=== PATIENT | female | born 1980 | race Caucasian/White ===

== ENCOUNTER 2018-09-29 16:37 | Emergency (ER) | payer OTHER, MEDICAID, SELFPAY ==
[2018-09-29 16:40] VITALS: BP 149/94; PULSE 100; RESP 24; TEMP 36.3; O2SAT 97; BMI 20.5
--- NOTE | 2018-09-29 17:41 | ED.EXTPRO ---
HPI - Extremity Problem <RICH Dunn-BC - Last Filed: 09/29/18 19:35> General Chief complaint: Extremity Problem,Nontraumatic Stated complaint: severe leg pain Time Seen by Provider: 09/29/18 17:16 Source: patient Mode of arrival: ambulatory Limitations: no limitations History of Present Illness HPI Narrative: Patient is a 38-year-old female smoker with history of anxiety disorder presents with chief complaint of left with left pain x2 weeks. She has not seen anybody for it. She has not taken anything for it, other than ibuprofen a few days ago. She states that it got worse last night. States that this terrible and she cannot move her leg. She denies any fever nausea vomiting or diarrhea. She adamantly denies any falls, fractures, bone abnormalities. She denies any fevers nausea vomiting or diarrhea. She denies any laceration, abrasion or problems. Related Data Home Medications Medication Instructions Recorded Confirmed [SONG/MAG/ZINC] 1 tab PO TID #0 03/04/17 buprenorphine-naloxone [Suboxone] 16 mg OR #0 06/15/17 Previous Rx's Medication Instructions Recorded ondansetron [Zofran ODT] 4 mg SUBLINGUAL Q6HP PRN #20 odt 03/04/17 pramipexole 0.125 mg PO TID #90 tab 03/22/17 chlordiazepoxide HCl 5 mg PO BID #60 cap 04/01/17 ibuprofen 800 mg PO TIDP PRN #90 tab 04/01/17 clonidine HCl 0.1 mg PO TID #90 tab 04/22/17 orphenadrine citrate 100 mg PO BIDP PRN #60 tab 06/09/17 prednisone 50 mg PO AMCC #5 tab 06/15/17 norethindrone-e.estradiol-iron 1 tab PO QDAY #1 pac 05/25/18 [Blisovi 24 Fe] Allergies Allergy/AdvReac Type Severity Reaction Status Date / Time No Known Allergies Allergy Uncoded 10/07/17 12:33 Review of Systems <LUCA Dunn - Last Filed: 09/29/18 19:35> Constitutional Denies chills, Denies fever(s), Denies frequent falls, Denies headache(s), Denies lethargy and Denies weakness ENT Ears, Nose, Mouth, and Throat: Denies headache(s) Cardiovascular Denies dyspnea and Denies dyspnea on exertion Respiratory Denies chest congestion, Denies pain on inspiration, Denies pain with cough, Denies dyspnea and Denies dyspnea on exertion Gastrointestinal Gastrointestinal: Denies abdominal pain, Denies diarrhea, Denies nausea and Denies vomiting Genitourinary Denies dysuria Musculoskeletal Reports as per HPI and Denies numbness Integumentary/Breasts Reports as per HPI Neurologic Denies frequent falls, Denies headache(s), Denies lack of coordination, Denies numbness and Denies weakness PFSH <XIN Dunn - Last Filed: 09/29/18 19:35> Family History (Updated 04/06/17 @ 00:00 by Conversion Provider) Father Age: 62 Diabetes mellitus Hypertension High cholesterol Grandfather Heart disease Social History Smoking Status: Current every day smoker Family History (Updated 04/06/17 @ 00:00 by Conversion Provider) Father Age: 62 Diabetes mellitus Hypertension High cholesterol Grandfather Heart disease Social History Smoking Status: Current every day smoker Exam <XIN Dunn - Last Filed: 09/29/18 19:35> Narrative Exam Narrative: GENERAL: This is a well-nourished, well-developed patient, sitting in wheelchair HEAD: Atraumatic. Normocephalic. No temporal or scalp tenderness. EYES: Pupils equal round and reactive. Extraocular motions intact. No scleral icterus. No injection or drainage. NECK: Trachea midline. No JVD or lymphadenopathy. Supple, nontender, no meningeal signs. CARDIOVASCULAR: Regular rate and rhythm RESPIRATORY: Clear to auscultation. Breath sounds equal bilaterally. No wheezes, rales, or rhonchi. GASTROINTESTINAL: Abdomen soft, non-tender, nondistended. No hepato-splenomegaly, or palpable masses. No guarding. EXTREMITIES: No clubbing, cyanosis, or edema. No joint tenderness, effusion, or edema noted. palpable pedal pulses bilaterally. diffuse tenderness to palpation of left thigh. Patient is able to hold left leg off of stretcher as well as bend left knee to 90?. BACK: Nontender without deformity or crepitance. No flank tenderness. NEURO: AOx3. Wearing sunglasses in the exam room. SKIN: Birthmark noted over left knee. Patient states is normal for her. No abrasion laceration ecchymosis noted left leg. Initial Vital Signs Initial Vital Signs: Vital Signs Temperature 97.3 F L 09/29/18 16:40 Pulse Rate 100 H 09/29/18 16:40 Respiratory Rate 24 09/29/18 16:40 Blood Pressure 149/94 H 09/29/18 16:40 Pulse Oximetry 97 09/29/18 16:40 <Akhil Christiansen DO - Last Filed: 09/30/18 03:23> Initial Vital Signs Initial Vital Signs: Vital Signs Temperature 97.3 F L 09/29/18 16:40 Pulse Rate 100 H 09/29/18 16:40 Respiratory Rate 24 09/29/18 16:40 Blood Pressure 149/94 H 09/29/18 16:40 Pulse Oximetry 97 09/29/18 16:40 Course <IXN Dunn - Last Filed: 09/29/18 19:35> Orders Ordered: Discontinued Medications Acetaminophen (Tylenol) 975 mg PO NOW ONE Stop: 09/29/18 19:08 Last Admin: 09/29/18 19:13 Dose: 975 mg Cyclobenzaprine HCl (Flexeril) 10 mg PO NOW ONE Stop: 09/29/18 19:08 Last Admin: 09/29/18 19:13 Dose: 10 mg Ketorolac Tromethamine (Toradol) 60 mg IM NOW ONE Stop: 09/29/18 17:54 Last Admin: 09/29/18 18:18 Dose: 60 mg Vital Signs - 8 hr 09/29/18 16:40 09/29/18 19:23 Temperature 97.3 F L Pulse Rate 100 H 80 Respiratory Rate 24 18 Blood Pressure 149/94 H Blood Pressure [Left Arm] 128/76 Pulse Oximetry 97 100 <Akhil Christiansen DO - Last Filed: 09/30/18 03:23> Orders Ordered: Discontinued Medications Acetaminophen (Tylenol) 975 mg PO NOW ONE Stop: 09/29/18 19:08 Last Admin: 09/29/18 19:13 Dose: 975 mg Cyclobenzaprine HCl (Flexeril) 10 mg PO NOW ONE Stop: 09/29/18 19:08 Last Admin: 09/29/18 19:13 Dose: 10 mg Ketorolac Tromethamine (Toradol) 60 mg IM NOW ONE Stop: 09/29/18 17:54 Last Admin: 09/29/18 18:18 Dose: 60 mg Vital Signs - 8 hr 09/29/18 16:40 09/29/18 19:23 Temperature 97.3 F L Pulse Rate 100 H 80 Respiratory Rate 24 18 Blood Pressure 149/94 H Blood Pressure [Left Arm] 128/76 Pulse Oximetry 97 100 MDM - Extremity (Nontraumatic) <XIN Dunn - Last Filed: 09/29/18 19:35> Imaging Data Venous US: Radiologist's impression: [address] [address] Ultrasound Report Signed Patient: Urmila Wiley [facility]#: [id number] : 1980Acct:[id number] Age/Sex: 38 / FDate of Service: 09/29/18 Loc: ED Accession Number: [id number] Procedure: US periph venous low extrem lt Ordering Provider: Steff Norman PROCEDURE: US PERIPH VENOUS LOW EXTREM LT INDICATIONS: PAIN TECHNIQUE: Real-time imaging, as well as color and pulse Doppler interrogation, were performed of the lower extremity deep veins from the inguinal ligament to the popliteal fossa. COMPARISON: None. FINDINGS: The common femoral, femoral and popliteal veins are normally compressible, and free of intraluminal thrombus. Color and pulse Doppler demonstrate normal phasic intraluminal flow. There is normal augmentation response to distal compression maneuver. IMPRESSION: 1. No evidence of deep venous thrombosis in the left lower extremity. Dictated by: Lucas Ospina M.D. on 09/29/2018 at 19:01 Approved by: Lucas Ospina M.D. on 09/29/2018 at 19:01 [facility] Narrative Medical decision making narrative: The patient is a 38-year-old female presents with a chief complaint of left leg pain. She had a negative ultrasound for DVT, which I obtained due to her risk factors of smoking with control. She was given Toradol in the emergency department for pain. Upon re-evaluation, she was lying on her stretcher very relaxed, appeared to be sleeping respirations even. I discussed an x-ray with her, but the patient did not see the reason as there was no trauma or bone injury. she was given Tylenol as well as Flexeril the emergency department. She declined to give a urinalysis during her stay in the emergency department. She was discharged with no issues. I encouraged her to follow up with primary care provider, and discussed coming back to the emergency department for any acute concerns Discharge Plan Departure Patient Disposition: Home Clinical Impression: Acute leg pain Qualifiers: Laterality: left Qualified Code(s): M79.605 - Pain in left leg Discharge Date/Time: 09/29/18 19:54 Interventions: ED Discharge Assessment Last Done: 09/29/18 19:53 Instructions: How To Perform RICE (Rest, Ice, Compress, Elevate), DI for Leg Pain Activity Restrictions/Additional Instructions: Your ultrasound shows no blood clot. Please use rest ice compression elevation. Please take fapb-ann-glnuwge pain medications as needed and able. I would take ibuprofen 6 hours after the Toradol injection. Please follow up with primary care provider if necessary. Radha Capellan is listed as your PCP. You can find a primary care provider by contacting [facility] at [phone]. Prescriptions: No Action [SONG/MAG/ZINC] 1 tab PO TID Qty: 0 RF: 0 ondansetron [Zofran ODT] 4 MG tablet,disintegrating 4 mg Sublingual Q6HP PRNQty: 20 RF: 0 pramipexole 0.125 MG tablet 0.125 mg PO TID Qty: 90 RF: 1 ibuprofen 800 MG tablet 800 mg PO TIDP PRNQty: 90 RF: 3 chlordiazepoxide HCl 5 MG capsule 5 mg PO BID Qty: 60 RF: 0 clonidine HCl 0.1 MG tablet 0.1 mg PO TID Qty: 90 RF: 0 orphenadrine citrate 100 MG tablet extended release 100 mg PO BIDP PRNQty: 60 RF: 0 buprenorphine-naloxone [Suboxone] 8 MG/2 MG film 16 mg OR Qty: 0 RF: 0 prednisone 50 MG tablet 50 mg PO AMCC Qty: 5 RF: 0 norethindrone-e.estradiol-iron [Blisovi 24 Fe] 1 mg-20 mcg (24)/75 mg (4) tablet 1 tab PO QDAY Qty: 1 RF: 6 Referrals: Kyung Capellan PA-C [Primary Care Provider] - <Akhil Christiansen DO - Last Filed: 09/30/18 03:23> Cosign ED Attending Shelby Attestation: I was immediately available in the department for consultation. Documentation has been reviewed. I agree with assessment and plan.
--- NOTE | 2018-09-29 18:12 | DI.US.S_ITS ---
PROCEDURE: US PERIPH VENOUS LOW EXTREM LT INDICATIONS: PAIN TECHNIQUE: Real-time imaging, as well as color and pulse Doppler interrogation, were performed of the lower extremity deep veins from the inguinal ligament to the popliteal fossa. COMPARISON: None. FINDINGS: The common femoral, femoral and popliteal veins are normally compressible, and free of intraluminal thrombus. Color and pulse Doppler demonstrate normal phasic intraluminal flow. There is normal augmentation response to distal compression maneuver. IMPRESSION: 1. No evidence of deep venous thrombosis in the left lower extremity. Dictated by: Lucas Ospina M.D. on 09/29/2018 at 19:01 Approved by: Lucas Ospina M.D. on 09/29/2018 at 19:01
[2018-09-29] MEDS: KETOROLAC 60 MG/2 ML VIAL IM (18:18)
[2018-09-29] MEDS: CYCLOBENZAPRINE 10 MG TABLET PO (19:13)
[2018-09-29] MEDS: ACETAMINOPHEN 325 MG TABLET 975 MG PO (19:13)
--- NOTE | 2018-09-29 19:22 | ED_ITS ---
HPI - Extremity Problem <RICH Dunn-BC - Last Filed: 09/29/18 19:35> General Chief complaint: Extremity Problem,Nontraumatic Stated complaint: severe leg pain Time Seen by Provider: 09/29/18 17:16 Source: patient Mode of arrival: ambulatory Limitations: no limitations History of Present Illness HPI Narrative: Patient is a 38-year-old female smoker with history of anxiety disorder presents with chief complaint of left with left pain x2 weeks. She has not seen anybody for it. She has not taken anything for it, other than ibuprofen a few days ago. She states that it got worse last night. States that this terrible and she cannot move her leg. She denies any fever nausea vomiting or diarrhea. She adamantly denies any falls, fractures, bone abnormalities. She denies any fevers nausea vomiting or diarrhea. She denies any laceration, abrasion or problems. Related Data Home Medications Medication Instructions Recorded Confirmed [SONG/MAG/ZINC] 1 tab PO TID #0 03/04/17 buprenorphine-naloxone [Suboxone] 16 mg OR #0 06/15/17 Previous Rx's Medication Instructions Recorded ondansetron [Zofran ODT] 4 mg SUBLINGUAL Q6HP PRN #20 odt 03/04/17 pramipexole 0.125 mg PO TID #90 tab 03/22/17 chlordiazepoxide HCl 5 mg PO BID #60 cap 04/01/17 ibuprofen 800 mg PO TIDP PRN #90 tab 04/01/17 clonidine HCl 0.1 mg PO TID #90 tab 04/22/17 orphenadrine citrate 100 mg PO BIDP PRN #60 tab 06/09/17 prednisone 50 mg PO AMCC #5 tab 06/15/17 norethindrone-e.estradiol-iron 1 tab PO QDAY #1 pac 05/25/18 [Blisovi 24 Fe] Allergies Allergy/AdvReac Type Severity Reaction Status Date / Time No Known Allergies Allergy Uncoded 10/07/17 12:33 Review of Systems <LUCA Dunn - Last Filed: 09/29/18 19:35> Constitutional Denies chills, Denies fever(s), Denies frequent falls, Denies headache(s), Denies lethargy and Denies weakness ENT Ears, Nose, Mouth, and Throat: Denies headache(s) Cardiovascular Denies dyspnea and Denies dyspnea on exertion Respiratory Denies chest congestion, Denies pain on inspiration, Denies pain with cough, Denies dyspnea and Denies dyspnea on exertion Gastrointestinal Gastrointestinal: Denies abdominal pain, Denies diarrhea, Denies nausea and Den ies vomiting Genitourinary Denies dysuria Musculoskeletal Reports as per HPI and Denies numbness Integumentary/Breasts Reports as per HPI Neurologic Denies frequent falls, Denies headache(s), Denies lack of coordination, Denies numbness and Denies weakness PFSH <XIN Dunn - Last Filed: 09/29/18 19:35> Family History (Updated 04/06/17 @ 00:00 by Conversion Provider) Father Age: 62 Diabetes mellitus Hypertension High cholesterol Grandfather Heart disease Social History Smoking Status: Current every day smoker Family History (Updated 04/06/17 @ 00:00 by Conversion Provider) Father Age: 62 Diabetes mellitus Hypertension High cholesterol Grandfather Heart disease Social History Smoking Status: Current every day smoker Exam <XIN Dunn - Last Filed: 09/29/18 19:35> Narrative Exam Narrative: GENERAL: This is a well-nourished, well-developed patient, sitting in wheelchair HEAD: Atraumatic. Normocephalic. No temporal or scalp tenderness. EYES: Pupils equal round and reactive. Extraocular motions intact. No scleral icterus. No injection or drainage. NECK: Trachea midline. No JVD or lymphadenopathy. Supple, nontender, no meningeal signs. CARDIOVASCULAR: Regular rate and rhythm RESPIRATORY: Clear to auscultation. Breath sounds equal bilaterally. No wheezes, rales, or rhonchi. GASTROINTESTINAL: Abdomen soft, non-tender, nondistended. No hepato- splenomegaly, or palpable masses. No guarding. EXTREMITIES: No clubbing, cyanosis, or edema. No joint tenderness, effusion, or edema noted. palpable pedal pulses bilaterally. diffuse tenderness to palpation of left thigh. Patient is able to hold left leg off of stretcher as well as bend left knee to 90?. BACK: Nontender without deformity or crepitance. No flank tenderness. NEURO: AOx3. Wearing sunglasses in the exam room. SKIN: Birthmark noted over left knee. Patient states is normal for her. No abrasion laceration ecchymosis noted left leg. Initial Vital Signs Initial Vital Signs: Vital Signs Temperature 97.3 F L 09/29/18 16:40 Pulse Rate 100 H 09/29/18 16:40 Respiratory Rate 24 09/29/18 16:40 Blood Pressure 149/94 H 09/29/18 16:40 Pulse Oximetry 97 09/29/18 16:40 <Akhil Christiansen DO - Last Filed: 09/30/18 03:23> Initial Vital Signs Initial Vital Signs: Vital Signs Temperature 97.3 F L 09/29/18 16:40 Pulse Rate 100 H 09/29/18 16:40 Respiratory Rate 24 09/29/18 16:40 Blood Pressure 149/94 H 09/29/18 16:40 Pulse Oximetry 97 09/29/18 16:40 Course <XIN Dunn - Last Filed: 09/29/18 19:35> Orders Ordered: Discontinued Medications Acetaminophen (Tylenol) 975 mg PO NOW ONE Stop: 09/29/18 19:08 Last Admin: 09/29/18 19:13 Dose: 975 mg Cyclobenzaprine HCl (Flexeril) 10 mg PO NOW ONE Stop: 09/29/18 19:08 Last Admin: 09/29/18 19:13 Dose: 10 mg Ketorolac Tromethamine (Toradol) 60 mg IM NOW ONE Stop: 09/29/18 17:54 Last Admin: 09/29/18 18:18 Dose: 60 mg Vital Signs - 8 hr 09/29/18 16:40 09/29/18 19:23 Temperature 97.3 F L Pulse Rate 100 H 80 Respiratory Rate 24 18 Blood Pressure 149/94 H Blood Pressure [Left Arm] 128/76 Pulse Oximetry 97 100 <Akhil Christiansen DO - Last Filed: 09/30/18 03:23> Orders Ordered: Discontinued Medications Acetaminophen (Tylenol) 975 mg PO NOW ONE Stop: 09/29/18 19:08 Last Admin: 09/29/18 19:13 Dose: 975 mg Cyclobenzaprine HCl (Flexeril) 10 mg PO NOW ONE Stop: 09/29/18 19:08 Last Admin: 09/29/18 19:13 Dose: 10 mg Ketorolac Tromethamine (Toradol) 60 mg IM NOW ONE Stop: 09/29/18 17:54 Last Admin: 09/29/18 18:18 Dose: 60 mg Vital Signs - 8 hr 09/29/18 16:40 09/29/18 19:23 Temperature 97.3 F L Pulse Rate 100 H 80 Respiratory Rate 24 18 Blood Pressure 149/94 H Blood Pressure [Left Arm] 128/76 Pulse Oximetry 97 100 MDM - Extremity (Nontraumatic) <XIN Dunn - Last Filed: 09/29/18 19:35> Imaging Data Venous US: Radiologist's impression: [address] [address] Ultrasound Report Signed Patient: Urmila Wiley [facility]#: [id number] : 1980Acct:[id number] Age/Sex: 38 / FDate of Service: 09/29/18 Loc: ED Accession Number: [id number] Procedure: US periph venous low extrem lt Ordering Provider: Steff Norman PROCEDURE: US PERIPH VENOUS LOW EXTREM LT INDICATIONS: PAIN TECHNIQUE: Real-time imaging, as well as color and pulse Doppler interrogation, were performed of the lower extremity deep veins from the inguinal ligament to the popliteal fossa. COMPARISON: None. FINDINGS: The common femoral, femoral and popliteal veins are normally compressible, and free of intraluminal thrombus. Color and pulse Doppler demonstrate normal phasic intraluminal flow. There is normal augmentation response to distal compression maneuver. IMPRESSION: 1. No evidence of deep venous thrombosis in the left lower extremity. Dictated by: Lucas Ospina M.D. on 09/29/2018 at 19:01 Approved by: Lucas Ospina M.D. on 09/29/2018 at 19:01 [facility] Narrative Medical decision making narrative: The patient is a 38-year-old female presents with a chief complaint of left leg pain. She had a negative ultrasound for DVT, which I obtained due to her risk factors of smoking with control. She was given Toradol in the emergency department for pain. Upon re-evaluation, she was lying on her stretcher very relaxed, appeared to be sleeping respirations even. I discussed an x-ray with her, but the patient did not see the reason as there was no trauma or bone injury. she was given Tylenol as well as Flexeril the emergency department. She declined to give a urinalysis during her stay in the emergency department. She was discharged with no issues. I encouraged her to follow up with primary care provider, and discussed coming back to the emergency department for any acute concerns Discharge Plan Departure Patient Disposition: Home Clinical Impression: Acute leg pain Qualifiers: Laterality: left Qualified Code(s): M79.605 - Pain in left leg Discharge Date/Time: 09/29/18 19:54 Interventions: ED Discharge Assessment Last Done: 09/29/18 19:53 Instructions: How To Perform RICE (Rest, Ice, Compress, Elevate), DI for Leg Pain Activity Restrictions/Additional Instructions: Your ultrasound shows no blood clot. Please use rest ice compression elevation. Please take ofrb-hny-ivhkdoz pain medications as needed and able. I would take ibuprofen 6 hours after the Toradol injection. Please follow up with primary care provider if necessary. Radha Capellan is listed as your PCP. You can find a primary care provider by contacting [facility] at [phone]. Prescriptions: No Action [SONG/MAG/ZINC] 1 tab PO TID Qty: 0 RF: 0 ondansetron [Zofran ODT] 4 MG tablet,disintegrating 4 mg Sublingual Q6HP PRNQty: 20 RF: 0 pramipexole 0.125 MG tablet 0.125 mg PO TID Qty: 90 RF: 1 ibuprofen 800 MG tablet 800 mg PO TIDP PRNQty: 90 RF: 3 chlordiazepoxide HCl 5 MG capsule 5 mg PO BID Qty: 60 RF: 0 clonidine HCl 0.1 MG tablet 0.1 mg PO TID Qty: 90 RF: 0 orphenadrine citrate 100 MG tablet extended release 100 mg PO BIDP PRNQty: 60 RF: 0 buprenorphine-naloxone [Suboxone] 8 MG/2 MG film 16 mg OR Qty: 0 RF: 0 prednisone 50 MG tablet 50 mg PO AMCC Qty: 5 RF: 0 norethindrone-e.estradiol-iron [Blisovi 24 Fe] 1 mg-20 mcg (24)/75 mg (4) tablet 1 tab PO QDAY Qty: 1 RF: 6 Referrals: Kyung Capellan PA-C [Primary Care Provider] - <Akhil Christiansen DO - Last Filed: 09/30/18 03:23> Cosign ED Attending [place] Attestation: I was immediately available in the department for consultation. Documentation has been reviewed. I agree with assessment and plan.
[2018-09-29 19:23] VITALS: BP 128/76; PULSE 80; RESP 18; O2SAT 100
== END 2018-09-29 19:54 | disposition home or self-care (01) ==
PROVIDERS: Emergency Provider Nurse Practitioner Family; Family Provider Physician Assistant; PCP Physician Assistant
DX: M79.605 Pain in left leg (principal)
CPT/HCPCS: 93971; 96372; 99283; J1885

== ENCOUNTER 2018-10-08 10:18 | Inpatient (IN) | payer OTHER, MEDICAID, SELFPAY ==
[2018-10-08] VITALS (13 sets, daily range): BP systolic 120–178; BP diastolic 73–102; PULSE 81–130; RESP 14–22; TEMP 36.2–37.4; O2SAT 98–100; BMI 19.3
--- NOTE | 2018-10-08 | DI.RAD.S_ITS ---
PROCEDURE: XR PELVIS 1-2V INDICATIONS: LEFT HIP FRACTURE TECHNIQUE: 2 view(s) of the pelvis acquired. COMPARISON: [facility], CT, CT ANGIO ABDOMEN/FEMORAL, 10/08/2018, 11:40. FINDINGS: Bones: No dislocations. No suspicious bony lesions. There is a diagonal fracture that appears acute or subacute at the femoral neck on the left, low femoral neck positioning. Soft tissues: Visualized bowel gas pattern is normal. No suspicious soft tissue calcifications. IMPRESSION: Acute or subacute left femoral neck fracture, low femoral neck positioning. Dictated by: Eliazar Crouch M.D. on 10/08/2018 at 17:51 Approved by: Eliazar Crouch M.D. on 10/08/2018 at 17:53
--- NOTE | 2018-10-08 | DI.RAD.S_ITS ---
PROCEDURE: XR HIP W PEL IF DONE RT 2V INDICATIONS: LEFT HIP REPAIR TECHNIQUE: 2 view(s) of the hip acquired. COMPARISON: None. FINDINGS: Bones: Patient is status post a left dynamic hip screw placement, with hardware components in expected positions. The hip joint appears congruent. The visualized bony structures appear intact. Soft tissues: Overlying postoperative changes are noted. No suspicious soft tissue densities. IMPRESSION: Expected postoperative change after low femoral neck fracture by placement of a lateral fixation plate and dynamic hip screw. Alignment is anatomic. Dictated by: Eliazar Crouch M.D. on 10/08/2018 at 21:14 Approved by: Eliazar Crouch M.D. on 10/08/2018 at 21:15
--- NOTE | 2018-10-08 10:22 | DI.US.S_ITS ---
PROCEDURE: US [facility] VENOUS LOW EXTREM LT INDICATIONS: pain, swelling, DVT? TECHNIQUE: Real-time imaging, as well as color and pulse Doppler interrogation, were performed of the lower extremity deep veins from the inguinal ligament to the popliteal fossa. COMPARISON: [facility], [facility] VENOUS LOW EXTREM LT, 09/29/2018, 18:27. FINDINGS: The common femoral, femoral and popliteal veins are normally compressible, and free of intraluminal thrombus. Color and pulse Doppler demonstrate normal phasic intraluminal flow. There is normal augmentation response to distal compression maneuver. IMPRESSION: No DVT as cause of anterior thigh pain left lower extremity. Dictated by: Eliazar Crouch M.D. on 10/08/2018 at 11:32 Approved by: Eliazar Crouch M.D. on 10/08/2018 at 11:33
--- NOTE | 2018-10-08 10:30 | ED_ITS ---
HPI - Extremity Injury (Lower) General Chief Complaint: Extremity Problem,Nontraumatic Stated Complaint: Leg Pain Time Seen by Provider: 10/08/18 10:22 Source: patient and EMS Mode of arrival: EMS Limitations: no limitations History of Present Illness HPI Narrative: 38-year-old female former smoker with opioid history returns for re-evaluation of severe pain in her left lower extremity. She denies any injury but states that there is some swelling and redness. she missed her Suboxone appointment today. She denies fever or chills. She denies nausea, vomiting. she denies any street drugs. She denies any use of opioids since 2017. She has severe pain in her leg with motion, improved with rest. She did fall over on her leg earlier today and that seemed to set her pain off. She was evaluated 1 week ago for pain in her leg x2 weeks. At that visit she had normal US, but not other significant findings. Injury: Left: thigh Place: home Severity: moderate Relieving factors: rest Exacerbating factors: weight bearing and movement Other symptoms: none Related Data Home Medications Medication Instructions Recorded Confirmed buprenorphine-naloxone [Suboxone] 16 mg SUBLINGUAL DAILY #0 06/15/17 10/08/18 clonidine HCl 0.1 mg PO BID 10/08/18 10/08/18 hydroxyzine HCl 25 mg PO TID 10/08/18 10/08/18 norethindrone-e.estradiol-iron 1 tab PO DAILY 10/08/18 10/08/18 [Keisha 24 Fe] Previous Rx's Medication Instructions Recorded doxycycline hyclate 100 mg PO BID #20 tab 10/08/18 Allergies Allergy/AdvReac Type Severity Reaction Status Date / Time No Known Drug Allergies Allergy Verified 10/08/18 10:40 Review of Systems Constitutional Denies chills, Denies fever(s), Denies lethargy and Denies weakness Eyes Denies change in vision, Denies eye discharge, Denies irritation and Denies loss of vision ENT Ears, Nose, Mouth, and Throat: Denies change in voice, Denies neck pain and Denies sore throat Cardiovascular Denies chest pain, Denies irregular heart rhythm, Denies lightheadedness, Denies palpitations, Denies dyspnea, Denies dyspnea on exertion and Denies orthopnea Respiratory Denies cough, Denies dyspnea, Denies dyspnea on exertion and Denies wheezing Gastrointestinal Gastrointestinal: Denies abdominal pain, Denies change in bowel habits, Denies diarrhea, Denies nausea and Denies vomiting Genitourinary Denies hematuria, Denies flank pain, Denies urinary incontinence and Denies urinary urgency Musculoskeletal Reports limited range of motion and Denies neck pain Integumentary/Breasts Denies pruritus, Reports erythema, Denies rash, Reports skin pain, Reports skin swelling and Denies wounds Neurologic Denies confusion, Denies loss of vision and Denies weakness Psychiatric Denies anxiety, Denies confusion, Denies depression, Denies homicidal ideation and Denies suicidal ideation Endocrine Denies palpitations Hematologic/Lymphatic Denies easy bruising Allergic/Immunologic Denies wheezing PFSH Family History (Updated 04/06/17 @ 00:00 by Conversion Provider) Father Age: 62 Diabetes mellitus Hypertension High cholesterol Grandfather Heart disease Social History Smoking Status: Current every day smoker Family History Father Age: 62 Diabetes mellitus Hypertension High cholesterol Grandfather Heart disease Social History Smoking Status: Current every day smoker Exam Narrative Exam Narrative: GENERAL: 38F appears disheveled, tearful, rubbing her left leg. Thin, unkempt HEAD: Atraumatic. Normocephalic. No temporal or scalp tenderness. EYES: Pupils equal round and reactive. Extraocular motions intact. No scleral icterus. No injection or drainage. ENT: Nose without bleeding, purulent drainage or septal hematoma. Throat without erythema, tonsillar hypertrophy or exudate. Uvula midline. Airway patent. NECK: Trachea midline. No JVD or lymphadenopathy. Supple, nontender, no meningeal signs. CARDIOVASCULAR: Regular rate and rhythm without murmurs, gallops, or rubs. RESPIRATORY: Clear to auscultation. Breath sounds equal bilaterally. No wheezes, rales, or rhonchi. GASTROINTESTINAL: Abdomen soft, non-tender, nondistended. No hepato- splenomegaly, or palpable masses. No guarding. EXTREMITIES: Mild edema, erythema on dorsum of foot and anterior hutchinson. Patient tender in medial thigh. No erythema, warmth, induration or fluctuance here. BACK: Nontender without deformity or crepitance. No flank tenderness. NEURO: AOx3. Initial Vital Signs Initial Vital Signs: Vital Signs Temperature 97.5 F L 10/08/18 10:30 Pulse Rate 101 H 10/08/18 10:30 Respiratory Rate 20 10/08/18 10:30 Blood Pressure 139/79 10/08/18 10:30 Pulse Oximetry 100 10/08/18 10:30 Course Orders Ordered: ED Orders 10/08/18 10:15 Basic Metabolic Panel Stat C-Reactive Protein Quant Stat C-Reactive Protein Quant Stat Complete Blood Count AUTO DIFF Stat Creatine Kinase Stat Erythrocyte Sedimentation Rate Stat Procalcitonin Stat 10/08/18 10:22 US periph venous low extrem lt Stat 10/08/18 11:24 CT angio abdomen/femoral Stat 10/08/18 13:34 Urine Drug Screen, Rapid Stat 10/08/18 14:12 Consult to Physical Therapy Evaluate & Treat 10/08/18 15:41 Lactate (Lactic Acid) Stat Discontinued Medications Hydromorphone HCl (Dilaudid) 1 mg IV NOW ONE Stop: 10/08/18 15:11 Vancomycin HCl 1,250 mg/ (Sodium Chloride) 250 mls @ 250 mls/hr IV NOW ONE Stop: 10/08/18 15:11 Last Admin: 10/08/18 15:20 Dose: 250 mls/hr Ketorolac Tromethamine (Toradol) 15 mg IV NOW ONE Stop: 10/08/18 11:14 Last Admin: 10/08/18 11:22 Dose: 15 mg Lorazepam (Ativan) 1 mg IV NOW ONE Stop: 10/08/18 11:49 Last Admin: 10/08/18 12:04 Dose: 1 mg Reevaluation(s) Reevaluation #1: Patient having significant difficulties with ambulation despite extensive helped by myself and nursing staff. She lives at home with very little support. Though imaging, exam and labs would not suggest any significant underlying etiology she is unable to ambulate safely and, therefore, physical therapy was asked to evaluate the patient. Please see their note for the details but they state the patient cannot safely ambulate and is a significant fall risk Consultations Consultation #1: Dr. Doe happy to accept on her service Vital Signs - 8 hr 10/08/18 10:30 10/08/18 11:24 10/08/18 14:17 Temperature 97.5 F L Pulse Rate 101 H 85 98 H Respiratory Rate 20 18 20 Blood Pressure 139/79 Blood Pressure [Right Arm] 148/85 H 130/96 H Pulse Oximetry 100 100 100 10/08/18 15:50 Temperature Pulse Rate 84 Respiratory Rate 18 Blood Pressure Blood Pressure [Right Arm] 120/73 Pulse Oximetry 99 MDM - Extremity Injury (Lower) Lab Data Result diagrams: 10/08/18 10:15 10/08/18 10:15 Lab Results 10/08/18 10/08/18 10/08/18 Range/Units 10:15 10:15 10:15 WBC (4.5-11.0) X10^3/uL RBC (4.0-5.2) X10^6/uL Hgb (12.0-16.0) g/dL Hct (36-46) % MCV (80-100) fL MCH (26-34) PG MCHC (30-36) % RDW (11.6-14.8) % Plt Count (150-400) X10^3/uL Neut % (Auto) (50-75) % Lymph % (Auto) (25-40) % [place] % (Auto) (3-14) % Eos % (Auto) (2-4) % Baso % (Auto) (0-2) % Neut # (Auto) (8663-4843) /uL Lymph # (Auto) (6563-5916) /uL [place] # (Auto) (0-900) /uL Eos # (Auto) (0-450) /uL Baso # (Auto) (0-100) /uL ESR 52 H (0-20) MM/HR Sodium (137-145) mmol/L Potassium (3.4-5.1) mmol/L Chloride (98-107) mmol/L Carbon Dioxide (22-32) mmol/L BUN (7-17) mg/dL Creatinine (0.52-1.04) mg/dL Estimated GFR (>60) mL/min BUN/Creatinine Ratio (6-22) Glucose (70-100) mg/dL Lactate (0.7-2.1) mmol/L Calcium (8.4-10.2) mg/dL Total Creatine Kinase (30-135) U/L C-Reactive Protein 3.2 H (<1.0) mg/dL Procalcitonin < 0.05 (<0.5) ng/mL Urine Opiates Screen (Negative) Ur Oxycodone Screen (Negative) Urine Methadone Screen (Negative) Ur Barbiturates Screen (Negative) U Tricyclic Antidepress (Negative) Ur Phencyclidine Scrn (Negative) Ur Amphetamines Screen (Negative) U Methamphetamines Scrn (Negative) Ur MDMA Scrn (Ecstasy) (Negative) U Benzodiazepines Scrn (Negative) Urine Cocaine Screen (Negative) U Marijuana (THC) Screen (Negative) 10/08/18 10/08/18 10/08/18 Range/Units 10:15 10:15 10:15 WBC 7.6 (4.5-11.0) X10^3/uL RBC 4.62 (4.0-5.2) X10^6/uL Hgb 13.1 (12.0-16.0) g/dL Hct 39.2 (36-46) % MCV 84.9 (80-100) fL MCH 28.3 (26-34) PG MCHC 33.4 (30-36) % RDW 13.1 (11.6-14.8) % Plt Count 430 H (150-400) X10^3/uL Neut % (Auto) 57.7 (50-75) % Lymph % (Auto) 29.6 (25-40) % [place] % (Auto) 8.8 (3-14) % Eos % (Auto) 3.1 (2-4) % Baso % (Auto) 0.8 (0-2) % Neut # (Auto) 4400 (3040-4262) /uL Lymph # (Auto) 2200 (0298-1264) /uL [place] # (Auto) 700 (0-900) /uL Eos # (Auto) 200 (0-450) /uL Baso # (Auto) 100 (0-100) /uL ESR (0-20) MM/HR Sodium 141 (137-145) mmol/L Potassium 3.3 L (3.4-5.1) mmol/L Chloride 100 (98-107) mmol/L Carbon Dioxide 29 (22-32) mmol/L BUN 16 (7-17) mg/dL Creatinine 0.60 (0.52-1.04) mg/dL Estimated GFR > 60.0 (>60) mL/min BUN/Creatinine Ratio 26.7 H (6-22) Glucose 115 H (70-100) mg/dL Lactate (0.7-2.1) mmol/L Calcium 9.5 (8.4-10.2) mg/dL Total Creatine Kinase 129 (30-135) U/L C-Reactive Protein 3.2 H (<1.0) mg/dL Procalcitonin (<0.5) ng/mL Urine Opiates Screen (Negative) Ur Oxycodone Screen (Negative) Urine Methadone Screen (Negative) Ur Barbiturates Screen (Negative) U Tricyclic Antidepress (Negative) Ur Phencyclidine Scrn (Negative) Ur Amphetamines Screen (Negative) U Methamphetamines Scrn (Negative) Ur MDMA Scrn (Ecstasy) (Negative) U Benzodiazepines Scrn (Negative) Urine Cocaine Screen (Negative) U Marijuana (THC) Screen (Negative) 10/08/18 10/08/18 Range/Units 13:34 15:41 WBC (4.5-11.0) X10^3/uL RBC (4.0-5.2) X10^6/uL Hgb (12.0-16.0) g/dL Hct (36-46) % MCV (80-100) fL MCH (26-34) PG MCHC (30-36) % RDW (11.6-14.8) % Plt Count (150-400) X10^3/uL Neut % (Auto) (50-75) % Lymph % (Auto) (25-40) % [place] % (Auto) (3-14) % Eos % (Auto) (2-4) % Baso % (Auto) (0-2) % Neut # (Auto) (9201-0763) /uL Lymph # (Auto) (3223-8113) /uL [place] # (Auto) (0-900) /uL Eos # (Auto) (0-450) /uL Baso # (Auto) (0-100) /uL ESR (0-20) MM/HR Sodium (137-145) mmol/L Potassium (3.4-5.1) mmol/L Chloride (98-107) mmol/L Carbon Dioxide (22-32) mmol/L BUN (7-17) mg/dL Creatinine (0.52-1.04) mg/dL Estimated GFR (>60) mL/min BUN/Creatinine Ratio (6-22) Glucose (70-100) mg/dL Lactate 0.8 (0.7-2.1) mmol/L Calcium (8.4-10.2) mg/dL Total Creatine Kinase (30-135) U/L C-Reactive Protein (<1.0) mg/dL Procalcitonin (<0.5) ng/mL Urine Opiates Screen Negative (Negative) Ur Oxycodone Screen Negative (Negative) Urine Methadone Screen Negative (Negative) Ur Barbiturates Screen Negative (Negative) U Tricyclic Antidepress Negative (Negative) Ur Phencyclidine Scrn Negative (Negative) Ur Amphetamines Screen Positive H (Negative) U Methamphetamines Scrn Positive H (Negative) Ur MDMA Scrn (Ecstasy) Negative (Negative) U Benzodiazepines Scrn Negative (Negative) Urine Cocaine Screen Negative (Negative) U Marijuana (THC) Screen Negative (Negative) Imaging Data Venous US: Radiologist's impression: [address] [address] Ultrasound Report Signed Patient: Urmila Wiley MMR#: [id number] : 1980Acct:[id number] Age/Sex: 38 / FDate of Service: 10/08/18 Loc: ED Accession Number: [id number] Procedure: [facility] venous low extrem lt Ordering Provider: Akhil Christiansen D.O. [facility]ED[facility] V[facility] LOW EXTREM LT INDICATIONS: pain, swelling, DVT? TECHNIQUE: Real-time imaging, as well as color and pulse Doppler interrogation, were performed of the lower extremity deep veins from the inguinal ligament to the popliteal fossa. COMPARISON: [facility], PERIP VENOUS LOW EXTREM LT, 09/29/2018, 18:27. FINDINGS: The common femoral, femoral and popliteal veins are normally compressible, and free of intraluminal thrombus. Color and pulse Doppler demonstrate normal phasic intraluminal flow. There is normal augmentation response to distal compression maneuver. IMPRESSION: No DVT as cause of anterior thigh pain left lower extremity. Dictated by: Eliazar Crouch M.D. on 10/08/2018 at 11:32 Approved by: Eliazar Crouch M.D. on 10/08/2018 at 11:33 LE CTA: Radiologist's impression: [address] [address] [address] Scan Report Signed Patient: Urmila Wiley [facility]#: [id number] : 1980Acct:[id number] Age/Sex: 38 / FDate of Service: 10/08/18 Loc: ED Accession Number: [id number] Procedure: CT angio abdomen/femoral Ordering Provider: Akhil Christiansen D.O. PROCEDURE: CT ANGIO ABDOMEN WITH BILATERAL RUNOFF INDICATIONS: severe pain, swelling, redness, multiple neg DVT studies TECHNIQUE: After the administration of intravenous contrast, 2.0 mm thick sections acquired from the diaphragm to the feet. 10 mm maximum-intensity projection (MIP) reformats were then acquired. For radiation dose reduction, the following was used: automated exposure control. COMPARISON: None. FINDINGS: Image quality: Mildly limited by patient motion. Aorta: Normal contrast opacification of the aorta. Aorta demonstrates normal caliber without aneurysmal dilatation. No atherosclerotic stenosis. No aortic dissection. Mesenteric arteries: Celiac trunk, superior and inferior mesenteric arteries appear patent. Right lower extremity: Normal contrast opacification of the right common iliac artery, external iliac artery, internal iliac artery, common femoral artery, superficial femoral artery, deep femoral artery, popliteal artery and trifurcation vessels with 2 vessel runoff to the right ankle and foot. Left lower extremity: Normal contrast opacification of the left common iliac artery, external iliac artery, internal iliac artery, common femoral artery, superficial femoral artery, deep femoral artery, popliteal artery and trifurcation vessels with 2 vessel runoff to the left ankle and foot. Extravascular soft tissues: Lung bases are clear. Heart size is normal. Liver is normal in size and enhancement. Gallbladder is within normal limits. Biliary system is non dilated. Pancreas enhances normally. Spleen is normal in size and enhancement. No adrenal nodules. Kidneys are normal in size and enhancement, without hydronephrosis. Non opacified bowel loops are normal in wall thickness and caliber. No free fluid or air. No retroperitoneal or mesenteric adenopathy. No ventral hernias. No suspicious bony lesions. No vertebral body compression fractures. 1.6 cm cyst noted in the popliteal fossa. Extensive mild soft tissue edema noted in the left calf and left ankle. IMPRESSION: 1. No evidence of vessel occlusion, hemodynamically significant stenosis or dissection. 2. Extensive soft tissue edema involving the left calf and left ankle. Finding is nonspecific but could be related to infectious cellulitis. 3. Study does not exclude lower extremity deep vein thrombosis or thrombophlebitis. Dictated by: Olamide Ramirez MD, PhD on 10/08/2018 at 12:20 Approved by: Olamide Ramirez MD, PhD on 10/08/2018 at 12:35 [facility] Narrative Medical decision making narrative: Multiple etiologies for patient's symptoms considered including: [Of DVT, cellulitis, abscess, necrotizing fasciitis, fracture, arterial thrombus versus others] Findings and discharge diagnosis discussed with patient/family followed by verbalization of understanding Discharge Plan Departure Patient Disposition: Admitted as Observation Clinical Impression: Acute leg pain Qualifiers: Laterality: left Qualified Code(s): M79.605 - Pain in left leg Cellulitis Qualifiers: Site of cellulitis: extremity Site of cellulitis of extremity: lower extremity Laterality: left Qualified Code(s): L03.116 - Cellulitis of left lower limb Admit Date/Time: 10/08/18 16:14 Admit Provider: Oly Doe
[2018-10-08 10:31] LABS: Add Manual Diff / Slide Review NO; Basophils Absolute Auto 100 /uL (0-100); Basophils Percent Auto 0.8 % (0-2); Eosinophils Absolute Auto 200 /uL (0-450); Eosinophils Percent Auto 3.1 % (2-4); Hematocrit 39.2 % (36-46); Hemoglobin 13.1 g/dL (12.0-16.0); Lymphocytes Absolute Auto 2200 /uL (1100-4500); Lymphocytes Percent Auto 29.6 % (25-40); Mean Corpuscular HGB Conc 33.4 % (30-36); Mean Corpuscular Hemoglobin 28.3 PG (26-34); Mean Corpuscular Volume 84.9 fL (80-100); Monocytes Absolute Auto 700 /uL (0-900); Monocytes Percent Auto 8.8 % (3-14); Neutrophils Absolute Auto 4400 /uL (1500-7000); Neutrophils Percent Auto 57.7 % (50-75); Platelet Count 430 X10^3/uL (150-400); Red Blood Cell Count 4.62 X10^6/uL (4.0-5.2); Red Cell Distribution Width 13.1 % (11.6-14.8); White Blood Cell Count 7.6 X10^3/uL (4.5-11.0)
[2018-10-08 10:43] LABS: BUN Creatinine Ratio 26.7 (6-22); Blood Urea Nitrogen 16 mg/dL (7-17); Calcium 9.5 mg/dL (8.4-10.2); Carbon Dioxide 29 mmol/L (22-32); Chloride 100 mmol/L (98-107); Estimated Glomerular Filt Rate > 60.0 mL/min (>60); Glucose 115 mg/dL (70-100); HEMOLYSIS < 15 (0-50); Potassium 3.3 mmol/L (3.4-5.1); Sodium 141 mmol/L (137-145)
[2018-10-08 10:45] LABS: C-Reactive Protein Quant 3.2 mg/dL (<1.0)
[2018-10-08 10:55] LABS: Erythrocyte Sedimentation Rate 52 MM/HR (0-20)
[2018-10-08 11:00] LABS: Procalcitonin < 0.05 ng/mL (<0.5)
--- NOTE | 2018-10-08 11:09 | PC.NURSE ---
upon pt receiving from EMS, pt screaming due to pain in L upper leg, thigh to groin. pt reports she had fell on the hard floor this am. She was here seen in ER about 1 wk ago for L leg pain and had an work up done on to r/o DVT. L knee has discoloration but pt denies it's from the injury and as her coby. L thigh/later hip area mildly warm to touch. L lower extremity with scattered redness and edematous (non-pitting). +2 pedal pulse, able to move L toes.
[2018-10-08] MEDS: KETOROLAC 60 MG/2 ML VIAL 15 MG IV (11:22)
--- NOTE | 2018-10-08 11:24 | DI.CT.S_ITS ---
PROCEDURE: CT ANGIO ABDOMEN WITH BILATERAL RUNOFF INDICATIONS: severe pain, swelling, redness, multiple neg DVT studies TECHNIQUE: After the administration of intravenous contrast, 2.0 mm thick sections acquired from the diaphragm to the feet. 10 mm maximum-intensity projection (MIP) reformats were then acquired. For radiation dose reduction, the following was used: automated exposure control. COMPARISON: None. FINDINGS: Image quality: Mildly limited by patient motion. Aorta: Normal contrast opacification of the aorta. Aorta demonstrates normal caliber without aneurysmal dilatation. No atherosclerotic stenosis. No aortic dissection. Mesenteric arteries: Celiac trunk, superior and inferior mesenteric arteries appear patent. Right lower extremity: Normal contrast opacification of the right common iliac artery, external iliac artery, internal iliac artery, common femoral artery, superficial femoral artery, deep femoral artery, popliteal artery and trifurcation vessels with 2 vessel runoff to the right ankle and foot. Left lower extremity: Normal contrast opacification of the left common iliac artery, external iliac artery, internal iliac artery, common femoral artery, superficial femoral artery, deep femoral artery, popliteal artery and trifurcation vessels with 2 vessel runoff to the left ankle and foot. Extravascular soft tissues: Lung bases are clear. Heart size is normal. Liver is normal in size and enhancement. Gallbladder is within normal limits. Biliary system is non dilated. Pancreas enhances normally. Spleen is normal in size and enhancement. No adrenal nodules. Kidneys are normal in size and enhancement, without hydronephrosis. Non opacified bowel loops are normal in wall thickness and caliber. No free fluid or air. No retroperitoneal or mesenteric adenopathy. No ventral hernias. No suspicious bony lesions. No vertebral body compression fractures. 1.6 cm cyst noted in the popliteal fossa. Extensive mild soft tissue edema noted in the left calf and left ankle. IMPRESSION: 1. No evidence of vessel occlusion, hemodynamically significant stenosis or dissection. 2. Extensive soft tissue edema involving the left calf and left ankle. Finding is nonspecific but could be related to infectious cellulitis. 3. Study does not exclude lower extremity deep vein thrombosis or thrombophlebitis. Dictated by: Olamide Ramirez MD, PhD on 10/08/2018 at 12:20 Approved by: Olamide Ramirez MD, PhD on 10/08/2018 at 12:35
--- NOTE | 2018-10-08 11:55 | PC.NURSE ---
Medicated pt at RAD prep for CT test due to pt unable to position her leg for imaging test due to pain
[2018-10-08] MEDS: LORazepam 2 MG/ML SYRINGE 1 MG IV (12:04)
--- NOTE | 2018-10-08 13:13 | PC.NURSE ---
Pt requested for urine sample. Pt intermittenly screaming from pain and does not want this RN to assist to commode or bedpan or touch the affected leg.
[2018-10-08 13:57] LABS: Urine Amphetamines Positive (Negative); Urine Barbiturates Negative (Negative); Urine Benzodiazepines Negative (Negative); Urine Cocaine Negative (Negative); Urine MDMA Negative (Negative); Urine Methadone Negative (Negative); Urine Methamphetamines Positive (Negative); Urine Morphine/Opi cutoff 2000 Negative (Negative); Urine Oxycodone Negative (Negative); Urine Phencyclidine Negative (Negative); Urine Tetrahydrocannabinol Negative (Negative); Urine Tricyclic Antidepressant Negative (Negative)
--- NOTE | 2018-10-08 14:45 | PT.IIE ---
Physical Therapy Inpatient Evaluation/Re-Eval M1 PT/OT-IP Prior Functional Status Start: 10/08/18 15:51 Freq: Status: Active Protocol: Document 10/08/18 14:45 AB (Rec: 10/08/18 16:22 AB [id number]) Medical Review Prior Functional Status Medical History Reviewed Yes Communication pt drowsy but able to make needs known Mobility and Gait pt stated that she is independent with all mobilities and ambulation without AD; LLE pain started ~ 1 week ago and stated that she has been using crutches to assist her with mobility Social History Household Members significant other Number of Floors (Floors) One Floor Number of Stairs To Enter/Railing? no steps to enter Home Equipment Crutches Additional Social History Comment unable to obtain other PLOF/ home set up as pt is drowsy and when more alert c/o increase pain on LLE. stated that she lives with her fiance but he will not be available 24/7 M2 PT-IP Current Condition Start: 10/08/18 15:51 Freq: Status: Active Protocol: Document 10/08/18 14:45 AB (Rec: 10/08/18 16:22 AB [id number]) Physical Therapy Current Condition Current Condition Evaluation Date 10/08/18 Treatment Diagnosis L leg pain; difficulty in walking Onset Date 10/08/18 Precautions Other Precautions per nurse: possible LLE cellulitis M3 PT-IP Subjective Start: 10/08/18 15:51 Freq: Status: Active Protocol: Document 10/08/18 14:45 AB (Rec: 10/08/18 16:22 AB [id number]) Subjective Physical Therapy Visit Type Type Initial Evaluation Visit Start Time 14:45 Visit Stop Time 15:20 Total Visit Minutes 35 Number of [employer] Visits 0 Physical Therapy Visit Comments Patient Comments pt c/o increase L anterior thigh pain Therapy Pain Assessment Pain When Pain Assessed At Rest Pain Present Pain Present Pain Reported Location Left Upper Leg Intensity 8 Scale Used increases with mobility Description Spasm Pain Management Techniques Re-positioning M4 PT-IP Mobility and Gait Start: 10/08/18 15:51 Freq: Status: Active Protocol: Document 10/08/18 14:45 AB (Rec: 10/08/18 16:22 AB [id number]) PT-Transfer Assessment Sit to and From Stand Sit to and from Stand Contact Guard Assistance 1 Person Assistance Use of Upper Extremities Equipment Transfer Assistive Device Front Wheeled Walker Orthotic/Prosthetic Devices or Brace: No Transfers Transfer Destination Bedside Commode Transfer Technique Stand Pivot Transfer Ability Level of Assist Minimal Assistance Comments Mobility Comments checked on pt and pt sitting on EOB. pt stated that she has alot of L anterior leg pain. pt agreed to move with PT. pt completed sit to stand CGA but c/o increase pain during mobility and unable to ambulate. pt screaming and crying due to pain with increarse forward trunk flexion and instructed to use FWW for support. positioned bedside commode next to pt and pt was able to complete stand pivot transfer. pt does not want to go back to bed and want to stay seated. unable to ambulate at this time with pain limiting mobility. Gait Assessment Comments Gait Comments unable at this time PT-Balance Assessment Sitting Balance and Reactions Static Sitting Balance Ability Good Dynamic Sitting Balance Ability Good Standing Balance and Reactions Static Standing Balance Ability Poor Dynamic Standing Balance Ability Poor Device Used FWW M5 PT-IP Objective Assessments Start: 10/08/18 15:51 Freq: Status: Active Protocol: Document 10/08/18 14:45 AB (Rec: 10/08/18 16:22 AB [id number]) Orientation Orientation/Cognition Level of Alertness Lethargic Orientation Name Language Function Ability Garbled Speech Safety Awareness Decreased Safety Awareness Comments pt required cues to stay awake Gross Range of Motion Lower Extremity ROM Assessment Left Impaired Impairments unable to fully check due to c /o pain with movement Strength Comments Strength Comments pain limiting LLE movement Muscle Tone Muscle Tone WNL Yes M6 PT-IP Treatment Start: 10/08/18 15:51 Freq: Status: Active Protocol: Document 10/08/18 14:45 AB (Rec: 10/08/18 16:22 AB [id number]) Physical Therapy Treatment Education Education Provided Safety M7 PT-IP Assessment and Plan Start: 10/08/18 15:51 Freq: Status: Active Protocol: Document 10/08/18 14:45 AB (Rec: 10/08/18 16:22 AB [id number]) PT Summary Assessment and Plan Potential Rehabilitation Potential Fair Status of Condition at Evaluation Evolving Summary Impairments Pain ROM Strength Balance Coordination Sensation Tone Cognition Bed Mobility Transfers Gait Activity Tolerance Assessment Summary PT eval received from ER doctor to assess safety with ambulation and possible d/c home. pt stated that she lives with her fiance but he will not be able to consistenly assist her. pt has increase pain on L anterior thigh affecting mobility. At this time, pt did not demonstrate ability to ambulate even with use of AD and will need a lot of assistance if pt's goes home. d/c home is not recommended at this time. will continue to assess safe d/c plan depending on pt's progress. Goals Bed Mobility Goal Independent Transfer Goal Independent Crutches Front Wheeled Walker Gait Goal Independent Crutches Front Wheel Walker Gait Distance 150 Days to Meet Goals 5 Frequency of Treatment Frequency Of Treatment Once a Day Treatment Plan Physical Therapy Treatment Plan Bed Mobility Training Transfer Training Gait Training Therapeutic Exercise Balance Retraining Discharge Planning Neuromuscular Re-ed Coordination Retraining Manual Therapy Other Recommendations and Next Treatment transfers, ambulation Focus Recommendations To Nursing Amount of Assist Needed 2 Person Assist Discharge Recommendations PT Discharge Recommendations Home with 24/7 Assist Home Health SNF Rehab Other Discharge Recommendations depending on progress: SNF vs home with 24/7/homehealth services Equipment Needed for Home Before FWW if not safe with crutches Discharge
--- NOTE | 2018-10-08 14:48 | PC.NURSE ---
Pt had difficulty transferring herself from bedside chair/commode to bed due to pain even RN's assist. Waiting for PT evaluation for ambulation for safety
--- NOTE | 2018-10-08 15:19 | PC.NURSE ---
Pt unable to take steps due to pain per PT evaluation. Pt assisted back to bed, pt screaming due to pain in L leg but settled down quickly after w/o movement.
[2018-10-08] MEDS: VANCOMYCIN 1,250 MG in SODIUM CHLORIDE 0.9% 250 ML IV (15:20)
[2018-10-08 15:55] LABS: C-Reactive Protein Quant 3.2 mg/dL (<1.0); Creatine Kinase 129 U/L (30-135)
[2018-10-08 15:56] LABS: Lactate (Lactic Acid) 0.8 mmol/L (0.7-2.1)
--- NOTE | 2018-10-08 16:28 | PC.NURSE ---
Hydromorphone held at this time as patient is sleeping and slightly somulant. Receiving nurse \ provider aware.
[2018-10-08] MEDS: HYDROMORPHONE 1 MG INJ 0.5 MG IV (17:04)
[2018-10-08] MEDS: HYDROMORPHONE 0.5 MG INJ IV (17:25)
--- NOTE | 2018-10-08 17:39 | P.HP_ITS ---
History of Present Illness Date Patient Seen: 10/08/18 Chief complaint: Leg Pain Narrative: The patient is a 38-year-old female with a history of polysubstance abuse currently on Suboxone for opiate withdrawal. She reports she was in her usual state of health until about 10 days ago. She was seen in the emergency department at that time and diagnosed with cellulitis. The patient states she got up to smoke a cigarette today and fell on her hip. She states her significant other would not bring her to the hospital and she called EMS to transport her to the hospital. In the emergency room the patient was screaming, writhing in pain. a CT angio of the abdomen and pelvis was obtained which was unremarkable. Patient also had ultrasound of the left lower extremity which was negative her white count was normal. The patient arrived to the floor X screaming in pain. attempted to examine her and she had significant swelling on the left hip. Review of the CT angio scalp films demonstrated a left femoral neck fracture. Patient History Medical History Opiate addiction (Acute) Family History Father Age: 62 Diabetes mellitus Hypertension High cholesterol Grandfather Heart disease Social History household members: significant other Smoking Status: Current every day smoker Family & Social History Family History Father Age: 62 Diabetes mellitus Hypertension High cholesterol Grandfather Heart disease Social History: household members significant other Safety & Behavioral: Feels Safe in Current Yes Environment Been Physically Hurt or No Threatened By a Person Tobacco & Substance use: Smoking Status Current every day smoker Substance Use Type does not use Meds Home Medications Medication Instructions Recorded Confirmed Type buprenorphine-naloxone [Suboxone] 16 mg SUBLINGUAL DAILY #0 06/15/17 10/08/18 History clonidine HCl 0.1 mg PO BID 10/08/18 10/08/18 History doxycycline hyclate 100 mg PO BID #20 tab 10/08/18 Rx hydroxyzine HCl 25 mg PO TID 10/08/18 10/08/18 History norethindrone-e.estradiol-iron 1 tab PO DAILY 10/08/18 10/08/18 History [Keisha 24 Fe] Allergies Allergy/AdvReac Type Severity Reaction Status Date / Time No Known Drug Allergies Allergy Verified 10/08/18 10:40 Review of Systems Review of Systems The patient denies any headache blurred vision or double vision. She denies any sore throat or cough. She has no nausea vomiting or diarrhea. She complains of left hip and left leg pain. she has lower extremity edema. she denies any shortness of breath. Further review of systems is difficult to obtain as the patient is writhing in pain. Exam Vital Signs (past 8 hours): - 10/08/18 10:30 10/08/18 11:24 10/08/18 14:17 Temperature 97.5 F L Pulse Rate 101 H 85 98 H Respiratory Rate 20 18 20 Blood Pressure 139/79 Blood Pressure [Right Arm] 148/85 H 130/96 H Pulse Oximetry 100 100 100 10/08/18 15:50 Temperature Pulse Rate 84 Respiratory Rate 18 Blood Pressure Blood Pressure [Right Arm] 120/73 Pulse Oximetry 99 Oxygen Delivery Method Room Air Narrative Exam Narrative: Discharge old ill-appearing female screaming in pain HEENT: Normocephalic atraumatic, oropharynx is clear neck is supple Lungs: Coarse breath sounds bilateral Cardiac exam: Tachycardic normal S1-S2 Abdomen: Soft and nontender, no hepatosplenomegaly Extremities: Bilateral pedal edema, left hip with tenderness over the hip joint and swelling. patient will not allow internal external rotation of the hip. She screams when any movement of the left leg is done Neuro exam: On obtain Objective Labs Result Diagrams: 10/08/18 10:15 10/08/18 10:15 Labs: Laboratory Results - last 24 hr X-ray of the hip and pelvis reveals a displaced left femoral neck fracture 10/08/18 10/08/18 10/08/18 10:15 10:15 10:15 WBC RBC Hgb Hct MCV MCH MCHC RDW Plt Count Neut % (Auto) Lymph % (Auto) [place] % (Auto) Eos % (Auto) Baso % (Auto) Neut # (Auto) Lymph # (Auto) [place] # (Auto) Eos # (Auto) Baso # (Auto) ESR 52 H Sodium Potassium Chloride Carbon Dioxide BUN Creatinine Estimated GFR BUN/Creatinine Ratio Glucose Lactate Calcium Total Creatine Kinase C-Reactive Protein 3.2 H Procalcitonin < 0.05 Urine Opiates Screen Ur Oxycodone Screen Urine Methadone Screen Ur Barbiturates Screen U Tricyclic Antidepress Ur Phencyclidine Scrn Ur Amphetamines Screen U Methamphetamines Scrn Ur MDMA Scrn (Ecstasy) U Benzodiazepines Scrn Urine Cocaine Screen U Marijuana (THC) Screen 10/08/18 10/08/18 10/08/18 10:15 10:15 10:15 WBC 7.6 RBC 4.62 Hgb 13.1 Hct 39.2 MCV 84.9 MCH 28.3 MCHC 33.4 RDW 13.1 Plt Count 430 H Neut % (Auto) 57.7 Lymph % (Auto) 29.6 [place] % (Auto) 8.8 Eos % (Auto) 3.1 Baso % (Auto) 0.8 Neut # (Auto) 4400 Lymph # (Auto) 2200 [place] # (Auto) 700 Eos # (Auto) 200 Baso # (Auto) 100 ESR Sodium 141 Potassium 3.3 L Chloride 100 Carbon Dioxide 29 BUN 16 Creatinine 0.60 Estimated GFR > 60.0 BUN/Creatinine Ratio 26.7 H Glucose 115 H Lactate Calcium 9.5 Total Creatine Kinase 129 C-Reactive Protein 3.2 H Procalcitonin Urine Opiates Screen Ur Oxycodone Screen Urine Methadone Screen Ur Barbiturates Screen U Tricyclic Antidepress Ur Phencyclidine Scrn Ur Amphetamines Screen U Methamphetamines Scrn Ur MDMA Scrn (Ecstasy) U Benzodiazepines Scrn Urine Cocaine Screen U Marijuana (THC) Screen 10/08/18 10/08/18 13:34 15:41 WBC RBC Hgb Hct MCV MCH MCHC RDW Plt Count Neut % (Auto) Lymph % (Auto) [place] % (Auto) Eos % (Auto) Baso % (Auto) Neut # (Auto) Lymph # (Auto) [place] # (Auto) Eos # (Auto) Baso # (Auto) ESR Sodium Potassium Chloride Carbon Dioxide BUN Creatinine Estimated GFR BUN/Creatinine Ratio Glucose Lactate 0.8 Calcium Total Creatine Kinase C-Reactive Protein Procalcitonin Urine Opiates Screen Negative Ur Oxycodone Screen Negative Urine Methadone Screen Negative Ur Barbiturates Screen Negative U Tricyclic Antidepress Negative Ur Phencyclidine Scrn Negative Ur Amphetamines Screen Positive H U Methamphetamines Scrn Positive H Ur MDMA Scrn (Ecstasy) Negative U Benzodiazepines Scrn Negative Urine Cocaine Screen Negative U Marijuana (THC) Screen Negative Assessment & Plan (1) Displaced fracture of left femoral neck: Problem details: Patient presents with a left femoral neck fracture. This is acute and present on admission. Orthopedic surgery consult pending. Anticipate patient will be taken to the OR for definitive treatment. She is NPO currently. Current visit: Yes Status: Acute (2) History of heroin abuse: Problem details: Patient is currently maintained on Suboxone and has not received her dose today. Current visit: No Status: None (3) Anxiety disorder: Problem details: Anxiety disorder, present on admission Current visit: No Status: None (4) Opioid withdrawal: Problem details: Opiate withdrawal, likely related to not receiving her Suboxone Current visit: No Status: Acute (5) Osteoporosis: Problem details: Hip fracture, secondary to osteoporosis secondary to fall. Would recommend vitamin-D and consideration of a bisphosphonate once she recovers from her surgery. Current visit: Yes Status: Acute
[2018-10-08] MEDS: KETOROLAC 30 MG/ML VIAL IV (18:10)
[2018-10-08] MEDS: LACTATED RINGERS 1,000 ML 42 ML IV ×2 (19:15→20:36)
--- NOTE | 2018-10-08 19:25 | PM.PREOP ---
Pre-operative Note Interval Note History & Physical reviewed/Exam performed by Physician: Yes Changes to H&P: No
[2018-10-08] MEDS: CEFAZOLIN VIAL 3 GM in SODIUM CHLORIDE 0.9% 100 ML 200 ML IV (19:43)
--- NOTE | 2018-10-08 19:57 | SUR.OPER ---
Head on pillow. Supine on fracture table with operative leg secured in traction. Other leg secured in padded boot with no traction in place. Right arm on padded arm board, Left Arm across chest, secured with tape over blanket.
[2018-10-08] MEDS: MIDAZOLAM 2 MG/2 ML VIAL IV (21:00)
--- NOTE | 2018-10-08 21:06 | PM.OP.1 ---
Operative Date/Time/Diagnoses Date of procedure: 10/08/18 Time of procedure: 21:07 Pre-op diagnosis: Displaced left femoral neck fracture Post-op diagnosis: same Procedure & Clinicians Procedure: Hold open reduction internal fixation with dynamic hip screw left basilar neck fracture (CPT code 82409) Same procedure as scheduled: Yes Indications: 38-year-old female with multiple medical problems primarily concerned with the substance abuse. Had been evaluated in the emergency room several days ago with history of probable cellulitis patient brought to the emergency room again this morning due to a fall and had marked increase left leg and hip pain. displaced femoral neck fracture ventrally noted. consultation was requested. We discussed the nature of condition, differential diagnosis, prognosis, and options. we discussed the fact that with the femoral neck fracture there is a fairly high chance this may proceed onto the need for hip replacement, particularly given the significant amount of displacement of the fracture, however given her young age refill it is best to fix the fracture at this point and informed consent is obtained. Click Yes if Unassisted: Yes Anesthesia Type: General Operative Notes Closure Type: primary Specimen(s): none sent Estimated Blood Loss (mL): 100 Blood products transfused: none Procedure in detail: Patient brought to the operating room and after administration of IV antibiotics and satisfactory and adduction of general anesthetic patient supine on the fracture table with both legs well padded in boots. The right leg was dropped in an extended position slightly externally rotated. The left hip and lower extremity were prepped and draped in usual sterile fashion. longitudinal incision created just distal to the greater trochanter and carried sharply through the skin and subcutaneous tissues down to the fascia court. Fascia court then incised longitudinally, and the vastus lateralis fascia was incised longitudinally with the muscle belly retracted anteriorly and the lateral cortex of the femur approached. Nearly anatomical reduction was achieved prior to prepping and draping and so the 135 degree guide was placed over the lateral cortex of the femur and a guide pin placed in the desired location with excellent position obtained this was then measured for depth and drilled with a triple Reamer. The hip screw was then inserted and despite use of the rotation pins superiorly there was fairly significant rotation of the femoral neck and head fragment. The hip screw was very well fixed in the femoral head, and using a combination of traction, compression, rotation, and replacement of the derotation pins, the reduction was improved significantly but not entirely anatomical. Because the hip screws very well fixed in the femoral head, and as well as excellent alignment in the lateral view I decided to accept the reduction and place the side plate which was fixed to the diaphysis of the femur with 4 bicortical screws. The compression screw was then inserted into the hip lag screw and tightened which provided further compression of the fracture. intraoperative films were satisfactory with maintenance of the final reduction and good placement of the hardware. The wound was copiously irrigated in the vastus lateralis fascia was closed with running 2 0 Vicryl, the fascia court was closed with running 0 Vicryl, the subcutaneous tissues were closed in 2 layers of 0 Vicryl and 2 0 Vicryl, and the skin was closed with naeem. Sterile dressings were applied anesthetic was terminated and patient was taken to postanesthetic recovery in satisfactory condition. Complications: none Condition: stable Disposition: PACU Plan for aftercare: Patient will be toe-touch weight-bearing for the initial 6 weeks postoperative and will be seen in clinic for wound check and staple removal with repeat x-rays in 2 weeks
--- NOTE | 2018-10-08 21:18 | P.CONS_ITS ---
History of Present Illness Date Patient Seen: 10/08/18 Time Patient Seen: 21:15 Chief complaint: Leg Pain Reason for consult: Left hip fracture Requesting provider: Akhil Christiansen Narrative: Patient is a 38-year-old female with severe substance abuse issues and unclear history but it sounds as if she had a fall the morning of admission with marked increased left leg pain. Questionable prior history of cellulitis 7-10 days recently. The patient has very severe pain and during the course of workup was noted to have a displaced femoral neck fracture in consultation was requested. [facility] Medical History Opiate addiction (Acute) Family History Father Age: 62 Diabetes mellitus Hypertension High cholesterol Grandfather Heart disease Social History household members: significant other Smoking Status: Current every day smoker alcohol intake: never Family History Father Age: 62 Diabetes mellitus Hypertension High cholesterol Grandfather Heart disease Social History household members: significant other Smoking Status: Current every day smoker alcohol intake: never Meds Home Medications Medication Instructions Recorded Confirmed Type buprenorphine-naloxone [Suboxone] 16 mg SUBLINGUAL DAILY #0 06/15/17 10/08/18 History clonidine HCl 0.1 mg PO BID 10/08/18 10/08/18 History doxycycline hyclate 100 mg PO BID #20 tab 10/08/18 Rx hydroxyzine HCl 25 mg PO TID 10/08/18 10/08/18 History norethindrone-e.estradiol-iron 1 tab PO DAILY 10/08/18 10/08/18 History [Keisha 24 Fe] Allergies Allergy/AdvReac Type Severity Reaction Status Date / Time No Known Drug Allergies Allergy Verified 10/08/18 10:40 Review of Systems Review of Systems All systems reviewed & are unremarkable except as noted in HPI and below Exam Vital Signs (past 8 hours): - 10/08/18 14:17 10/08/18 15:50 10/08/18 16:30 Temperature 98.2 F Pulse Rate 98 H 84 130 H Respiratory Rate 20 18 22 Blood Pressure 163/102 H Blood Pressure [Right Arm] 130/96 H 120/73 Pulse Oximetry 100 99 98 10/08/18 19:15 Temperature 99.4 F Pulse Rate 86 Respiratory Rate 18 Blood Pressure 146/89 H Blood Pressure [Right Arm] Pulse Oximetry 100 Oxygen Delivery Method Room Air Narrative Exam Narrative: The patient is somewhat somnolent apparently due to an administration of pain medication. She is arousable and awakened. Vital signs are stable the patient is afebrile. HEENT normocephalic atraumatic. Lungs clear auscultation, heart regular rate rhythm. Abdomen benign. Lower extremities mild diffuse edema but no significant erythema. There is pain with any movement at all of the left leg and moderate tenderness over the left hip. neurovascular examination is grossly intact Objective Labs Result Diagrams: 10/08/18 10:15 10/08/18 10:15 Labs: Laboratory Results - last 24 hr 10/08/18 10/08/18 10/08/18 10:15 10:15 10:15 WBC RBC Hgb Hct MCV MCH MCHC RDW Plt Count Neut % (Auto) Lymph % (Auto) [place] % (Auto) Eos % (Auto) Baso % (Auto) Neut # (Auto) Lymph # (Auto) [place] # (Auto) Eos # (Auto) Baso # (Auto) ESR 52 H Sodium Potassium Chloride Carbon Dioxide BUN Creatinine Estimated GFR BUN/Creatinine Ratio Glucose Lactate Calcium Total Creatine Kinase C-Reactive Protein 3.2 H Procalcitonin < 0.05 Urine Opiates Screen Ur Oxycodone Screen Urine Methadone Screen Ur Barbiturates Screen U Tricyclic Antidepress Ur Phencyclidine Scrn Ur Amphetamines Screen U Methamphetamines Scrn Ur MDMA Scrn (Ecstasy) U Benzodiazepines Scrn Urine Cocaine Screen U Marijuana (THC) Screen 10/08/18 10/08/18 10/08/18 10:15 10:15 10:15 WBC 7.6 RBC 4.62 Hgb 13.1 Hct 39.2 MCV 84.9 MCH 28.3 MCHC 33.4 RDW 13.1 Plt Count 430 H Neut % (Auto) 57.7 Lymph % (Auto) 29.6 [place] % (Auto) 8.8 Eos % (Auto) 3.1 Baso % (Auto) 0.8 Neut # (Auto) 4400 Lymph # (Auto) 2200 [place] # (Auto) 700 Eos # (Auto) 200 Baso # (Auto) 100 ESR Sodium 141 Potassium 3.3 L Chloride 100 Carbon Dioxide 29 BUN 16 Creatinine 0.60 Estimated GFR > 60.0 BUN/Creatinine Ratio 26.7 H Glucose 115 H Lactate Calcium 9.5 Total Creatine Kinase 129 C-Reactive Protein 3.2 H Procalcitonin Urine Opiates Screen Ur Oxycodone Screen Urine Methadone Screen Ur Barbiturates Screen U Tricyclic Antidepress Ur Phencyclidine Scrn Ur Amphetamines Screen U Methamphetamines Scrn Ur MDMA Scrn (Ecstasy) U Benzodiazepines Scrn Urine Cocaine Screen U Marijuana (THC) Screen 10/08/18 10/08/18 13:34 15:41 WBC RBC Hgb Hct MCV MCH MCHC RDW Plt Count Neut % (Auto) Lymph % (Auto) [place] % (Auto) Eos % (Auto) Baso % (Auto) Neut # (Auto) Lymph # (Auto) [place] # (Auto) Eos # (Auto) Baso # (Auto) ESR Sodium Potassium Chloride Carbon Dioxide BUN Creatinine Estimated GFR BUN/Creatinine Ratio Glucose Lactate 0.8 Calcium Total Creatine Kinase C-Reactive Protein Procalcitonin Urine Opiates Screen Negative Ur Oxycodone Screen Negative Urine Methadone Screen Negative Ur Barbiturates Screen Negative U Tricyclic Antidepress Negative Ur Phencyclidine Scrn Negative Ur Amphetamines Screen Positive H U Methamphetamines Scrn Positive H Ur MDMA Scrn (Ecstasy) Negative U Benzodiazepines Scrn Negative Urine Cocaine Screen Negative U Marijuana (THC) Screen Negative Assessment & Plan Assessment & Plan narrative: The patient has a displaced femoral neck fracture at the base of the femoral neck. we discussed the nature of condition, differential diagnosis, prognosis, and options. Patient may well need a total hip or unipolar arthroplasty, but given her young age reasonable to attempt fixation of this fracture despite the severe displacement. The patient was also accompanied by her mother understands and agrees and gives informed consent to proceed with surgical fixation.
[2018-10-08] MEDS: LACTATED RINGERS 1,000 ML 125 ML IV (22:07)
[2018-10-09] VITALS (7 sets, daily range): BP systolic 117–173; BP diastolic 70–97; PULSE 88–99; RESP 18–21; TEMP 36.6–37.1; O2SAT 94–100
--- NOTE | 2018-10-09 00:10 | PC.NURSE ---
2300- Pt admit for hip pain; L hip fracture noted on xray. Pt had plate placed in surgery; POD #0 as she returned to the floor around 2150. Edema noted on L foot; non-pitting at this time. L leg CMS intact, pulses palpable. Surgical site covered w/ gauze & tegaderm; shadow drainage noted. Cont SpO2 in place; O2 sats stable. LR running as ordered into peripheral IV; pt drowsy however arouses to voice. Keeping a close eye on urine output as pt had to be cathed (in-n-out) down in PACU. 0250- PO oxycodone given for pt screaming out in pain. Sleepy from surgical meds however slightly HTNsive & tachy. O2 sats stable. PO pain medication swallowed w/o difficulty. Pt A+Ox3. Pt used bedpan w/ 500cc urine out. 0600- Pt remains comfortable in bed; IV fluids running. Used bedpan w/ another 600 cc urine out.
[2018-10-09] MEDS: hydrOXYzine pamoate 25 MG CAPSULE PO ×3 (00:31→19:22)
[2018-10-09] MEDS: OXYCODONE IR 5 MG TABLET PO ×5 (02:49→22:00)
[2018-10-09] MEDS: CEFAZOLIN 2 GM/100 ML FROZ.PIGGY IV ×2 (04:31→11:47)
[2018-10-09 05:43] LABS: Hematocrit 33.4 % (36-46); Hemoglobin 11.3 g/dL (12.0-16.0)
[2018-10-09] MEDS: LACTATED RINGERS 1,000 ML 125 ML IV (06:39)
[2018-10-09] MEDS: ACETAMINOPHEN 325 MG TABLET 975 MG PO ×3 (08:24→22:01)
[2018-10-09] MEDS: ASPIRIN EC 81 MG TABLET PO ×2 (08:50→22:01)
[2018-10-09] MEDS: cloNIDine 0.1 MG TABLET PO ×2 (08:50→22:02)
--- NOTE | 2018-10-09 09:30 | PT.IPTN ---
Current Diagnoses Opioid dependence with withdrawal (10/08/18) Anxiety disorder, unspecified (10/08/18) Age-related osteoporosis without current pathological fracture (10/08/18) Fracture of unspecified part of neck of left femur, initial encounter for closed fracture (10/08/18) Personal history of other specified conditions (10/08/18) Surgery Performed Operation Date: 10/08/18 19:10 Actual Procedures p ORIF Hip DHS - Momo Ayala MD Physical Therapy Treatment Note M2 PT-IP Current Condition Start: 10/08/18 15:51 Freq: Status: Active Protocol: Document 10/08/18 14:45 AB (Rec: 10/08/18 16:22 AB [id number]) Physical Therapy Current Condition Current Condition Evaluation Date 10/08/18 Treatment Diagnosis L leg pain; difficulty in walking Onset Date 10/08/18 Precautions Other Precautions per nurse: possible LLE cellulitis M3 PT-IP Subjective Start: 10/08/18 15:51 Freq: Status: Active Protocol: Document 10/09/18 14:00 AB (Rec: 10/09/18 15:20 AB [id number]) Subjective Physical Therapy Visit Type Type Administrative Note Notes Pt was evaluated in the ER but pt found not safe to go home. Pt ended up staying in the hospital and found to have L femoral fx. cancelled initial PT and ordered new PT eval s/p hip surgery. Will d/ c initial eval and will complete eval under new diagnosis and current functional level s/p hip surgery. M7 PT-IP Assessment and Plan Start: 10/08/18 15:51 Freq: Status: Active Protocol: Document 10/09/18 14:00 AB (Rec: 10/09/18 15:16 AB [id number]) PT Summary Assessment and Plan Frequency of Treatment Frequency Of Treatment Discharge
--- NOTE | 2018-10-09 09:49 | PM.PNPO.1 ---
Subjective Date Patient Seen: 10/09/18 Time Patient Seen: 09:50 Interval history: Patient is sedated this morning. Did and she states she does not know what her pain level is. Does not answer any further questions. Exam Vital Signs (past 8 hours): - 10/09/18 04:00 Temperature 98.7 F Pulse Rate 99 H Respiratory Rate 18 Blood Pressure 132/78 Pulse Oximetry 99 Oxygen Delivery Method Room Air Oxygen Flow Rate 0 Narrative Exam Narrative: 38-year-old female resting in bed in no apparent distress. sensation grossly intact to light touch distal left lower extremity. Motor function is intact. Her left hip dressing is clean, dry and intact. Objective Labs Result Diagrams: 10/09/18 05:18 10/08/18 10:15 Labs: Laboratory Results - last 24 hr 10/08/18 10/08/18 10/08/18 10:15 10:15 10:15 WBC RBC Hgb Hct MCV MCH MCHC RDW Plt Count Neut % (Auto) Lymph % (Auto) Williamson % (Auto) Eos % (Auto) Baso % (Auto) Neut # (Auto) Lymph # (Auto) Williamson # (Auto) Eos # (Auto) Baso # (Auto) ESR 52 H Sodium Potassium Chloride Carbon Dioxide BUN Creatinine Estimated GFR BUN/Creatinine Ratio Glucose Lactate Calcium Total Creatine Kinase C-Reactive Protein 3.2 H Procalcitonin < 0.05 Urine Opiates Screen Ur Oxycodone Screen Urine Methadone Screen Ur Barbiturates Screen U Tricyclic Antidepress Ur Phencyclidine Scrn Ur Amphetamines Screen U Methamphetamines Scrn Ur MDMA Scrn (Ecstasy) U Benzodiazepines Scrn Urine Cocaine Screen U Marijuana (THC) Screen 10/08/18 10/08/18 10/08/18 10:15 10:15 10:15 WBC 7.6 RBC 4.62 Hgb 13.1 Hct 39.2 MCV 84.9 MCH 28.3 MCHC 33.4 RDW 13.1 Plt Count 430 H Neut % (Auto) 57.7 Lymph % (Auto) 29.6 Williamson % (Auto) 8.8 Eos % (Auto) 3.1 Baso % (Auto) 0.8 Neut # (Auto) 4400 Lymph # (Auto) 2200 Williamson # (Auto) 700 Eos # (Auto) 200 Baso # (Auto) 100 ESR Sodium 141 Potassium 3.3 L Chloride 100 Carbon Dioxide 29 BUN 16 Creatinine 0.60 Estimated GFR > 60.0 BUN/Creatinine Ratio 26.7 H Glucose 115 H Lactate Calcium 9.5 Total Creatine Kinase 129 C-Reactive Protein 3.2 H Procalcitonin Urine Opiates Screen Ur Oxycodone Screen Urine Methadone Screen Ur Barbiturates Screen U Tricyclic Antidepress Ur Phencyclidine Scrn Ur Amphetamines Screen U Methamphetamines Scrn Ur MDMA Scrn (Ecstasy) U Benzodiazepines Scrn Urine Cocaine Screen U Marijuana (THC) Screen 10/08/18 10/08/18 10/09/18 13:34 15:41 05:18 WBC RBC Hgb 11.3 L Hct 33.4 L MCV MCH MCHC RDW Plt Count Neut % (Auto) Lymph % (Auto) Williamson % (Auto) Eos % (Auto) Baso % (Auto) Neut # (Auto) Lymph # (Auto) Williamson # (Auto) Eos # (Auto) Baso # (Auto) ESR Sodium Potassium Chloride Carbon Dioxide BUN Creatinine Estimated GFR BUN/Creatinine Ratio Glucose Lactate 0.8 Calcium Total Creatine Kinase C-Reactive Protein Procalcitonin Urine Opiates Screen Negative Ur Oxycodone Screen Negative Urine Methadone Screen Negative Ur Barbiturates Screen Negative U Tricyclic Antidepress Negative Ur Phencyclidine Scrn Negative Ur Amphetamines Screen Positive H U Methamphetamines Scrn Positive H Ur MDMA Scrn (Ecstasy) Negative U Benzodiazepines Scrn Negative Urine Cocaine Screen Negative U Marijuana (THC) Screen Negative Assessment & Plan Post-op Postoperative Procedures Operation Date: 10/08/18 19:10 Actual Procedures Side Surgeon p ORIF Hip DHS Momo Ayala MD Postop day 1. Status post open reduction internal fixation with dynamic hip screw left basilar neck fracture. patient will be toe-touch weight-bearing for the initial 6 weeks postop. Should be seen in clinic for wound check and staple removal with repeat x-rays in 2 weeks. Quality VTE Deep Vein Thrombosis/Pulmonary Embolism Present on Admission: No
--- NOTE | 2018-10-09 11:02 | PC.NURSE ---
0900-Pt screaming out in pain. Used the bed balderas and still yelling out in discomfort. Pts dressing to L.hip is cdi. She has her l.leg bent at knee. Pt is an active meth user. When she is awake she is jittery and flails her body all around. Given Tylenol, 5mg of oxycodone and 1 routine vistaril for discomfort and pt is sleeping soundly. She is arousable. PT in room and she would not respond to patient. Not sure if she was in a deep sleep or ignoring staff. Pts respirations are 16 and strong. Comfortable at this time.
--- NOTE | 2018-10-09 11:26 | PT.IPTN ---
Current Diagnoses Opioid dependence with withdrawal (10/08/18) Anxiety disorder, unspecified (10/08/18) Age-related osteoporosis without current pathological fracture (10/08/18) Fracture of unspecified part of neck of left femur, initial encounter for closed fracture (10/08/18) Personal history of other specified conditions (10/08/18) Surgery Performed Operation Date: 10/08/18 19:10 Actual Procedures p ORIF Hip DHS - Momo Ayala MD Physical Therapy Treatment Note M2 PT-IP Current Condition Start: 10/08/18 15:51 Freq: Status: Active Protocol: Document 10/08/18 14:45 AB (Rec: 10/08/18 16:22 AB [id number]) Physical Therapy Current Condition Current Condition Evaluation Date 10/08/18 Treatment Diagnosis L leg pain; difficulty in walking Onset Date 10/08/18 Precautions Other Precautions per nurse: possible LLE cellulitis M3 PT-IP Subjective Start: 10/08/18 15:51 Freq: Status: Active Protocol: Document 10/09/18 11:24 AB (Rec: 10/09/18 11:26 AB [id number]) Subjective Physical Therapy Visit Type Type Patient Refusal Notes checked on pt and pt is asleep . tried to wake pt up but not successful. checked on pt again 2 more times. pt answers inconsistently to questions but keeps eyes close . c/o LLE pain with movement and stated Let me sleep. pt has eyes closed throughout visit and not participating with PT. informed nurse. will check back later today.
--- NOTE | 2018-10-09 11:49 | PM.PN.1 ---
Subjective Date Patient Seen: 10/09/18 Interval history: Events reviewed patient seen and examined. She is sleeping this morning. Although she is easily arousable. She does not appear to be in pain she has no complaints of pain. Patient underwent ORIF with dynamic screw placement for femoral neck fracture yesterday. Her procedure was successful. Exam Vital Signs (past 8 hours): - 10/09/18 04:00 10/09/18 09:00 Temperature 98.7 F 98.3 F Pulse Rate 99 H 96 H Respiratory Rate 18 18 Blood Pressure 132/78 148/79 H Pulse Oximetry 99 94 Oxygen Delivery Method Room Air Oxygen Flow Rate 0 Narrative Exam Narrative: Sleeping female who appears to be comfortable Lungs: Clear to auscultation Cardiac exam: Regular rate and rhythm normal S1-S2 with a 2/6 systolic ejection murmur Abdomen: Soft nontender nondistended Extremities: Left hip with dressing in place Objective Labs Result Diagrams: 10/09/18 05:18 10/08/18 10:15 Labs: Laboratory Results - last 24 hr 10/08/18 10/08/18 10/08/18 10:15 10:15 13:34 Hgb Hct Sodium 141 Potassium 3.3 L Chloride 100 Carbon Dioxide 29 BUN 16 Creatinine 0.60 Estimated GFR > 60.0 BUN/Creatinine Ratio 26.7 H Glucose 115 H Lactate Calcium 9.5 Total Creatine Kinase 129 C-Reactive Protein 3.2 H Urine Opiates Screen Negative Ur Oxycodone Screen Negative Urine Methadone Screen Negative Ur Barbiturates Screen Negative U Tricyclic Antidepress Negative Ur Phencyclidine Scrn Negative Ur Amphetamines Screen Positive H U Methamphetamines Scrn Positive H Ur MDMA Scrn (Ecstasy) Negative U Benzodiazepines Scrn Negative Urine Cocaine Screen Negative U Marijuana (THC) Screen Negative 10/08/18 10/09/18 15:41 05:18 Hgb 11.3 L Hct 33.4 L Sodium Potassium Chloride Carbon Dioxide BUN Creatinine Estimated GFR BUN/Creatinine Ratio Glucose Lactate 0.8 Calcium Total Creatine Kinase C-Reactive Protein Urine Opiates Screen Ur Oxycodone Screen Urine Methadone Screen Ur Barbiturates Screen U Tricyclic Antidepress Ur Phencyclidine Scrn Ur Amphetamines Screen U Methamphetamines Scrn Ur MDMA Scrn (Ecstasy) U Benzodiazepines Scrn Urine Cocaine Screen U Marijuana (THC) Screen Assessment & Plan (1) Osteoporosis: Problem details: Hip fracture, secondary to osteoporosis secondary to fall. Would recommend vitamin-D and consideration of a bisphosphonate once she recovers from her surgery. Patient is status post ORIF. Will continue PT OT as recommended by Orthopedic surgery. Current visit: Yes Status: Acute (2) Displaced fracture of left femoral neck: Problem details: Patient presents with a left femoral neck fracture. This is acute and present on admission. Orthopedic surgery consult pending. Anticipate patient will be taken to the OR for definitive treatment. She is NPO currently. Current visit: Yes Status: Acute (3) Anxiety disorder: Problem details: Anxiety disorder, present on admission Current visit: No Status: None (4) History of heroin abuse: Problem details: Patient is currently maintained on Suboxone and has not received her dose today. Resume Suboxone as an outpatient Current visit: No Status: None Quality VTE Deep Vein Thrombosis/Pulmonary Embolism Present on Admission: No
--- NOTE | 2018-10-09 13:23 | OT.IP.TRT ---
Current Diagnoses Opioid dependence with withdrawal (10/08/18) Anxiety disorder, unspecified (10/08/18) Age-related osteoporosis without current pathological fracture (10/08/18) Fracture of unspecified part of neck of left femur, initial encounter for closed fracture (10/08/18) Personal history of other specified conditions (10/08/18) Surgery Performed Operation Date: 10/08/18 19:10 Actual Procedures p ORIF Hip DHS - Momo Ayala MD Occupational Therapy Treatment Note M3 OT- IP Subjective and Pain Start: 10/09/18 13:21 Freq: Status: Active Protocol: Document 10/09/18 13:22 CGR (Rec: 10/09/18 13:23 CGR [id number]) OT- Subjective Occupational Therapy Visit Type Type Administrative Note Notes Attempted to see pt for OT eval. Pt lethargic and unable to stay awake to answer simple questions. Will hold at this time and continue to follow.
--- NOTE | 2018-10-09 14:08 | PT.IIE ---
Current Diagnoses Opioid dependence with withdrawal (10/08/18) Anxiety disorder, unspecified (10/08/18) Age-related osteoporosis without current pathological fracture (10/08/18) Fracture of unspecified part of neck of left femur, initial encounter for closed fracture (10/08/18) Personal history of other specified conditions (10/08/18) Surgery Performed Operation Date: 10/08/18 19:10 Actual Procedures p ORIF Hip DHS - Momo Ayala MD Medical History (Last Reviewed 10/08/18 @ 21:16 by Momo Ayala MD) Opiate addiction (Acute) Physical Therapy Inpatient Evaluation/Re-Eval M1 PT/OT-IP Prior Functional Status Start: 10/08/18 15:51 Freq: Status: Active Protocol: Document 10/09/18 14:08 AB (Rec: 10/09/18 15:51 AB [id number]) Medical Review Prior Functional Status Medical History Reviewed Yes Communication able to make needs known Mobility and Gait pt stated that she is independent with all mobilities and ambulation without AD Social History Household Members significant other children Living Arrangements House Number of Floors (Floors) One Floor Number of Stairs To Enter/Railing? 1 step to enter Home Environment Standard Height Toilet Tub/Shower Home Equipment Crutches Grab Bars In Shower Employment Status Unemployed Additional Social History Comment stated that SO works and she has small kids at home M2 PT-IP Current Condition Start: 10/08/18 15:51 Freq: Status: Active Protocol: Document 10/09/18 14:08 AB (Rec: 10/09/18 15:51 AB [id number]) Physical Therapy Current Condition Current Condition Evaluation Date 10/09/18 Treatment Diagnosis L displaced femoral neck fx s/ p L hip ORIF; difficulty in walking Onset Date 10/08/18 Weight Bearing Status Weight Bearing Status Touch Down Weight Bearing Allowed Weight Bearing Amount (enter % LLE: TTWB or #) (%) M3 PT-IP Subjective Start: 10/08/18 15:51 Freq: Status: Active Protocol: Document 10/09/18 14:08 AB (Rec: 10/09/18 15:51 AB [id number]) Subjective Physical Therapy Visit Type Type Initial Evaluation Visit Start Time 14:08 Visit Stop Time 14:45 Total Visit Minutes 37 Number of FREIGHT ROUTER Visits 0 Physical Therapy Visit Comments Patient Comments pt agreed to get up Therapy Pain Assessment Pain When Pain Assessed At Rest Pain Present Pain Present Pain Reported Location Left Upper Leg Intensity 4 Scale Used Numeric (1 - 10) Pain Management Techniques Apply Cold Re-positioning Timing of Activity with Medications M4 PT-IP Mobility and Gait Start: 10/08/18 15:51 Freq: Status: Active Protocol: Document 10/09/18 14:08 AB (Rec: 10/09/18 15:51 AB [id number]) PT-Bed Mobility Assessment Supine to Sit Supine to Sit Moderate Assistance 1 Person Assistance Scooting Scooting to Edge of Bed Minimal Assistance PT-Transfer Assessment Sit to and From Stand Sit to and from Stand Minimal Assistance Equipment Transfer Assistive Device Gait Belt Front Wheeled Walker Orthotic/Prosthetic Devices or Brace: No Transfers Transfer Destination Chair Transfer Technique Stand Step Pivot Transfer Ability Level of Assist Minimal Assistance 1 Person Assistance Use of Upper Extremities Comments Mobility Comments pt required increase time to complete tasks. pt was able to take steps to get to the chair using FWW for support and maintain NWB during transfer but with difficulty maintain weightbearing towards end of transfer with descent to the chair. opted to do NWB at this time for safety and if pt able to maintain and follow weightbearing restriction. educated pt on TTWB and informed that if unable to maintain TTWB it is then safer for pt to observe NWB on LLE for safety. Pt agreed. Gait Assessment Gait Gait Assistance Required: Minimum Assistance Distance (Feet) 2 Able to Maintain Weight Bearing Status Yes During Gait Assistive Devices Assistive Device Gait Belt Front Wheeled Walker Orthotic/Prosthetic Devices or Brace: No Factors Limiting Gait Function Factors Limiting Gait Function Decreased Activity Tolerance Decreased Strength Limited Range of Motion Pain Poor Balance Comments Gait Comments pt able to take steps using FWW from bed to chair min A. PT-Balance Assessment Sitting Balance and Reactions Static Sitting Balance Ability Good Dynamic Sitting Balance Ability Good Standing Balance and Reactions Static Standing Balance Ability Fair Dynamic Standing Balance Ability Poor Device Used FWW M5 PT-IP Objective Assessments Start: 10/08/18 15:51 Freq: Status: Active Protocol: Document 10/09/18 14:08 AB (Rec: 10/09/18 15:51 AB [id number]) Orientation Orientation/Cognition Level of Alertness Alert Orientation Name Age Place Situation Gross Range of Motion Lower Extremity ROM Assessment Left Impaired Impairments knee flexor tightness noted Strength Lower Extremity Strength Assessment Left Impaired Knee 3-/5 M6 PT-IP Treatment Start: 10/08/18 15:51 Freq: Status: Active Protocol: Document 10/09/18 14:08 AB (Rec: 10/09/18 15:51 AB [id number]) Physical Therapy Treatment Exercises Exercises Heel Slides Education Education Provided Precautions Weight Bearing Status Post-Op Packet Safety M7 PT-IP Assessment and Plan Start: 10/08/18 15:51 Freq: Status: Active Protocol: Document 10/09/18 14:08 AB (Rec: 10/09/18 15:51 AB [id number]) PT Summary Assessment and Plan Potential Rehabilitation Potential Good Status of Condition at Evaluation Evolving Summary Impairments Pain ROM Strength Balance Coordination Sensation Tone Cognition Bed Mobility Transfers Gait Activity Tolerance Assessment Summary pt requiring one person assist with mobility and has limited assistance at home. d/c plan depending on progress but at this time, pt will require SNF rehab to improve mobility and independence prior to d/c home. If pt progress well, pt will need homehealth PT, w/c for long distance mobility and a FWW to assist with transfers and mobility indoors . Goals Bed Mobility Goal Standby Assistance Transfer Goal Standby Assistance Front Wheeled Walker Gait Goal Standby Assistance Front Wheel Walker Gait Distance 50 Other Goals up/down one step using FWW CGA Days to Meet Goals 5 Frequency of Treatment Frequency Of Treatment Twice a Day Treatment Plan Physical Therapy Treatment Plan Bed Mobility Training Transfer Training Gait Training Therapeutic Exercise Balance Retraining Post Op Education Discharge Planning Hot or Cold Pack Neuromuscular Re-ed Coordination Retraining Manual Therapy Other Recommendations and Next Treatment transfers, ambulation Focus Recommendations To Nursing Amount of Assist Needed 1 Person Assist Discharge Recommendations PT Discharge Recommendations SNF Rehab Equipment Needed for Home Before if pt progress and is able to Discharge go home: will need w/c for long distance mobility and FWW for transfers/short distance mobility
--- NOTE | 2018-10-09 15:53 | CM.SWNOTE ---
Social Work/ Initial DCP Assessment Note: Pt is a 38 yo, currently living in [place]. Pt presents after a GLF and subsequent fx , requiring hip surgery by Dr Ayala. PCP: Radha Capellan Payer: Jorge. Reviewed chart. Pt w/ anxiety disorder, h/o polysubstance abuse, currently on suboxone and positive for Meth per UA done 4.06.16. Pt is POD#1 from her hip surgery. PT currently recommending SNF vs home w/walker vs w/c for longer distance. Pt plans to return home. Met w/pt this afternoon, explained SW role. Pt is teary throughout our conversation. She is sitting up in chair, makes good eye contact. She does not complain of pain during our visit. Pt lives w/marciano Harding P# [phone], her 5 yo Peter and 2 yo Silvio, unsure if Meaghan is father of these children. Pt is not working at this time, Meaghan works multimedia coordinator as a contractor. Peter attends pre- from 12-3 daily and Silvio is home w/pt multimedia coordinator. Pt's 13 yo has been living w/ pt's Mom and Dad, Juanita and Lucas Wiley P# [phone], since Feb 2018. Pt goes to [facility] in [facility] weekly for Suboxone, she states I don't want to be on it for the rest of my life and explains they are tapering her dose slowly. Pt last used heroin approx a year 1/2 ago, before that time she used heroin for approx 6 months total. Pt admits to using Meth two weeks ago, and no regular use before that time. Pt states this is disappointing because she has had clean UAs for a long time up until now. Pt understands there will be a lengthy recovery time after this surgery. She is the most concerned about her 5 and 2 yo and trying to arrange care for them during recovery. Especially Silvio, her two year old, who is less independent than Peter. Local supports include pt's parents and Meaghan's mom, who is helping take care of 5 and 2 yo now. Meaghan's mom can help but also cares for her other grandchildren in [place] Tues-Thu every week. Meaghan is able to be home some but not multimedia coordinator (?) Pt says she will work out help needed once home and she can sit down w/family to get schedule set. Grandparents can help w/transportation for the kids and for pt to get to/from Dr phipps. Pt very tearful and admits she has been alone with her thoughts while admitted. She admits life has been very difficult this month, she and marciano currently do not have a vehicle and do not have housing. They have enough money for food and hotel rooms. Pt eager to get her kids settled somewhere else. Encouraged pt to consider looking outside of [place] for rentals, once they secure transportation, pt agreeable. Pt denies needing any resources from this WINDOW CASER. She admits to prior involvement w/ CPS open and closed cases. She states CPS was not very helpful to her. She states there are counseling resources through [facility] and she hasn't used them. This WINDOW CASER encouraged pt to consider counseling. Hopefully WINDOW CASER team can follow closely and offer counseling resources again closer to [place] (?) and other resources that may be helpful. Placed call to CPS w/e line P# , gave report based on the knowledge of prior CPS involvement, Meth+ UA and 5 and 2 yo in household. Left name and contact information w/intake in case further information is requested. Following closely for coordination of safe DCP and assessment of further MH/CD needs or resources. GIORGIO Guzmán
[2018-10-09] MEDS: CALCIUM CARB/VIT D3 500/200 TABLET 1 EACH PO (16:51)
[2018-10-09] MEDS: NICOTINE 21 MG PATCH TOP (19:33)
--- NOTE | 2018-10-09 22:23 | PC.NURSE ---
carole shift- assumed care of pt from outgoing shift at 1500 this day. Pt asleep at this time. arouses to voice. groggy. complains of pain. given tylenol per MAR. given prns as requested. pt did take a shower. sat in commode. pt 1Pa with FWW. pt complained of much pain with ambulation. Pt reminded to toe touch with left leg. pt didnt want a gown, she wanted to wear her robe. Pt used bedpan to void, refused to use BSC. Pt bp stable. given meds. Pt uses call ricci. will continue to monitor pt for safety.
[2018-10-10 00:42] VITALS: BP 120/59; PULSE 83; RESP 16; TEMP 37; O2SAT 98
[2018-10-10 04:00] VITALS: BP 113/73; PULSE 92; RESP 16; TEMP 36.4; O2SAT 99
[2018-10-10] MEDS: OXYCODONE IR 5 MG TABLET PO ×5 (04:01→18:41)
[2018-10-10] MEDS: ACETAMINOPHEN 325 MG TABLET 975 MG PO ×3 (07:43→20:02)
[2018-10-10 08:00] VITALS: BP 119/68; PULSE 95; RESP 17; TEMP 37.2; O2SAT 99
[2018-10-10] MEDS: ASPIRIN EC 81 MG TABLET PO ×2 (08:52→20:03)
[2018-10-10] MEDS: CALCIUM CARB/VIT D3 500/200 TABLET 1 EACH PO ×2 (08:52→18:29)
[2018-10-10] MEDS: cloNIDine 0.1 MG TABLET PO ×2 (08:52→20:03)
[2018-10-10] MEDS: NICOTINE 21 MG PATCH TOP (08:54)
[2018-10-10] MEDS: hydrOXYzine pamoate 25 MG CAPSULE PO ×3 (08:54→19:13)
--- NOTE | 2018-10-10 10:02 | P.PN_ITS ---
Subjective Date Patient Seen: 10/10/18 Time Patient Seen: 10:02 Interval history: She is seen today to follow up the opiate dependency treatment with Suboxone and the left hip fracture. She mentions that her left leg was swollen before the fracture. There is no swelling now, today. There is no fever. Orthopedics is following. Exam Vital Signs (past 8 hours): - 10/10/18 04:00 10/10/18 08:00 Temperature 97.6 F 98.9 F Pulse Rate 92 H 95 H Respiratory Rate 16 17 Blood Pressure 113/73 119/68 Pulse Oximetry 99 99 Oxygen Delivery Method Room Air Oxygen Flow Rate 0 Narrative Exam Narrative: She is alert and oriented without apparent distress. heart is regular rate and rhythm without murmur. Lungs are clear to auscultation bilaterally. Extremities have no ankle edema. There is a dressing on the left hip that shows some serous type drainage which does not appear bloody or particularly fresh. Objective Labs Result Diagrams: 10/09/18 05:18 10/08/18 10:15 Assessment & Plan Assessment & Plan narrative: (1) Osteoporosis: Problem details: Hip fracture, secondary to osteoporosis secondary to fall. Would recommend vitamin-D and consideration of a bisphosphonate once she recovers from her surgery. Patient is status post ORIF. Will continue PT OT as recommended by Orthopedic surgery. Will discharge home when cleared. Current visit: Yes Status: Acute (2) Displaced fracture of left femoral neck: Problem details: Patient presents with a left femoral neck fracture. This is acute and present on admission. She is status post orthopedic repair. No hip replacement was done due to the location of the fracture and her young age but that may eventually be needed, l ater in life. Current visit: Yes Status: Acute (3) Anxiety disorder: Problem details: Anxiety disorder, present on admission Current visit: No Status: None (4) History of heroin abuse: Problem details: Patient is currently maintained on Suboxone. Resume Suboxone as an outpatient Current visit: No Status: None Quality VTE Deep Vein Thrombosis/Pulmonary Embolism Present on Admission: No
[2018-10-10 10:33] VITALS: BP 118/67; PULSE 87; RESP 17; TEMP 37.4; O2SAT 98
--- NOTE | 2018-10-10 12:16 | PT.IPTN ---
Current Diagnoses Opioid dependence with withdrawal (10/08/18) Anxiety disorder, unspecified (10/08/18) Age-related osteoporosis without current pathological fracture (10/08/18) Fracture of unspecified part of neck of left femur, initial encounter for closed fracture (10/08/18) Personal history of other specified conditions (10/08/18) Surgery Performed Operation Date: 10/08/18 19:10 Actual Procedures p ORIF Hip DHS - Momo Ayala MD Physical Therapy Treatment Note M2 PT-IP Current Condition Start: 10/08/18 15:51 Freq: Status: Active Protocol: Document 10/09/18 14:08 AB (Rec: 10/09/18 15:51 AB [id number]) Physical Therapy Current Condition Current Condition Evaluation Date 10/09/18 Treatment Diagnosis L displaced femoral neck fx s/ p L hip ORIF; difficulty in walking Onset Date 10/08/18 Weight Bearing Status Weight Bearing Status Touch Down Weight Bearing Allowed Weight Bearing Amount (enter % LLE: TTWB or #) (%) M3 PT-IP Subjective Start: 10/08/18 15:51 Freq: Status: Active Protocol: Document 10/10/18 11:40 CLB (Rec: 10/10/18 12:16 CLB [id number]) Subjective Physical Therapy Visit Type Type Patient Refusal Notes Pt refused x3 this morning, will check back with pt in afternoon.
--- NOTE | 2018-10-10 12:44 | PM.PNPO.1 ---
Subjective Date Patient Seen: 10/10/18 Time Patient Seen: 09:00 Interval history: Patient is seen postop day 2, left hip ORIF with DHS. Patient appears much more comfortable today and although she complains of some pain especially with mobility she also states that she feels much better than she has over the past week or 2. She has not been up yet today, but is looking forward to getting up with physical therapy today. Exam Vital Signs (past 8 hours): - 10/10/18 08:00 10/10/18 10:33 Temperature 98.9 F 99.3 F Pulse Rate 95 H 87 Respiratory Rate 17 17 Blood Pressure 119/68 118/67 Pulse Oximetry 99 98 Oxygen Delivery Method Room Air Oxygen Flow Rate 0 Narrative Exam Narrative: Minimal if any swelling of the lower extremities distal neurovascular examination is intact. Dressing is dry and intact although there is some small strike through most likely from initial postoperative bleeding. Objective Labs Result Diagrams: 10/09/18 05:18 10/08/18 10:15 Assessment & Plan Post-op Postoperative Procedures Operation Date: 10/08/18 19:10 Actual Procedures Side Surgeon p ORIF Hip DHS Momo Ayala MD Postoperative day: 2 Postoperative status: doing well Postoperative status narrative: Patient doing reasonably well and will continue to mobilize as tolerated. S the patient is doing well but we discussed again today the potential risk of either fracture nonunion or avascular necrosis which would require further treatment most likely in the form of an endoprosthetic replacement. Postoperative plan: routine post-op care Postoperative plan narrative: Patient may be discharged when medically stable, however significant concerns for her living situation remain in regard to self-care and postoperative care. discharge planning is working on some of these issues with the patient. plan is for the patient to remain toe-touch weight-bearing on crutches for 6 weeks. She will see me back in 2 weeks for wound check, staple removal, and repeat x-rays. Quality VTE Deep Vein Thrombosis/Pulmonary Embolism Present on Admission: No
--- NOTE | 2018-10-10 12:48 | P.PN_ITS ---
Subjective Date Patient Seen: 10/10/18 Time Patient Seen: 09:00 Interval history: Patient is seen postop day 2, left hip ORIF with DHS. Patient appears much more comfortable today and although she complains of some pain especially with mobility she also states that she feels much better than she has over the past week or 2. She has not been up yet today, but is looking forward to getting up with physical therapy today. Exam Vital Signs (past 8 hours): - 10/10/18 08:00 10/10/18 10:33 Temperature 98.9 F 99.3 F Pulse Rate 95 H 87 Respiratory Rate 17 17 Blood Pressure 119/68 118/67 Pulse Oximetry 99 98 Oxygen Delivery Method Room Air Oxygen Flow Rate 0 Narrative Exam Narrative: Minimal if any swelling of the lower extremities distal neurovascular examination is intact. Dressing is dry and intact although there is some small strike through most likely from initial postoperative bleeding. Objective Labs Result Diagrams: 10/09/18 05:18 10/08/18 10:15 Assessment & Plan Post-op Postoperative Procedures Operation Date: 10/08/18 19:10 Actual Procedures Side Surgeon p ORIF Hip DHS Momo Ayala MD Postoperative day: 2 Postoperative status: doing well Postoperative status narrative: Patient doing reasonably well and will continue to mobilize as tolerated. S the patient is doing well but we discussed again today the potential risk of either fracture nonunion or avascular necrosis which would require further treatment most likely in the form of an endoprosthetic replacement. Postoperative plan: routine post-op care Postoperative plan narrative: Patient may be discharged when medically stable, however significant concerns for her living situation remain in regard to self- care and postoperative care. discharge planning is working on some of these issues with the patient. plan is for the patient to remain toe-touch weight- bearing on crutches for 6 weeks. She will see me back in 2 weeks for wound check, staple removal, and repeat x-rays. Quality VTE Deep Vein Thrombosis/Pulmonary Embolism Present on Admission: No
--- NOTE | 2018-10-10 13:36 | PT.IPTN ---
Current Diagnoses Opioid dependence with withdrawal (10/08/18) Anxiety disorder, unspecified (10/08/18) Age-related osteoporosis without current pathological fracture (10/08/18) Fracture of unspecified part of neck of left femur, initial encounter for closed fracture (10/08/18) Personal history of other specified conditions (10/08/18) Surgery Performed Operation Date: 10/08/18 19:10 Actual Procedures p ORIF Hip DHS - Momo Ayala MD Physical Therapy Treatment Note M2 PT-IP Current Condition Start: 10/08/18 15:51 Freq: Status: Active Protocol: Document 10/09/18 14:08 AB (Rec: 10/09/18 15:51 AB [id number]) Physical Therapy Current Condition Current Condition Evaluation Date 10/09/18 Treatment Diagnosis L displaced femoral neck fx s/ p L hip ORIF; difficulty in walking Onset Date 10/08/18 Weight Bearing Status Weight Bearing Status Touch Down Weight Bearing Allowed Weight Bearing Amount (enter % LLE: TTWB or #) (%) M3 PT-IP Subjective Start: 10/08/18 15:51 Freq: Status: Active Protocol: Document 10/10/18 12:50 CLB (Rec: 10/10/18 13:36 CLB [id number]) Subjective Physical Therapy Visit Type Type Treatment Note Visit Start Time 12:50 Visit Stop Time 13:05 Total Visit Minutes 15 Number of SITECORE DEVELOPER Visits 1 Physical Therapy Visit Comments Patient Comments pt agreed to get up to sit in chair. Therapy Pain Assessment Pain When Pain Assessed During Mobility Pain Present Pain Present Pain Reported Location Left Upper Leg Intensity 8 Scale Used Numeric (1 - 10) Pain Management Techniques Apply Cold Re-positioning Timing of Activity with Medications M4 PT-IP Mobility and Gait Start: 10/08/18 15:51 Freq: Status: Active Protocol: Document 10/10/18 12:50 CLB (Rec: 10/10/18 13:36 CLB [id number]) PT-Bed Mobility Assessment Supine to Sit Supine to Sit Minimal Assistance Head of Bed Elevated Scooting Scooting to Edge of Bed Minimal Assistance PT-Transfer Assessment Sit to and From Stand Sit to and from Stand Contact Guard Assistance Use of Upper Extremities Equipment Transfer Assistive Device Gait Belt Front Wheeled Walker Orthotic/Prosthetic Devices or Brace: No Transfers Transfer Destination Chair Transfer Technique Stand Step Pivot Transfer Ability Level of Assist Minimal Assistance 1 Person Assistance Use of Upper Extremities Comments Mobility Comments Pt required Min A for bed mobility and CGA for sit-stand . Gait Assessment Gait Gait Assistance Required: Minimum Assistance Distance (Feet) 5 Able to Maintain Weight Bearing Status Yes During Gait Assistive Devices Assistive Device Gait Belt Front Wheeled Walker Orthotic/Prosthetic Devices or Brace: No Factors Limiting Gait Function Factors Limiting Gait Function Decreased Activity Tolerance Decreased Strength Limited Range of Motion Pain Poor Balance Comments Gait Comments Pt with increased pain during gait. Pt only able to ambulate ~5ft before chair was placed behind her so she could sit. M5 PT-IP Objective Assessments Start: 10/08/18 15:51 Freq: Status: Active Protocol: Document 10/09/18 14:08 AB (Rec: 10/09/18 15:51 AB [id number]) Orientation Orientation/Cognition Level of Alertness Alert Orientation Name Age Place Situation Gross Range of Motion Lower Extremity ROM Assessment Left Impaired Impairments knee flexor tightness noted Strength Lower Extremity Strength Assessment Left Impaired Knee 3-/5 M6 PT-IP Treatment Start: 10/08/18 15:51 Freq: Status: Active Protocol: Document 10/10/18 12:50 CLB (Rec: 10/10/18 13:36 CLB [id number]) Physical Therapy Treatment Exercises Exercises Heel Slides Education Education Provided Precautions Weight Bearing Status Safety M7 PT-IP Assessment and Plan Start: 10/08/18 15:51 Freq: Status: Active Protocol: Document 10/10/18 12:50 CLB (Rec: 10/10/18 13:36 CLB [id number]) PT Summary Assessment and Plan Summary Impairments Pain ROM Strength Balance Coordination Sensation Tone Cognition Bed Mobility Transfers Gait Activity Tolerance Progress Towards Goals Slow Progress due to Pain Assessment Summary Pt continues to need Min A for all mobility and is unable to ambulate household distances due to pain. Pt will require SNF rehab to improve mobility and safety before d/c home. Goals Bed Mobility Goal Standby Assistance Transfer Goal Standby Assistance Front Wheeled Walker Gait Goal Standby Assistance Front Wheel Walker Gait Distance 50 Other Goals up/down one step using FWW CGA Days to Meet Goals 5 Frequency of Treatment Frequency Of Treatment Twice a Day Treatment Plan Physical Therapy Treatment Plan Bed Mobility Training Transfer Training Gait Training Therapeutic Exercise Balance Retraining Post Op Education Discharge Planning Hot or Cold Pack Neuromuscular Re-ed Coordination Retraining Manual Therapy Other Recommendations and Next Treatment transfers, ambulation Focus Recommendations To Nursing Amount of Assist Needed 1 Person Assist Discharge Recommendations PT Discharge Recommendations SNF Rehab Equipment Needed for Home Before if pt progress and is able to Discharge go home: will need w/c for long distance mobility and FWW for transfers/short distance mobility
[2018-10-10 15:40] VITALS: BP 111/52; PULSE 93; RESP 16; TEMP 36.4; O2SAT 99
--- NOTE | 2018-10-10 16:08 | PC.NURSE ---
Addendum entered by Margie Diallo R.N. 10/10/18 22:59: Has slept since last medicated. Family has now left pt's room. Pillow between legs and ice to left groin/left lateral hip incision as pt desires. No change in neurovascular status. Pt has flat affect. Original Note: Addendum entered by Margie Diallo R.N. 10/10/18 20:09: Refuses to get up to toilet per [employer] T[employer]IVER. Using bedpan. Pt reports pain in left groin 5-6/10. Administered prn vistaril, oxycodone and tylenol as ordered. Ice to site. Pt adjusts buttocks in bed, but requires assistance to move LLE. Pillow between legs to prevent adduction. Will continue to monitor for rest/relief. Pt has numerous meal trays in room, but requests staff not remove these. Family visiting. Original Note: Addendum entered by Margie Diallo R.N. 10/10/18 16:53: Pt now back in bed sleeping soundly. Will hold 1700 med until pt wakeful. Original Note: Pt in recliner in room with family at chairside. Pt has requested pain meds via [employer]. Pt is drowsy, but rousable and appropriate in mentation and conversation. Equally warm and pink extremities. Palpable post tib pulse left foot. Bulky dressing intact to left hip with moderate amount old, shadowy drainage proximally. Ice replaced to left hip. Reinforced to pt not to attempt out of chair without staff assistance. Pt reports unable to walk without assistance and verbalizes will call when desiring/needing to get out of chair. Call light available.
[2018-10-10 20:00] VITALS: BP 114/64; PULSE 93; RESP 16; TEMP 37.3; O2SAT 97
[2018-10-11] VITALS (7 sets, daily range): BP systolic 106–118; BP diastolic 55–66; PULSE 86–101; RESP 16–19; TEMP 36.6–37.4; O2SAT 97–100
[2018-10-11] MEDS: OXYCODONE IR 5 MG TABLET PO ×6 (01:29→22:52)
[2018-10-11] MEDS: hydrOXYzine pamoate 25 MG CAPSULE PO ×4 (01:38→21:16)
--- NOTE | 2018-10-11 07:21 | P.PN_ITS ---
Subjective Date Patient Seen: 10/11/18 Interval history: Urmila Wiley is a 38-year-old female with a history of polysubstance abuse on Suboxone for opiate withdrawal who presented with left hip pain and found to have acute versus subacute left hip fracture now status post ORIF. The patient is resting in bed comfortably. She has little to no pain of which is currently controlled with oxycodone. She has no Suboxone at home and reports she will have to go to or call the clinic upon discharge. She denies headache, shortness of breath, chest pain, abdominal pain, nausea, vomiting, fever, chills, dysuria, diarrhea or constipation. She is voiding without difficulty. She has not had a bowel movement since admission and implementing a bowel regimen today. She is up ambulating with assistance and PT/OT. Exam Vital Signs (past 8 hours): - 10/11/18 01:30 10/11/18 06:00 Temperature 98.8 F 98.5 F Pulse Rate 86 101 H Respiratory Rate 19 16 Blood Pressure 106/55 L 114/66 Pulse Oximetry 100 97 Oxygen Delivery Method Room Air Oxygen Flow Rate 0 Narrative Exam Narrative: General: Young thin female sitting in bed and in no acute distress, well- developed, well-nourished, appropriately interactive. HEENT: Normocephalic, atraumatic. External ears without defect. Pupils equal, round, and reactive to light. Anicteric sclerae, moist conjunctivae, and no lid lag. Oropharynx free of erythema and cobble stoning with moist mucosa. Neck: Supple with full range of motion. No jugular venous distension. No bruits. No lymphadenopathy or thyromegaly. Cardiovascular: Regular rhythm, mildly tachycardic without murmurs, rubs, or gallops appreciated. Pulmonary: Clear to auscultation bilaterally without crackles, wheezes, or rhonchi. Normal respiratory effort with no use of accessory muscles. Abdomen: Soft, bowel sounds present, nontender, nondistended. No hepatosplenomegaly or masses appreciated. Extremities: No clubbing, cyanosis, or edema. Skin: Normal temperature, turgor, and texture; no rash, ulcers, or subcutaneous nodules appreciated. Neurological: Cranial nerves grossly intact. Psychiatric: Depressed mood and flat affect. Alert and oriented to person, place, and time. Objective Labs Result Diagrams: 10/11/18 08:05 10/11/18 08:05 Assessment & Plan Assessment & Plan narrative: Urmila Wiley is a 38-year-old female with a history of polysubstance abuse currently on Suboxone for opiate withdrawal who was recently treated for cellulitis who presented after ground level fall with left hip fracture. 1. Left pathological hip fracture after ground level fall, secondary to presumed osteoporosis, present on admission. Active. -CTA of abdomen demonstrated acute or subacute left femoral neck fracture now status post ORIF. No hip replacement was done due to the location of the fracture and her young age but that may eventually be needed, later in life. -Continue vitamin-D3 and will need outpatient follow-up for osteoporosis workup (unclear why patient would be osteoporotic other than excessive smoking) and consideration of a bisphosphonate. -Continue PT and OT evaluation and treatment. 2. Anxiety disorder, chronic, present on admission. Stable. -Continue clonidine 0.1 mg twice daily and hydroxyzine 25 mg three times daily. 3. History of heroin abuse now on suboxone, present on admission. Stable. -Continue dilaudid and oxycodone and restart Suboxone prior to discharge (6-24 hours after last narcotic dose) if patient can bring in medication. -Maintained on Suboxone 16 mg sublingual daily and will resume as an outpatient. Disposition: Likely to discharge home with home health in 1-2 days depending on improvement in mobilization with physical therapy and occupational therapy. Quality VTE Deep Vein Thrombosis/Pulmonary Embolism Present on Admission: No
--- NOTE | 2018-10-11 07:46 | P.PN_ITS ---
Subjective Date Patient Seen: 10/11/18 Interval history: Patient seen bedside s/p left hip dynamic screw POD #3. Naren messina is resting comfortably in bed and states that pain is well controlled. She has been refusing to get up with nursing and will only use a bed balderas. She has a difficult living situation and will need continued care from social work to address this. Exam Vital Signs (past 8 hours): - 10/11/18 01:30 10/11/18 06:00 Temperature 98.8 F 98.5 F Pulse Rate 86 101 H Respiratory Rate 19 16 Blood Pressure 106/55 L 114/66 Pulse Oximetry 100 97 Oxygen Delivery Method Room Air Oxygen Flow Rate 0 Narrative Exam Narrative: Well developed, well nourished, no acute distress. Alert & oriented x3. Dressing on left hip is clean, dry, and intact with no signs of drainage. Calves are soft and compressible and patient has full range of motion at the ankle. Objective Labs Result Diagrams: 10/09/18 05:18 10/08/18 10:15 Assessment & Plan Post-op Postoperative Procedures Operation Date: 10/08/18 19:10 Actual Procedures Side Surgeon p ORIF Hip DHS Momo Ayala MD 1. POD #3 s/p above procedure-continue work with PT, toe touch weightbearing with crutches x6 weeks and pain control. Transition to Suboxone when medically appropriate. Dispo-home when medically ready vs. SNF. Quality VTE Deep Vein Thrombosis/Pulmonary Embolism Present on Admission: No
[2018-10-11 08:18] LABS: Add Manual Diff / Slide Review NO; Basophils Absolute Auto 0 /uL (0-100); Basophils Percent Auto 0.2 % (0-2); Eosinophils Absolute Auto 100 /uL (0-450); Eosinophils Percent Auto 1.2 % (2-4); Hematocrit 31.9 % (36-46); Hemoglobin 10.8 g/dL (12.0-16.0); Lymphocytes Absolute Auto 1100 /uL (1100-4500); Lymphocytes Percent Auto 10.7 % (25-40); Mean Corpuscular HGB Conc 33.9 % (30-36); Mean Corpuscular Hemoglobin 28.7 PG (26-34); Mean Corpuscular Volume 84.5 fL (80-100); Monocytes Absolute Auto 1100 /uL (0-900); Monocytes Percent Auto 10.2 % (3-14); Neutrophils Absolute Auto 8300 /uL (1500-7000); Neutrophils Percent Auto 77.7 % (50-75); Platelet Count 341 X10^3/uL (150-400); Red Blood Cell Count 3.77 X10^6/uL (4.0-5.2); Red Cell Distribution Width 13.3 % (11.6-14.8); White Blood Cell Count 10.7 X10^3/uL (4.5-11.0)
[2018-10-11 08:37] LABS: Alanine Aminotransferase 24 IU/L (9-52); Albumin 3.3 g/dL (3.5-5.0); Alkaline Phosphatase 121 U/L (38-126); Aspartate Aminotransferase 17 IU/L (14-36); Bilirubin Total 0.2 mg/dL (0.2-1.3); Blood Urea Nitrogen 12 mg/dL (7-17); Calcium 8.8 mg/dL (8.4-10.2); Carbon Dioxide 29 mmol/L (22-32); Chloride 101 mmol/L (98-107); Estimated Glomerular Filt Rate > 60.0 mL/min (>60); Globulin 3.2 g/dL (1.7-4.1); Glucose 99 mg/dL (70-100); HEMOLYSIS < 15 (0-50); Magnesium 1.7 mg/dL (1.6-2.3); Sodium 135 mmol/L (137-145); Total Protein 6.5 g/dL (6.3-8.2)
[2018-10-11] MEDS: ACETAMINOPHEN 325 MG TABLET 975 MG PO ×3 (08:37→21:16)
[2018-10-11] MEDS: CALCIUM CARB/VIT D3 500/200 TABLET 1 EACH PO ×2 (08:37→18:44)
[2018-10-11] MEDS: ASPIRIN EC 81 MG TABLET PO ×2 (08:37→21:16)
[2018-10-11] MEDS: NICOTINE 21 MG PATCH TOP (08:38)
[2018-10-11] MEDS: cloNIDine 0.1 MG TABLET PO ×2 (08:38→21:16)
--- NOTE | 2018-10-11 10:13 | PC.NURSE ---
Addendum entered by Sasha hSin R.N. 10/11/18 12:28: At around 1030 I asked pt if she had gone to the BR yet. pt responded with no, I don't need to go'. I told her that she will need to use the restroom soon and the pt agreed. patient has been sleeping in chair since (it is now 1230), her lunch has not been touched yet and is on the table in front of her. Original Note: Addendum entered by Sasha Shin R.N. 10/11/18 10:17: pt state that doesn't want to start her suboxone while she is having pain and has oxycodone. Original Note: AM Shift pt AO, but sleepy during conversations. reporting pain of 4/10 and tolerating with morning scheduled Tylenol and Vistaril. pt lacks motivation to reposition independently and refused assistance with breakfast. Had a conversation with pt to re-enforce PA's message of increasing ambulation and activity, pt agreed as long as we can time pain medications correctly, I stated that we will try our best. PT and OT in room currently assisting pt with ADL's. patient calm and receptive, yet seems hesitant. pt has flat affect with conversation. Multiple food trays at bedside and counters, pt requests to keep in room (I believe it has do to with food insecurities). Dr. Cohen also had conversation with pt regarding increasing activity and titrating off oxycodone and back onto her Saboxone.
--- NOTE | 2018-10-11 10:58 | OT.IP.EVAL ---
Current Diagnoses Opioid dependence with withdrawal (10/08/18) Anxiety disorder, unspecified (10/08/18) Age-related osteoporosis without current pathological fracture (10/08/18) Fracture of unspecified part of neck of left femur, initial encounter for closed fracture (10/08/18) Personal history of other specified conditions (10/08/18) Surgery Performed Operation Date: 10/08/18 19:10 Actual Procedures p ORIF Hip DHS - Momo Ayala MD Past Medical History (Last Reviewed 10/08/18 @ 21:16 by Momo Ayala MD) Opiate addiction (Acute) Occupational Therapy Inpatient Evaluation/Re-Eval M1 PT/OT-IP Prior Functional Status Start: 10/09/18 13:21 Freq: NEEDED Status: Active Protocol: Document 10/11/18 10:36 [facility] (Rec: 10/11/18 10:58 [facility] [id number]) Medical Review Prior Functional Status Medical History Reviewed Yes Diet/Fluid Consistency Regular Thin Liquids Communication able to make needs known Mobility and Gait pt stated that she is independent with all mobilities and ambulation without AD Activities of Daily Living and IADL's States completely independent. Social History Household Members significant other children Living Arrangements House Number of Floors (Floors) One Floor Number of Stairs To Enter/Railing? 1 step to enter Home Environment Standard Height Toilet Tub/Shower Home Equipment Crutches Grab Bars In Shower Employment Status Unemployed Additional Social History Comment stated that SO works and she has small kids at home M2 OT-IP Current Condition Start: 10/09/18 13:21 Freq: Status: Active Protocol: Document 10/11/18 10:36 [facility] (Rec: 10/11/18 10:58 [facility] [id number]) Occupational Therapy Current Condition Current Condition Evaluation Date 10/11/18 Treatment Diagnosis Displaced left femoral neck fracture Diagnosis Onset Date 10/08/18 Weight Bearing Status Weight Bearing Status Touch Down Weight Bearing Allowed Weight Bearing Amount (enter % LLE TTWB or #) (%) M3 OT- IP Subjective and Pain Start: 10/09/18 13:21 Freq: Status: Active Protocol: Document 10/11/18 10:36 [facility] (Rec: 10/11/18 10:58 [facility] [id number]) OT- Subjective Occupational Therapy Visit Type Type Initial Evaluation Visit Start Time 09:50 Visit Stop Time 10:35 Total Visit Minutes 45 Occupational Therapy Visit Comments Patient Comments Pt needing encouragement but did agree to get up. PT also present for session. OT Pain Assessment Pain When Pain Assessed During Mobility Pain Present Pain Present Pain Reported Location Left Upper Leg Intensity 6 M4 OT- IP ADL's Start: 10/09/18 13:21 Freq: Status: Active Protocol: Document 10/11/18 10:36 [facility] (Rec: 10/11/18 10:58 [facility] [id number]) OT RWQ-Mjjx-Byukeor General Evaluation Self-Feeding Ability Independent OT ADL-Grooming General Evaluation Grooming Ability Standby Assistance Areas Needing Assistance Retrieving/Set-up of Grooming Items Comments OT Grooming Comments Pt able to do grooming needs while standing at sink with FWW and SBA and able to maintain TTWB for LLE. OT ADL-Oral Care General Eval Oral Care Ability Independent OT ADL-Dressing General Eval Lower Body Dressing Ability Maximum Assistance Comments OT Dressing Comments Educated pt on use of LB AED. Pt not able to practice with LLE due to pain but able to show good safety and demonstration for RLE. OT ADL-Toileting Comments OT Toileting Comments Pt not needing to use the bathroom at this time. Recommended that pt get BSC to place over toilet and having to heavily rely on her arms to help to stand and would increase ease to stay with BSC . OT ADL-Bathing Comments OT Bathing Comments Pt has tub/shower and would benefit from tub bench and HHSP. Pt states open to shower tomorrow for OT treatment. M5 OT- IP IADL's Start: 10/09/18 13:21 Freq: Status: Active Protocol: Document 10/11/18 10:36 [facility] (Rec: 10/11/18 10:58 [facility] [id number]) OT-Instrumental Activities of Daily Living Home Safety Awareness Home Safety Comments At this time pt will need assist for IADL needs. In addition will need assist from family to care for her children. M6 OT- IP Functional Cognition Start: 10/09/18 13:21 Freq: Status: Active Protocol: Document 10/11/18 10:36 [facility] (Rec: 10/11/18 10:58 [facility] [id number]) Cognitive Factors Limiting Selfcare Function Cognitive Ability Level of Alertness Alert Patient Orientation Name Place Situation Attention Span Ability Capable of Focused Attention Capable of Sustained Attention Ability to Follow Commands Able to Follow Multi-Step Commands Memory Description Immediate Intact Residential Intact Working Intact Cognitive Comments Cognitive Assessment Comments Pt able to follow multiple command and adhere to TTWB LLE precautions at this time. Pt continues to need education for LLE management and exercise needs that PT was able to talk to pt about. OT- Vision and Hearing OT- Hearing Assessment OT- Hearing Assessment WFL OT- Vision Assessment Visual Acuity WFL M7 OT- IP Mobility and Balance Start: 10/09/18 13:21 Freq: Status: Active Protocol: Document 10/11/18 10:36 [facility] (Rec: 10/11/18 10:58 [facility] [id number]) OT- Bed Mobility Assessment Supine to Sit Supine to Sit Assist Minimal Assistance 1 Person Assistance Scooting Scooting to Edge of Bed Minimal Assistance OT-Transfer Assessment Sit to and From Stand Sit to and from Stand Contact Guard Assistance Minimal Assistance 1 Person Assistance Transfers Transfer Ability Contact Guard Assistance 1 Person Assistance Technique Transfer Destination Bed Devices Transfer Assistive Devices Gait Belt Front Wheeled Walker Comments Mobility Comments Pt mainly needing WENDIE for LLE management out of the bed. CGA for safety with FWW. Pt would benefit form wheelchair from longer distances. OT- Balance Assessment Sitting Balance and Reactions Static Sitting Balance Ability Normal Dynamic Sitting Balance Ability Good Standing Balance and Reactions Static Standing Balance Ability Fair M8 OT- IP Objective Assessments Start: 10/09/18 13:21 Freq: Status: Active Protocol: Document 10/11/18 10:36 [facility] (Rec: 10/11/18 10:58 [facility] [id number]) OT Gross Range of Motion Upper Extremity Range of Motion Assessment Within Functional Limits OT Strength Upper Extremity Strength Assessment Within Functional Limits Comments Strength Comments WFL OT- Coordination Assessment Comments Coordination Comments intact M9 OT- IP Assessment and Plan Start: 10/09/18 13:21 Freq: Status: Active Protocol: Document 10/11/18 10:36 [facility] (Rec: 10/11/18 10:58 [facility] [id number]) OT Summary Assessment and Plan Potential Rehabilitation Potential Good Analytic Complexity at Evaluation Low Summary OT Impairments Functional Mobility Dressing Toileting Bathing Toilet Transfers Shower Transfers Progress Towards Goals Progressing Toward Goals Assessment Summary Pt low complexity and main barrier is pain and now needing assist for Adl and functional mobility needs. Pt would benefit from skilled rehab versus home with assist and home health. Pt's family to come in for training today and to get equipment needs at [facility]. Goals Grooming Goal Independent Dressing Goal Standby Assistance Toileting Goal Standby Assistance Bathing Goal Minimal Assistance Toilet Transfer Goal Standby Assistance Shower Transfer Goal Contact Guard Assistance Patient/Caregiver Education Goal Caregiver Independent Assisting Patient Days to Meet Goals 3 Frequency of Treatment Frequency Of Treatment Once a Day Treatment Plan OT Treatment Plan ADL Training Functional Mobility Patient/Family Education Discharge Planning Other Treatment Recommendations and Next Shower and practise LB AED. Treatment Focus Caregiver training. Discharge Recommendations OT Discharge Recommendations Home with Assistance Home Health SNF Rehab Home Equipment Needs BSC, tub bench, HHSP, wheel chair, FWW, leg foreign service teacher
--- NOTE | 2018-10-11 11:44 | CM.DPC ---
DCP/continued: Reviewed chart. Spoke with Dr. Cohen in AM rounds re: d/c planning. Current recommendation is SNF vs. home with HH. Patient is a 38yr old with h/o polysubstane abuse. Tox screen positive upon admit for Methamphetamines. Patient currently enrolled with outpatient suboxene program as well for heroin abuse. Met with patient explained PUBLIC POLICY MANAGER role. Patient alert but sleepy at time of visit. Patient sitting in recliner. PUBLIC POLICY MANAGER asked patient about d/c plan? Patient reports that current plan is to return to mot with darwin and her 2 young children. PUBLIC POLICY MANAGER asked patient about alternative options such as staying with her parents? Patient does not feel like this would be an option because their residence is small and they already are caring for her teenage son. Spoke with therapy and they anticipate patient will be able to return to motel with caregiver training and DME. With patient's permission placed call to patient's marciano/Meaghan requesting that he be at [facility] today at 2:00pm to start caregiver training, he is agreeable. Loan closet list provided to patient. Patient and Meaghan [facility] [place] P: Anticipate home/motel when stable. Patient would benefit from HH visit if agency can be identified. CPS d/c disposition call also appropriate given patient's history and ability to care for young children at time of d/c. See previous PUBLIC POLICY MANAGER notes for CPS involvement in the past. GIORGIO Abrams
--- NOTE | 2018-10-11 12:55 | PT.IPTN ---
Current Diagnoses Opioid dependence with withdrawal (10/08/18) Anxiety disorder, unspecified (10/08/18) Age-related osteoporosis without current pathological fracture (10/08/18) Fracture of unspecified part of neck of left femur, initial encounter for closed fracture (10/08/18) Personal history of other specified conditions (10/08/18) Surgery Performed Operation Date: 10/08/18 19:10 Actual Procedures p ORIF Hip DHS - Momo Ayala MD Physical Therapy Treatment Note M2 PT-IP Current Condition Start: 10/08/18 15:51 Freq: Status: Active Protocol: Document 10/09/18 14:08 AB (Rec: 10/09/18 15:51 AB [id number]) Physical Therapy Current Condition Current Condition Evaluation Date 10/09/18 Treatment Diagnosis L displaced femoral neck fx s/ p L hip ORIF; difficulty in walking Onset Date 10/08/18 Weight Bearing Status Weight Bearing Status Touch Down Weight Bearing Allowed Weight Bearing Amount (enter % LLE: TTWB or #) (%) M3 PT-IP Subjective Start: 10/08/18 15:51 Freq: Status: Active Protocol: Document 10/11/18 09:50 [facility] (Rec: 10/11/18 12:55 HH [id number]) Subjective Physical Therapy Visit Type Type Treatment Note Visit Start Time 09:50 Visit Stop Time 10:20 Total Visit Minutes 30 Notes Co-tx with OT due to pt's low functional mobility. Number of REPORTING COORDINATOR Visits 0 Physical Therapy Visit Comments Patient Comments Pt agreeable to mobilize with PT. Requested pain med for after seesion. Therapy Pain Assessment Pain When Pain Assessed During Mobility Pain Present Pain Present Pain Reported Location Left Upper Leg Intensity 5 Scale Used Numeric (1 - 10) Pain Management Techniques Apply Cold Re-positioning Timing of Activity with Medications M4 PT-IP Mobility and Gait Start: 10/08/18 15:51 Freq: Status: Active Protocol: Document 10/11/18 09:50 HH (Rec: 10/11/18 12:55 HH [id number]) PT-Bed Mobility Assessment Supine to Sit Supine to Sit Minimal Assistance Head of Bed Elevated Scooting Scooting to Edge of Bed Minimal Assistance PT-Transfer Assessment Sit to and From Stand Sit to and from Stand Contact Guard Assistance Use of Upper Extremities Equipment Transfer Assistive Device Gait Belt Front Wheeled Walker Orthotic/Prosthetic Devices or Brace: No Transfers Transfer Destination Chair Transfer Technique Stand Step Pivot Transfer Ability Level of Assist Minimal Assistance 1 Person Assistance Use of Upper Extremities Comments Mobility Comments min A for lifting and pivoting her L LE to L side EOB. Pt is able to transfer with CGA with the use of stagger stance and proper hand placements on chair armrest and FWW. Gait Assessment Gait Gait Assistance Required: Contact Guard Assist Distance (Feet) 18 Able to Maintain Weight Bearing Status Yes During Gait Assistive Devices Assistive Device Gait Belt Front Wheeled Walker Orthotic/Prosthetic Devices or Brace: No Factors Limiting Gait Function Factors Limiting Gait Function Decreased Activity Tolerance Decreased Strength Limited Range of Motion Pain Poor Balance Comments Gait Comments Pt showed improved sequencing for amb with FWW and reports reduced L hip pain. Pt is able to maintain TTWB with a hopping pattern. She states I feel safer to use FWW for mobility at this point. PT-Balance Assessment Sitting Balance and Reactions Static Sitting Balance Ability Good Dynamic Sitting Balance Ability Good Standing Balance and Reactions Static Standing Balance Ability Good Dynamic Standing Balance Ability Good Device Used FWW M5 PT-IP Objective Assessments Start: 10/08/18 15:51 Freq: Status: Active Protocol: Document 10/09/18 14:08 AB (Rec: 10/09/18 15:51 AB [id number]) Orientation Orientation/Cognition Level of Alertness Alert Orientation Name Age Place Situation Gross Range of Motion Lower Extremity ROM Assessment Left Impaired Impairments knee flexor tightness noted Strength Lower Extremity Strength Assessment Left Impaired Knee 3-/5 M6 PT-IP Treatment Start: 10/08/18 15:51 Freq: Status: Active Protocol: Document 10/10/18 12:50 [facility] (Rec: 10/10/18 13:36 [facility] [id number]) Physical Therapy Treatment Exercises Exercises Heel Slides Education Education Provided Precautions Weight Bearing Status Safety M7 PT-IP Assessment and Plan Start: 10/08/18 15:51 Freq: Status: Active Protocol: Document 10/11/18 09:50 HH (Rec: 10/11/18 12:55 HH [id number]) PT Summary Assessment and Plan Summary Impairments Pain ROM Strength Balance Coordination Sensation Tone Cognition Bed Mobility Transfers Gait Activity Tolerance Progress Towards Goals Slow Progress due to Pain Assessment Summary Pt cont to need min A for bed mobility primarily for lifting and pivot her L LE to EOB. CGA for improved transfers and amb. Recommended pt to use FWW for all mobility at this point. CG training at 2pm today to address her needs for DME at home. Recommended raised toilet seat, tub transfer bench , w/c and FWW. Goals Bed Mobility Goal Standby Assistance Transfer Goal Standby Assistance Front Wheeled Walker Gait Goal Standby Assistance Front Wheel Walker Gait Distance 50 Other Goals up/down one step using FWW CGA Days to Meet Goals 5 Frequency of Treatment Frequency Of Treatment Twice a Day Treatment Plan Physical Therapy Treatment Plan Bed Mobility Training Transfer Training Gait Training Therapeutic Exercise Balance Retraining Post Op Education Discharge Planning Hot or Cold Pack Neuromuscular Re-ed Coordination Retraining Manual Therapy Other Recommendations and Next Treatment bed mob with bed sheet/ gait Focus belt., transfers, ambulation Recommendations To Nursing Amount of Assist Needed 1 Person Assist Discharge Recommendations PT Discharge Recommendations SNF Rehab Other Discharge Recommendations short term rehab at SNF to improve mobility Equipment Needed for Home Before if pt progress and is able to Discharge go home: will need w/c for long distance mobility and FWW for transfers/short distance mobility; raised toilet seat, tub transfer bench
--- NOTE | 2018-10-11 17:06 | PT.IPTN ---
Current Diagnoses Opioid dependence with withdrawal (10/08/18) Anxiety disorder, unspecified (10/08/18) Age-related osteoporosis without current pathological fracture (10/08/18) Fracture of unspecified part of neck of left femur, initial encounter for closed fracture (10/08/18) Personal history of other specified conditions (10/08/18) Surgery Performed Operation Date: 10/08/18 19:10 Actual Procedures p ORIF Hip DHS - Momo Ayala MD Physical Therapy Treatment Note M2 PT-IP Current Condition Start: 10/08/18 15:51 Freq: Status: Active Protocol: Document 10/09/18 14:08 AB (Rec: 10/09/18 15:51 AB [id number]) Physical Therapy Current Condition Current Condition Evaluation Date 10/09/18 Treatment Diagnosis L displaced femoral neck fx s/ p L hip ORIF; difficulty in walking Onset Date 10/08/18 Weight Bearing Status Weight Bearing Status Touch Down Weight Bearing Allowed Weight Bearing Amount (enter % LLE: TTWB or #) (%) M3 PT-IP Subjective Start: 10/08/18 15:51 Freq: Status: Active Protocol: Document 10/11/18 15:40 HH (Rec: 10/11/18 17:06 HH [email or web address]) Subjective Physical Therapy Visit Type Type Treatment Note Visit Start Time 15:40 Visit Stop Time 16:00 Total Visit Minutes 20 Notes Pt's darwin and her youngest dtr attended CG training. Number of PLATE GRAINER Visits 0 Physical Therapy Visit Comments Patient Comments I want to go back to bed. Therapy Pain Assessment Pain When Pain Assessed During Mobility Pain Present Pain Present Pain Reported Location Left Upper Leg Intensity 5 Scale Used Numeric (1 - 10) Pain Management Techniques Apply Cold Re-positioning Timing of Activity with Medications M4 PT-IP Mobility and Gait Start: 10/08/18 15:51 Freq: Status: Active Protocol: Document 10/11/18 15:40 HH (Rec: 10/11/18 17:06 HH [id number]) PT-Bed Mobility Assessment Sit to Supine Sit to Supine Moderate Assistance 1 Person Assistance Scooting Scooting to Edge of Bed Contact Guard Assistance Scooting Up and Down in Bed Contact Guard Assistance PT-Transfer Assessment Sit to and From Stand Sit to and from Stand Contact Guard Assistance Use of Upper Extremities Equipment Transfer Assistive Device Gait Belt Front Wheeled Walker Orthotic/Prosthetic Devices or Brace: No Transfers Transfer Destination Bed Chair Transfer Technique Stand Step Pivot Transfer Ability Level of Assist Contact Guard Assistance 1 Person Assistance Comments Mobility Comments Pt up in chair upon session. She stood up and stand pivot transferred back to bed with CGA FWW. She required mod A to lift her LLE but she was able to scoot with CGA in bed. Gait Assessment Comments Gait Comments did not amb this pm due to fatigue and pain. M5 PT-IP Objective Assessments Start: 10/08/18 15:51 Freq: Status: Active Protocol: Document 10/09/18 14:08 AB (Rec: 10/09/18 15:51 AB [id number]) Orientation Orientation/Cognition Level of Alertness Alert Orientation Name Age Place Situation Gross Range of Motion Lower Extremity ROM Assessment Left Impaired Impairments knee flexor tightness noted Strength Lower Extremity Strength Assessment Left Impaired Knee 3-/5 M6 PT-IP Treatment Start: 10/08/18 15:51 Freq: Status: Active Protocol: Document 10/10/18 12:50 [facility] (Rec: 10/10/18 13:36 [facility] [id number]) Physical Therapy Treatment Exercises Exercises Heel Slides Education Education Provided Precautions Weight Bearing Status Safety M7 PT-IP Assessment and Plan Start: 10/08/18 15:51 Freq: Status: Active Protocol: Document 10/11/18 15:40 HH (Rec: 10/11/18 17:06 HH [id number]) PT Summary Assessment and Plan Summary Impairments Pain ROM Strength Balance Coordination Sensation Tone Cognition Bed Mobility Transfers Gait Activity Tolerance Progress Towards Goals Slow Progress due to Pain Assessment Summary Pt's darwin attended CG training. Recommended him to obtain w/c, tub transfer bench , FWW, raised toilet seat. Demonstrated pt and her fiancee how to assist pt for sit to supine with a belt/bed sheet, and sit to supine by lifting pt's LLE. He also stated it would be ideal if pt could go to short term rehab since he will be unavailable to assist pt at home due to work during daytime. Pt's children are currently taking care by pt's mom, her ex and himself. Pt back to bed after and fell asleep. Call light within reach. Goals Bed Mobility Goal Standby Assistance Transfer Goal Standby Assistance Front Wheeled Walker Gait Goal Standby Assistance Front Wheel Walker Gait Distance 50 Other Goals up/down one step using FWW CGA Days to Meet Goals 5 Frequency of Treatment Frequency Of Treatment Twice a Day Treatment Plan Physical Therapy Treatment Plan Bed Mobility Training Transfer Training Gait Training Therapeutic Exercise Balance Retraining Post Op Education Discharge Planning Hot or Cold Pack Neuromuscular Re-ed Coordination Retraining Manual Therapy Other Recommendations and Next Treatment bed mob with bed sheet/ gait Focus belt., transfers, ambulation Recommendations To Nursing Amount of Assist Needed 1 Person Assist Discharge Recommendations PT Discharge Recommendations SNF Rehab Other Discharge Recommendations short term rehab at SNF to improve mobility Equipment Needed for Home Before if pt progress and is able to Discharge go home: will need w/c for long distance mobility and FWW for transfers/short distance mobility; raised toilet seat, tub transfer bench
[2018-10-11] MEDS: SENNOSIDES 8.6 MG TABLET 17.2 MG PO (18:45)
[2018-10-11] MEDS: DOCUSATE 100 MG CAPSULE PO (21:16)
[2018-10-12] VITALS (7 sets, daily range): BP systolic 107–122; BP diastolic 62–74; PULSE 72–95; RESP 15–18; TEMP 36.6–36.8; O2SAT 94–99
[2018-10-12] MEDS: OXYCODONE IR 5 MG TABLET PO ×5 (01:49→20:03)
[2018-10-12] MEDS: cloNIDine 0.1 MG TABLET PO ×2 (08:49→20:04)
[2018-10-12] MEDS: ACETAMINOPHEN 325 MG TABLET 975 MG PO ×3 (08:49→20:04)
[2018-10-12] MEDS: DOCUSATE 100 MG CAPSULE PO ×2 (08:49→20:03)
[2018-10-12] MEDS: ASPIRIN EC 81 MG TABLET PO ×2 (08:49→20:03)
[2018-10-12] MEDS: hydrOXYzine pamoate 25 MG CAPSULE PO ×3 (08:52→20:04)
[2018-10-12] MEDS: CALCIUM CARB/VIT D3 500/200 TABLET 1 EACH PO ×2 (08:52→17:56)
[2018-10-12] MEDS: NICOTINE 21 MG PATCH TOP (08:53)
[2018-10-12] MEDS: POLYETHYLENE GLYCOL 3350 17 GM POWD.PACK PO (08:53)
--- NOTE | 2018-10-12 08:58 | P.PN_ITS ---
Subjective Date Patient Seen: 10/12/18 Time Patient Seen: 08:56 Interval history: Hospital day 5, postop day 4 with history of displaced left femoral neck fracture with ORIF and dynamic hip screw by Dr. Ayala on 10/08/2018. Patient has remained stable. she is toe-touch weight-bearing x6 w eeks postop. PT is recommended SNF. Patient has pain controlled with oxycodone and Vistaril and Tylenol. Patient is waiting decision on discharge. She lives with her fiance and 2 children. Her fiance does work daily. She also has parents locally but they both work full-time. Exam Vital Signs (past 8 hours): - 10/12/18 02:05 10/12/18 05:59 Temperature 97.9 F 98.3 F Pulse Rate 81 72 Respiratory Rate 15 16 Blood Pressure 109/69 108/65 Pulse Oximetry 99 99 Oxygen Delivery Method Room Air Oxygen Flow Rate 0 Narrative Exam Narrative: Alert, oriented no acute distress lying in bed. Shayy legs. Dressing to left lateral hip is dry without drainage or inflammation. No calf pain or swelling. Pulses symmetrical. Objective Labs Result Diagrams: 10/11/18 08:05 10/11/18 08:05 Assessment & Plan Post-op Postoperative Procedures Operation Date: 10/08/18 19:10 Actual Procedures Side Surgeon p ORIF Hip DHS Momo Ayala MD Plan: We will change left hip dressing to CovRsite dressing before discharge. Discharge pending clearance by hospitalist. Follow up in orthopedic office at 2 weeks postop Quality VTE Deep Vein Thrombosis/Pulmonary Embolism Present on Admission: No
--- NOTE | 2018-10-12 10:45 | PT.IPTN ---
Current Diagnoses Opioid dependence with withdrawal (10/08/18) Anxiety disorder, unspecified (10/08/18) Age-related osteoporosis without current pathological fracture (10/08/18) Fracture of unspecified part of neck of left femur, initial encounter for closed fracture (10/08/18) Personal history of other specified conditions (10/08/18) Surgery Performed Operation Date: 10/08/18 19:10 Actual Procedures p ORIF Hip DHS - Momo Ayala MD Physical Therapy Treatment Note M2 PT-IP Current Condition Start: 10/08/18 15:51 Freq: Status: Active Protocol: Document 10/09/18 14:08 AB (Rec: 10/09/18 15:51 AB [id number]) Physical Therapy Current Condition Current Condition Evaluation Date 10/09/18 Treatment Diagnosis L displaced femoral neck fx s/ p L hip ORIF; difficulty in walking Onset Date 10/08/18 Weight Bearing Status Weight Bearing Status Touch Down Weight Bearing Allowed Weight Bearing Amount (enter % LLE: TTWB or #) (%) M3 PT-IP Subjective Start: 10/08/18 15:51 Freq: Status: Active Protocol: Document 10/12/18 10:45 AB (Rec: 10/12/18 11:45 AB [id number]) Subjective Physical Therapy Visit Type Type Treatment Note Visit Start Time 10:45 Visit Stop Time 10:57 Total Visit Minutes 12 Number of BUSINESS ANALYTICS MANAGER Visits 0 Physical Therapy Visit Comments Patient Comments pt agreeable to do PT Therapy Pain Assessment Pain When Pain Assessed At Rest Pain Present Pain Present Pain Reported Location Left Upper Leg Scale Used stated pain is manageable but unable to give pain scale Pain Management Techniques Re-positioning Timing of Activity with Medications M4 PT-IP Mobility and Gait Start: 10/08/18 15:51 Freq: Status: Active Protocol: Document 10/12/18 10:45 AB (Rec: 10/12/18 11:45 AB [id number]) PT-Bed Mobility Assessment Supine to Sit Supine to Sit Standby Assistance Head of Bed Elevated Sit to Supine Sit to Supine Standby Assistance Bedrails Scooting Scooting to Edge of Bed Standby Assistance PT-Transfer Assessment Sit to and From Stand Sit to and from Stand Standby Assistance Contact Guard Assistance Use of Upper Extremities Equipment Transfer Assistive Device Gait Belt Front Wheeled Walker Orthotic/Prosthetic Devices or Brace: No Comments Mobility Comments PT used UE to assist LLE movement during bed mobility. Gait Assessment Gait Gait Assistance Required: Standby Assistance Distance (Feet) 30 Able to Maintain Weight Bearing Status Yes During Gait Assistive Devices Assistive Device Gait Belt Front Wheeled Walker Orthotic/Prosthetic Devices or Brace: No Factors Limiting Gait Function Factors Limiting Gait Function Decreased Activity Tolerance Decreased Strength Limited Range of Motion Pain Poor Balance M5 PT-IP Objective Assessments Start: 10/08/18 15:51 Freq: Status: Active Protocol: Document 10/09/18 14:08 AB (Rec: 10/09/18 15:51 AB [id number]) Orientation Orientation/Cognition Level of Alertness Alert Orientation Name Age Place Situation Gross Range of Motion Lower Extremity ROM Assessment Left Impaired Impairments knee flexor tightness noted Strength Lower Extremity Strength Assessment Left Impaired Knee 3-/5 M6 PT-IP Treatment Start: 10/08/18 15:51 Freq: Status: Active Protocol: Document 10/12/18 10:45 AB (Rec: 10/12/18 11:45 AB [id number]) Physical Therapy Treatment Exercises Exercises Ankle Pumps Quad Sets Education Education Provided Precautions Post-Op Packet Safety Equipment Issued Equipment Type and Company reviewed HEP M7 PT-IP Assessment and Plan Start: 10/08/18 15:51 Freq: Status: Active Protocol: Document 10/12/18 10:45 AB (Rec: 10/12/18 11:45 AB [id number]) PT Summary Assessment and Plan Potential Rehabilitation Potential Good Summary Impairments Pain ROM Strength Balance Coordination Sensation Tone Cognition Bed Mobility Transfers Gait Activity Tolerance Progress Towards Goals Progressing Toward Goals Assessment Summary pt requiring SBA to CGA with mobility and is limited due to pain and weight bearing restriction on LLE. pt will benefit from SNF rehab to improve strength and independence. Pt stated that she is not decided if she wants to go home of not. If, pt goes home, pt will need homehealth services, w/c and FWW. Goals Bed Mobility Goal Standby Assistance Transfer Goal Standby Assistance Front Wheeled Walker Gait Goal Standby Assistance Front Wheel Walker Gait Distance 50 Other Goals up/down one step using FWW CGA Days to Meet Goals 5 Frequency of Treatment Frequency Of Treatment Twice a Day Treatment Plan Physical Therapy Treatment Plan Bed Mobility Training Transfer Training Gait Training Therapeutic Exercise Balance Retraining Post Op Education Discharge Planning Hot or Cold Pack Neuromuscular Re-ed Coordination Retraining Manual Therapy Other Recommendations and Next Treatment bed mob with bed sheet/ gait Focus belt., transfers, ambulation Recommendations To Nursing Amount of Assist Needed 1 Person Assist Discharge Recommendations PT Discharge Recommendations SNF Rehab Equipment Needed for Home Before if pt progress and is able to Discharge go home: will need w/c for long distance mobility and FWW for transfers/short distance mobility; raised toilet seat, tub transfer bench
--- NOTE | 2018-10-12 11:00 | P.PN_ITS ---
Subjective Date Patient Seen: 10/12/18 Interval history: Urmila Wiley is a 38-year-old female with a history of polysubstance abuse on Suboxone for opiate withdrawal who presented with left hip pain and found to have acute versus subacute left hip fracture now status post ORIF. The patient is resting in bed comfortably. Her mobility has vastly improved over the last 24 hours. She has little to no pain of which is currently controlled with oxycodone. Discussed patient with her Suboxone doctor, Dr. Felder, who will provide Suboxone when patient discharges. She denies headache, shortness of breath, chest pain, abdominal pain, nausea, vomiting, fever, chills, dysuria, diarrhea or constipation. She is voiding without difficulty. She has not had a bowel movement since admission and continuing bowel regimen. She is up ambulating with assistance and PT/OT. Exam Vital Signs (past 8 hours): - 10/12/18 05:59 10/12/18 08:20 Temperature 98.3 F 97.9 F Pulse Rate 72 78 Respiratory Rate 16 16 Blood Pressure 108/65 114/73 Pulse Oximetry 99 98 Oxygen Delivery Method Room Air Oxygen Flow Rate 0 Narrative Exam Narrative: General: Young thin female sitting in bed and in no acute distress, well-developed, well-nourished, appropriately interactive. HEENT: Normocephalic, atraumatic. External ears without defect. Pupils equal, round, and reactive to light. Anicteric sclerae, moist conjunctivae, and no lid lag. Oropharynx free of erythema and cobble stoning with moist mucosa. Neck: Supple with full range of motion. No jugular venous distension. No bruits. No lymphadenopathy or thyromegaly. Cardiovascular: Regular rhythm and rate without murmurs, rubs, or gallops appreciated. Pulmonary: Clear to auscultation bilaterally without crackles, wheezes, or rhonchi. Normal respiratory effort with no use of accessory muscles. Abdomen: Soft, bowel sounds present, non-tender, non-distended. No hep atosplenomegaly or masses appreciated. Extremities: No clubbing, cyanosis, or edema. Left hip with bandage in place C/D/I without surrounding erythema. Skin: Normal temperature, turgor, and texture; no rash, ulcers, or subcutaneous nodules appreciated. Neurological: Cranial nerves grossly intact. Psychiatric: Depressed mood and flat affect. Alert and oriented to person, place, and time. Objective Labs Result Diagrams: 10/11/18 08:05 10/11/18 08:05 Assessment & Plan Assessment & Plan narrative: Urmila Wiley is a 38-year-old female with a history of polysubstance abuse currently on Suboxone for opiate withdrawal who was recently treated for cellulitis who presented after ground level fall with left hip fracture. 1. Left pathological hip fracture after ground level fall, secondary to presumed osteoporosis, present on admission. Active. -CTA of abdomen demonstrated acute vs subacute left femoral neck fracture now status post ORIF. No hip replacement was done due to the location of the fracture and her young age but that may eventually be needed, later in life. -Continue vitamin-D3 and will need outpatient follow-up for osteoporosis workup (unclear why patient would be osteoporotic other than excessive smoking and polysubstance abuse) and consideration of a bisphosphonate. -Continue PT and OT evaluation and treatment. 2. Anxiety disorder, chronic, present on admission. Stable. -Continue clonidine 0.1 mg twice daily and hydroxyzine 25 mg three times daily. 3. History of heroin abuse now on suboxone, present on admission. Stable. -Continue dilaudid and oxycodone and restart Suboxone at time of discharge (6-24 hours after last narcotic dose). -Maintained on Suboxone 16 mg sublingual daily and will resume as an outpatient. Disposition: Likely to discharge home with outpatient physical and occupational therapies either this afternoon or tomorrow morning depending upon gathering of equipment needed for mobility outpatient. Quality VTE Deep Vein Thrombosis/Pulmonary Embolism Present on Admission: No
--- NOTE | 2018-10-12 12:11 | OT.IP.TRT ---
Current Diagnoses Opioid dependence with withdrawal (10/08/18) Anxiety disorder, unspecified (10/08/18) Age-related osteoporosis without current pathological fracture (10/08/18) Fracture of unspecified part of neck of left femur, initial encounter for closed fracture (10/08/18) Personal history of other specified conditions (10/08/18) Surgery Performed Operation Date: 10/08/18 19:10 Actual Procedures p ORIF Hip DHS - Momo Ayala MD Occupational Therapy Treatment Note M2 OT-IP Current Condition Start: 10/09/18 13:21 Freq: Status: Active Protocol: Document 10/11/18 10:36 [facility] (Rec: 10/11/18 10:58 [facility] [id number]) Occupational Therapy Current Condition Current Condition Evaluation Date 10/11/18 Treatment Diagnosis Displaced left femoral neck fracture Diagnosis Onset Date 10/08/18 Weight Bearing Status Weight Bearing Status Touch Down Weight Bearing Allowed Weight Bearing Amount (enter % LLE TTWB or #) (%) M3 OT- IP Subjective and Pain Start: 10/09/18 13:21 Freq: Status: Active Protocol: Document 10/12/18 12:00 [facility] (Rec: 10/12/18 12:11 [facility] [id number]) OT- Subjective Occupational Therapy Visit Type Type Treatment Note Visit Start Time 09:30 Visit Stop Time 10:10 Total Visit Minutes 40 Occupational Therapy Visit Comments Patient Comments Pt willing to get up for therapy , and wanting to use the bathroom. Patient/Caregiver Goals Pt states would like to go home. OT Pain Assessment Pain When Pain Assessed At Rest Pain Present Pain Present Denied Pain M4 OT- IP ADL's Start: 10/09/18 13:21 Freq: Status: Active Protocol: Document 10/12/18 12:00 [facility] (Rec: 10/12/18 12:11 [facility] [id number]) OT ADL-Grooming General Evaluation Grooming Ability Independent Comments OT Grooming Comments Pt independent with FWW at the sink for all grooming needs. OT ADL-Oral Care General Eval Oral Care Ability Independent OT ADL-Dressing General Eval Lower Body Dressing Ability Standby Assistance Comments OT Dressing Comments SBA while standing with FWW to tevin leggings over her hips and good safety for TTWB. Pt able to lean forwards in the bed in long sitting to tevin clothing over LLE. OT ADL-Toileting General Evaluation Toileting Ability Independent OT ADL-Bathing Comments OT Bathing Comments Pt states showered yesterday and realizes will need tub bench at home. M5 OT- IP IADL's Start: 10/09/18 13:21 Freq: Status: Active Protocol: Document 10/11/18 10:36 [facility] (Rec: 10/11/18 10:58 [facility] [id number]) OT-Instrumental Activities of Daily Living Home Safety Awareness Home Safety Comments At this time pt will need assist for IADL needs. In addition will need assist from family to care for her children. M6 OT- IP Functional Cognition Start: 10/09/18 13:21 Freq: Status: Active Protocol: Document 10/12/18 12:00 [facility] (Rec: 10/12/18 12:11 [facility] [id number]) Cognitive Factors Limiting Selfcare Function Cognitive Ability Level of Alertness Alert Patient Orientation Name Place Situation Attention Span Ability Capable of Focused Attention Capable of Sustained Attention Ability to Follow Commands Able to Follow Multi-Step Commands Memory Description No Deficits Noted Cognitive Comments Cognitive Assessment Comments Appears intact at this time. M7 OT- IP Mobility and Balance Start: 10/09/18 13:21 Freq: Status: Active Protocol: Document 10/12/18 12:00 [facility] (Rec: 10/12/18 12:11 [facility] [id number]) OT- Bed Mobility Assessment Supine to Sit Supine to Sit Assist Standby Assistance Scooting Scooting to Edge of Bed Independent OT-Transfer Assessment Sit to and From Stand Sit to and from Stand Independent Standby Assistance Transfers Transfer Ability Independent Standby Assistance Technique Transfer Destination Bed Toilet Devices Transfer Assistive Devices Gait Belt Front Wheeled Walker Comments Mobility Comments Trial of use of leg ink maker , straight cane, and use of her hands to assist for bed mobility especially for LLE management needs. Pt able to use her hands to help get LLE into and out of the bed today. OT- Balance Assessment Sitting Balance and Reactions Static Sitting Balance Ability Normal Dynamic Sitting Balance Ability Normal Standing Balance and Reactions Static Standing Balance Ability Good M8 OT- IP Objective Assessments Start: 10/09/18 13:21 Freq: Status: Active Protocol: Document 10/11/18 10:36 [facility] (Rec: 10/11/18 10:58 [facility] [id number]) OT Gross Range of Motion Upper Extremity Range of Motion Assessment Within Functional Limits OT Strength Upper Extremity Strength Assessment Within Functional Limits Comments Strength Comments WFL OT- Coordination Assessment Comments Coordination Comments intact M9 OT- IP Assessment and Plan Start: 10/09/18 13:21 Freq: Status: Active Protocol: Document 10/12/18 12:00 [facility] (Rec: 10/12/18 12:11 [facility] [id number]) OT Summary Assessment and Plan Potential Rehabilitation Potential Good Analytic Complexity at Evaluation Low Summary OT Impairments Functional Mobility Dressing Toileting Bathing Toilet Transfers Shower Transfers Progress Towards Goals Progressing Toward Goals Assessment Summary Pt much improved today and mostly SBA to independent with mobility with FWW in the room and dressing/grooming/and toileting needs. Goals Patient/Caregiver Education Goal Demonstrate Post-Op Precautions Caregiver Independent Assisting Patient Days to Meet Goals 1 Frequency of Treatment Frequency Of Treatment Once a Day Treatment Plan OT Treatment Plan ADL Training Functional Mobility Patient/Family Education Discharge Planning Other Treatment Recommendations and Next Caregiver training Treatment Focus Discharge Recommendations OT Discharge Recommendations Home with Assistance Outpatient PT Home Equipment Needs BSC, tub bench, HHSP, wheel chair, FWW
--- NOTE | 2018-10-12 15:36 | PT.IPTN ---
Current Diagnoses Opioid dependence with withdrawal (10/08/18) Anxiety disorder, unspecified (10/08/18) Age-related osteoporosis without current pathological fracture (10/08/18) Fracture of unspecified part of neck of left femur, initial encounter for closed fracture (10/08/18) Personal history of other specified conditions (10/08/18) Surgery Performed Operation Date: 10/08/18 19:10 Actual Procedures p ORIF Hip DHS - Momo Ayala MD Physical Therapy Treatment Note M2 PT-IP Current Condition Start: 10/08/18 15:51 Freq: Status: Active Protocol: Document 10/09/18 14:08 AB (Rec: 10/09/18 15:51 AB [id number]) Physical Therapy Current Condition Current Condition Evaluation Date 10/09/18 Treatment Diagnosis L displaced femoral neck fx s/ p L hip ORIF; difficulty in walking Onset Date 10/08/18 Weight Bearing Status Weight Bearing Status Touch Down Weight Bearing Allowed Weight Bearing Amount (enter % LLE: TTWB or #) (%) M3 PT-IP Subjective Start: 10/08/18 15:51 Freq: Status: Active Protocol: Document 10/12/18 15:30 [facility] (Rec: 10/12/18 15:36 [facility] [email or web address]) Subjective Physical Therapy Visit Type Type Treatment Note Visit Start Time 15:15 Visit Stop Time 15:30 Total Visit Minutes 15 Number of SEAT COVER MAKER Visits 1 Physical Therapy Visit Comments Patient Comments Pt states she would like to use the bathroom. Therapy Pain Assessment Pain When Pain Assessed At Rest Pain Present Pain Present Pain Reported M4 PT-IP Mobility and Gait Start: 10/08/18 15:51 Freq: Status: Active Protocol: Document 10/12/18 15:30 [facility] (Rec: 10/12/18 15:36 [facility] [id number]) PT-Bed Mobility Assessment Supine to Sit Supine to Sit Standby Assistance Head of Bed Elevated Sit to Supine Sit to Supine Standby Assistance Head of Bed Elevated Scooting Scooting to Edge of Bed Standby Assistance PT-Transfer Assessment Sit to and From Stand Sit to and from Stand Standby Assistance Use of Upper Extremities Equipment Transfer Assistive Device Gait Belt Front Wheeled Walker Orthotic/Prosthetic Devices or Brace: No Transfers Transfer Destination Bed Toilet Transfer Ability Level of Assist Contact Guard Assistance 1 Person Assistance Comments Mobility Comments PT used UE to assist Left LE in bed. Gait Assessment Gait Gait Assistance Required: Standby Assistance Distance (Feet) 30 Able to Maintain Weight Bearing Status Yes During Gait Assistive Devices Assistive Device Gait Belt Front Wheeled Walker Orthotic/Prosthetic Devices or Brace: No Factors Limiting Gait Function Factors Limiting Gait Function Decreased Activity Tolerance Decreased Strength Limited Range of Motion Pain Poor Balance M5 PT-IP Objective Assessments Start: 10/08/18 15:51 Freq: Status: Active Protocol: Document 10/09/18 14:08 AB (Rec: 10/09/18 15:51 AB [id number]) Orientation Orientation/Cognition Level of Alertness Alert Orientation Name Age Place Situation Gross Range of Motion Lower Extremity ROM Assessment Left Impaired Impairments knee flexor tightness noted Strength Lower Extremity Strength Assessment Left Impaired Knee 3-/5 M6 PT-IP Treatment Start: 10/08/18 15:51 Freq: Status: Active Protocol: Document 10/12/18 15:30 [facility] (Rec: 10/12/18 15:36 [facility] [id number]) Physical Therapy Treatment Exercises Exercises Ankle Pumps Gluteal Sets Quad Sets Short Arc Quads Education Education Provided Safety Equipment Issued Equipment Type and Company FWW M7 PT-IP Assessment and Plan Start: 10/08/18 15:51 Freq: Status: Active Protocol: Document 10/12/18 15:30 [facility] (Rec: 10/12/18 15:36 [facility] [id number]) PT Summary Assessment and Plan Summary Assessment Summary Pt is SBA with mobility. She was safe with transfer to toilet and followed WBing with gait. Frequency of Treatment Frequency Of Treatment Twice a Day Treatment Plan Other Recommendations and Next Treatment bed mob with bed sheet/ gait Focus belt., transfers, ambulation Recommendations To Nursing Amount of Assist Needed 1 Person Assist Discharge Recommendations PT Discharge Recommendations Home with Assistance Outpatient PT
--- NOTE | 2018-10-12 15:55 | CM.DANOTE ---
DCP/continued: Reviewed chart. Spoke with Dr. Cohen this AM. She reports that patient medically stable to d/c either today or tomorrow 10-13-18. Patient resides in [facility] therefore, if she feels like another day of therapy at [facility] will be beneficial to her MD in agreement. Met with patient explained SENIOR MEDICAL TRANSCRIPTIONIST role. Patient much more alert and oriented today. Patient reports feeling much better. Spoke with therapy and walker obtained for home use. In addition, patient's marciano/Meaghan came in yesterday to do caregiver training. Current recommendation from therapy is outpatient follow up. Patient reports that she plans to return to [facility] at [address] Patient denies needing any community resources and or services. Patient reports that she is currently unemployed and that her fiancee does odd jobs so that they can get by. Patient denies any type of physical abuse by darwin. Patient encouraged by SENIOR MEDICAL TRANSCRIPTIONIST to stay at [facility] this evening if she believes it will help her get stronger before returning to [facility]. Patient currently undecided. Patient aware by MD that no prescriptions for narcotics will be given upon d/c. Patient currently on suboxene as outpatient and she will need to resume that after hospitalization. No identified needs at this time. SENIOR MEDICAL TRANSCRIPTIONIST to follow up in AM to determine if patient discharged. Patient denies active CPS investigation (refer to previous SENIOR MEDICAL TRANSCRIPTIONIST notes for details). May be helpful to call them when patient discharges with disposition. P: Return to [facility] with supportive fiancee when medically stable. GIORGIO Abrams
--- NOTE | 2018-10-12 18:24 | PC.NURSE ---
Addendum entered by Shira Colunga R.N. 10/12/18 20:29: Patient and her fiance requesting to speak to the Doctor. I notified Ray CHIANG who just took over call marthaUnruly Angie in room to talk to family regarding plan. Family then was gone from room when I returned, pt calling, requesting pain medication. Medicated with Oxycodone 5 mg as well as other PM meds. Rated left leg pain 4/10. She said What is Vistaril? I explained medication, she said I didn't know it was a muscle relaxer. She said I have some of that right here, pulling pill bottle out of her purse which was next to her on the bed. I told her per hospital protocol we could not have any pills in the room, she said that's fine, handing them to me. She said I haven't taken anything--I didn't even have my purse until this morning. At that moment her fiance entered room bringing her a milkshake, I asked her if she wanted him to take them home instead & she said yes that is fine, and she then handed them to him, he then left room. Original Note: Urmila Ox3, VS are stable. Left hip drsg is dry/intact with some shadow drainage. Assisted her to transfer to shower, pt sitting on commode. Set up assist, pt then showered independently. Back to bed. Ate majority of dinner. S.O. and patient's 5 year old in room to visit after dinner. Pt's Mother Juanita also here visiting. Mother & CLINICAL TRANSFORMATION SPECIALIST Baylee came out to nurse johnny to say that Urmila wants to leave hospital. Juanita patient's Mom expressed concern about Urmila's living situation and also said she was unable to get to [facility] today before they closed and still needs to obtain bedside commode so patient can have raised toilet at current residence. Mother stated concern because patient currently lives with marciano in [facility]. Mother states that marciano works sometimes and is not home all day--he leaves to go on jobs & wouldn't be there to help her. I went into room to talk to Urmila, she states she wants to leave hospital tonight. I told her that per MD & case mgmt notes, they think it would be better for her to stay overnight so that the appropriate equipment is ready at patient's residence prior to DC. I explained that no DC orders have been written. After patient's Mother & myself left room so that patient & fiance could talk about this, patient's Mother and I both heard patient & SO yelling loudly in room arguing. Mother went back into room to break it up.
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
[2018-10-13] MEDS: OXYCODONE IR 5 MG TABLET PO ×4 (00:14→13:09)
[2018-10-13 00:20] VITALS: BP 115/68; PULSE 86; RESP 15; TEMP 36.8; O2SAT 98
[2018-10-13 03:45] VITALS: BP 100/60; PULSE 73; RESP 15; TEMP 36.5; O2SAT 99
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
[2018-10-13 08:00] VITALS: BP 123/73; PULSE 84; RESP 19; TEMP 37.1; O2SAT 99
--- NOTE | 2018-10-13 08:13 | CM.DPC ---
DCP/continued: Reviewed chart. Spoke with Dr. Cohen this AM and patient expected to discharge. Placed call to [employer].P[employer]. # spoke with Esvin. He provided [employer]SL INTERPRETER with case number of [id number]. Per Esvin, case has been screened out meaning report taken and no further information needed by CPS. Notified Esvin that patient discharging today. P: Home/motel today with [place]. GIORGIO Abrams
[2018-10-13] MEDS: ACETAMINOPHEN 325 MG TABLET 975 MG PO ×2 (08:55→14:21)
[2018-10-13] MEDS: CALCIUM CARB/VIT D3 500/200 TABLET 1 EACH PO (08:55)
[2018-10-13] MEDS: ASPIRIN EC 81 MG TABLET PO (08:56)
[2018-10-13] MEDS: cloNIDine 0.1 MG TABLET PO (08:56)
[2018-10-13] MEDS: DOCUSATE 100 MG CAPSULE PO (08:56)
[2018-10-13] MEDS: hydrOXYzine pamoate 25 MG CAPSULE PO ×2 (08:56→14:21)
--- NOTE | 2018-10-13 10:34 | PM.PNPO.1 ---
Subjective Date Patient Seen: 10/13/18 Time Patient Seen: 10:34 Interval history: Hospital day 6, postop day 5 following displaced left femoral neck fracture with ORIF in dynamic hip screw. she has remained stable postoperatively. Pain has improved some. Using oxycodone for pain. she is toe-touch weight-bearing to left leg x6 weeks postop. Patient is scheduled for discharge to home today by hospitalist. Exam Vital Signs (past 8 hours): - 10/13/18 03:45 10/13/18 08:00 Temperature 97.7 F 98.7 F Pulse Rate 73 84 Respiratory Rate 15 19 Blood Pressure 100/60 123/73 Pulse Oximetry 99 99 Oxygen Delivery Method Room Air Oxygen Flow Rate 0 Narrative Exam Narrative: Alert, oriented no acute distress resting in bed. legs. Dressing to left hip is dry with some area of shadowing. No calf pain or swelling. Pulses symmetrical. Objective Labs Result Diagrams: 10/11/18 08:05 10/11/18 08:05 Assessment & Plan Post-op Postoperative Procedures Operation Date: 10/08/18 19:10 Actual Procedures Side Surgeon p ORIF Hip DHS Momo Ayala MD Plan: Will have nurse change her left hip dressing to a CovRsite dressing before discharge. Patient will be toe-touch weight-bearing to left leg x6 weeks postop. She will need a postop visit at the orthopedic office in 2 weeks after surgery. discharge pending hospitalist clearance. Quality VTE Deep Vein Thrombosis/Pulmonary Embolism Present on Admission: No
--- NOTE | 2018-10-13 11:00 | PT.IPTN ---
Current Diagnoses Opioid dependence with withdrawal (10/08/18) Anxiety disorder, unspecified (10/08/18) Age-related osteoporosis without current pathological fracture (10/08/18) Fracture of unspecified part of neck of left femur, initial encounter for closed fracture (10/08/18) Personal history of other specified conditions (10/08/18) Surgery Performed Operation Date: 10/08/18 19:10 Actual Procedures p ORIF Hip DHS - Momo Ayala MD Physical Therapy Treatment Note M2 PT-IP Current Condition Start: 10/08/18 15:51 Freq: Status: Active Protocol: Document 10/09/18 14:08 AB (Rec: 10/09/18 15:51 AB [id number]) Physical Therapy Current Condition Current Condition Evaluation Date 10/09/18 Treatment Diagnosis L displaced femoral neck fx s/ p L hip ORIF; difficulty in walking Onset Date 10/08/18 Weight Bearing Status Weight Bearing Status Touch Down Weight Bearing Allowed Weight Bearing Amount (enter % LLE: TTWB or #) (%) M3 PT-IP Subjective Start: 10/08/18 15:51 Freq: Status: Active Protocol: Document 10/13/18 11:00 GGD (Rec: 10/13/18 11:46 GGD [id number]) Subjective Physical Therapy Visit Type Type Patient Refusal Notes Pt states she D/C home today and has no needs
--- NOTE | 2018-10-13 11:32 | OT.IP.TRT ---
Current Diagnoses Opioid dependence with withdrawal (10/08/18) Anxiety disorder, unspecified (10/08/18) Age-related osteoporosis without current pathological fracture (10/08/18) Fracture of unspecified part of neck of left femur, initial encounter for closed fracture (10/08/18) Personal history of other specified conditions (10/08/18) Surgery Performed Operation Date: 10/08/18 19:10 Actual Procedures p ORIF Hip DHS - Momo Ayala MD Occupational Therapy Treatment Note M2 OT-IP Current Condition Start: 10/09/18 13:21 Freq: Status: Active Protocol: Document 10/11/18 10:36 [facility] (Rec: 10/11/18 10:58 [facility] [id number]) Occupational Therapy Current Condition Current Condition Evaluation Date 10/11/18 Treatment Diagnosis Displaced left femoral neck fracture Diagnosis Onset Date 10/08/18 Weight Bearing Status Weight Bearing Status Touch Down Weight Bearing Allowed Weight Bearing Amount (enter % LLE TTWB or #) (%) M3 OT- IP Subjective and Pain Start: 10/09/18 13:21 Freq: Status: Active Protocol: Document 10/13/18 11:31 [facility] (Rec: 10/13/18 11:32 [facility] [id number]) OT- Subjective Occupational Therapy Visit Type Type Patient Refusal Notes Pt refusing at this time as wanting to sleep and going home later today.
== END 2018-10-13 15:36 | disposition home or self-care (01) | DRG 309 ==
LOC: ED 16:13 → AC 16:50
PROVIDERS: Internal Medicine; Orthopaedic Surgery; Admitting Provider Internal Medicine; Emergency Provider Emergency Medicine; Family Provider Physician Assistant; PCP Physician Assistant; Visit Provider Internal Medicine
PROC: 0QS704Z Reposition Left Upper Femur with Internal Fixation Device, Open Approach (ICD-10-PCS; principal; 2018-10-08 19:10)
DX: M80.852A Other osteoporosis with current pathological fracture, left femur, initial encounter for fracture (principal); F11.20 Opioid dependence, uncomplicated; F17.210 Nicotine dependence, cigarettes, uncomplicated; F41.9 Anxiety disorder, unspecified; W18.30XA Fall on same level, unspecified, initial encounter
CPT/HCPCS: 36415; 36591; 72170; 73502; 75635; 76000; 80048; 80053; 80305; 82550; 83605; 83735; 84145; 85014; 85018; 85025; 85651; 86140; 93971; 94762; 97116; 97162; 97165; 97530; 97535; 99283; J0690; J1100; J1170; J1885; J2060; J2250; J2405; J2704; J3010; Q9967

== ENCOUNTER 2022-05-05 19:34 | Emergency (ER) | payer OTHER, MEDICAID, SELFPAY ==
[2018-10-08 16:22] VITALS: BMI 19.3
[2022-05-05 19:48] VITALS: BP 213/105; PULSE 100; RESP 18; TEMP 36.6; O2SAT 100; BMI 21.4
--- NOTE | 2022-05-05 21:49 | ED_ITS ---
HPI - Extremity Problem General Chief complaint: Extremity Problem,Nontraumatic Stated complaint: Thinks spider bite Time Seen by Provider: 05/05/22 21:47 Source: patient Mode of arrival: Ambulatory History of Present Illness HPI Narrative: Patient is a 42-year-old female with history of left hip fracture and currently on Suboxone who presents with left foot pain and redness. She thinks a spider bit her it started today. She denies fever or chills. The has quite a bit of pain on the top of her foot. She noticed that it is getting red. Her whole leg up to her knee he is patchy erythematous blanchable she says that it has been li ke that for a few months. She really can not tell me. She denies chills. She has no chest pain or shortness of breath. She walks with canes. Related Data Home Medications Medication Instructions Recorded Confirmed buprenorphine 8 mg-naloxone 2 mg 16 mg sublingual DAILY ##0 06/15/17 10/08/18 sublingual film (Suboxone) clonidine HCl 0.1 mg tablet 0.1 mg PO BID 10/08/18 10/08/18 hydroxyzine HCl 25 mg tablet 25 mg PO TID 10/08/18 10/08/18 Previous Rx's Medication Instructions Recorded aspirin 81 mg tablet,delayed 81 mg PO BID #60 tabs 10/13/18 release calcium carbonate 500 mg calcium 500 mg PO BID #60 tabs 10/13/18 (1,250 mg) tablet (Calcium 500) cholecalciferol (vitamin D3) 25 1,000 unit PO DAILY #30 tabs 10/13/18 mcg (1,000 unit) chewable tablet (Vitamin D3) norethindrone 1 mg-ethinyl See Rx Instructions .Route 03/13/21 estradiol 20 mcg (24)-iron 75 mg .COMPLEX #84 tabs (4) tablet (Keisha 24 Fe) sulfamethoxazole 800 1 tab PO BID 7 days #14 tabs 05/05/22 mg-trimethoprim 160 mg tablet (Bactrim DS) Allergies Allergy/AdvReac Type Severity Reaction Status Date / Time No Known Drug Allergies Allergy Verified 05/05/22 19:48 Review of Systems Review of Systems Narrative: GENERAL: Denies chills,fever HEENT: Denies throat pain RESPIRATORY: Denies dyspnea, cough, wheezing CARDIOVASCULAR: Denies chest pain, palpitations GASTROINTESTINAL: Denies nausea, vomiting MUSCULOSKELETAL: Denies extremity pain, injury SKIN: See HPI NEUROLOGIC: Denies weakness, dizziness, headache, numbness 8 point review of systems is negative except for those stated above and HPI Patient History Medical History Opiate addiction Family History Father Age: 66 Diabetes mellitus Hypertension High cholesterol Grandfather Heart disease Social History household members: significant other and children Smoking Status: Current every day smoker alcohol intake: never Smoking Status: Current every day smoker Substance Use Type: does not use and former substance user Exam Initial Vital Signs Initial Vital Signs: Vital Signs Temperature 97.8 F 05/05/22 19:48 Pulse Rate 100 H 05/05/22 19:48 Respiratory Rate 18 05/05/22 19:48 Blood Pressure 213/105 H 05/05/22 19:48 Pulse Oximetry 100 05/05/22 19:48 Oxygen Delivery Method 05/05/22 19:48 GENERAL: Alert 42-year-old female appears older than stated age and in no acute distress. HEENT: Head atraumatic,EOMI, pupils reactive, face symmetric, moist mucous membranes CARDIOVASCULAR: Regular rate and rhythm without murmurs, rubs or gallops. RESPIRATORY: Breath sounds equal bilaterally, no wheezes rales or rhonchi. EXTREMITIES: Normal range of motion, no clubbing or edema. Neurovascularly intact. Left leg is shorter than the right leg NEUROLOGICAL: Alert and oriented x4 SKIN: Left leg is blotchy erythematous she does have some small erythema on the dorsal part of her foot no obvious fluctuation or drainage no bite farooq. Tender to touch. Course Orders Ordered: ED Orders 05/05/22 22:35 CBC Auto Diff [Complete Blood Count AUTO DIFF] Stat CMP [Comprehensive Metabolic Panel] Stat D Dimer Stat Procalcitonin Stat Discontinued Medications Trimethoprim/Sulfamethoxazole (Trimeth/Sulfa 160/800 Prepack) 1 bottle MISC SEEINSTR ONE Stop: 05/05/22 23:30 Last Admin: 05/06/22 00:15 Dose: Not Given Documented By: SB Trimethoprim/Sulfamethoxazole (Trimeth/Sulfa 160/800 (Ds) Tablet) 1 tab PO NOW ONE Stop: 05/05/22 23:31 Last Admin: 05/06/22 00:00 Dose: 1 tab Documented By: AUDREY Vital Signs Vital signs: Vital Signs - 8 hr 05/05/22 19:48 Temperature 97.8 F Pulse Rate 100 H Respiratory Rate 18 Blood Pressure 213/105 H Pulse Oximetry 100 Oxygen Delivery Method Room Air MDM - Extremity (Nontraumatic) Lab Data Result diagrams: 05/05/22 22:35 05/05/22 22:35 Labs: Lab Results 05/05/22 05/05/22 05/05/22 Range/Units 22:35 22:35 22:35 WBC 11.8 H (4.5-11.0) X10^3/uL RBC 4.16 (4.0-5.2) X10^6/uL Hgb 12.0 (12.0-16.0) g/dL Hct 35.8 L (36-46) % MCV 86.1 (80-100) fL MCH 29.0 (26-34) PG MCHC 33.6 (30-36) % RDW 13.6 (11.6-14.8) % Plt Count 321 (150-400) X10^3/uL Neut % (Auto) 80.2 H (50-75) % Lymph % (Auto) 12.9 L (25-40) % [place]ingham % (Auto) 5.2 (3-14) % Eos % (Auto) 0.8 L (2-4) % Baso % (Auto) 0.9 (0-2) % Neut # (Auto) 9400 H (4240-7122) /uL Lymph # (Auto) 1500 (5909-8098) /uL [place] # (Auto) 600 (0-900) /uL Eos # (Auto) 100 (0-450) /uL Baso # (Auto) 100 (0-100) /uL D-Dimer 257 (<500) ng/ml Sodium 137 (137-145) mmol/L Potassium 3.7 (3.4-5.1) mmol/L Chloride 103 (98-107) mmol/L Carbon Dioxide 27 (22-32) mmol/L BUN 19 H (7-17) mg/dL Creatinine 0.52 (0.52-1.04) mg/dL Estimated GFR > 60 (>60) mL/min BUN/Creatinine Ratio 36.5 H (6-22) Glucose 120 H (70-100) mg/dL Calcium 8.5 (8.4-10.2) mg/dL Total Bilirubin 0.2 (0.2-1.3) mg/dL AST 20 (14-36) IU/L ALT 18 (<35) IU/L Alkaline Phosphatase 111 (38-126) U/L Total Protein 7.3 (6.3-8.2) g/dL Albumin 4.1 (3.5-5.0) g/dL Globulin 3.2 (1.7-4.1) g/dL Albumin/Globulin Ratio 1.3 (1.0-2.8) Procalcitonin (<0.5) ng/mL 05/05/22 Range/Units 22:35 WBC (4.5-11.0) X10^3/uL RBC (4.0-5.2) X10^6/uL Hgb (12.0-16.0) g/dL Hct (36-46) % MCV (80-100) fL MCH (26-34) PG MCHC (30-36) % RDW (11.6-14.8) % Plt Count (150-400) X10^3/uL Neut % (Auto) (50-75) % Lymph % (Auto) (25-40) % Bingham % (Auto) (3-14) % Eos % (Auto) (2-4) % Baso % (Auto) (0-2) % Neut # (Auto) (0189-9644) /uL Lymph # (Auto) (1843-3963) /uL [place] # (Auto) (0-900) /uL Eos # (Auto) (0-450) /uL Baso # (Auto) (0-100) /uL D-Dimer (<500) ng/ml Sodium (137-145) mmol/L Potassium (3.4-5.1) mmol/L Chloride (98-107) mmol/L Carbon Dioxide (22-32) mmol/L BUN (7-17) mg/dL Creatinine (0.52-1.04) mg/dL Estimated GFR (>60) mL/min BUN/Creatinine Ratio (6-22) Glucose (70-100) mg/dL Calcium (8.4-10.2) mg/dL Total Bilirubin (0.2-1.3) mg/dL AST (14-36) IU/L ALT (<35) IU/L Alkaline Phosphatase (38-126) U/L Total Protein (6.3-8.2) g/dL Albumin (3.5-5.0) g/dL Globulin (1.7-4.1) g/dL Albumin/Globulin Ratio (1.0-2.8) Procalcitonin < 0.03 (<0.5) ng/mL MDM Narrative Medical decision making narrative: Patient has erythema on her left leg she says it has been there for a while over not entirely sure. She really complaining of pain on her left foot. There is no obvious drainable abscess. She does have a wound not draining. Tender to touch. At this time will treat her for antibiotics. Blood work is overall reassuring. D-dimer was is checked and is negative this is unlikely DVT no need for imaging. She really does not have any swelling or calf pain either. At this time will put her on Bactrim. She is initially noted to be extremely hypertensive and tachycardic. She has no chest pain or shortness of breath. Discharge Plan Departure Patient Disposition: Home Clinical Impression: Cellulitis Instructions: DI for Cellulitis -- Adult Activity Restrictions/Additional Instructions: *You have been diagnosed with cellulitis left foot *What to do: Please monitor for worsening redness try warm compresses on her foot it may need to be drained. Please monitor your blood pressure was noted to be quite elevated initially. Check her blood pressure once daily and record *Continue to take medications as directed Bactrim 1 tablet twice a day for 7 days --> SENT TO [facility] *Follow up with your primary care provider in 2-3 days or call [phone] *Return to ER if you should have increasing redness fever pain or any new, worsening or concerning symptoms Prescriptions: New sulfamethoxazole-trimethoprim [Bactrim DS] 800-160 mg tablet 1 tab PO BID 7 Days Qty: 14 0RF No Action buprenorphine-naloxone [Suboxone] 8 MG/2 MG film 16 mg Sublingual DAILY Qty: 0 norethindrone-e.estradiol-iron [Keisha 24 Fe] 1 mg-20 mcg (24)/75 mg (4) tablet See Rx Instructions .ROUTE .COMPLEX Qty: 84 3RF Dose Instruction: TAKE ONE TABLET BY MOUTH ONE TIME DAILY, Please make an appt for further refills Rx Instructions: TAKE ONE TABLET BY MOUTH ONE TIME DAILY clonidine HCl 0.1 MG tablet 0.1 mg PO BID hydroxyzine HCl 25 mg tablet 25 mg PO TID aspirin 81 mg Tablet,Delayed Release (Dr/Ec) 81 mg PO BID Qty: 60 0RF calcium carbonate [Calcium 500] 500 mg calcium (1,250 mg) tablet 500 mg PO BID Qty: 60 0RF cholecalciferol (vitamin D3) [Vitamin D3] 1,000 unit tablet,chewable 1,000 unit PO DAILY Qty: 30 0RF Referrals: Kyung Capellan PA-C [Primary Care Provider] - Visit Report Forms: Patient Portal/API
[2022-05-05 23:00] LABS: Add Manual Diff / Slide Review NO; Basophils Absolute Auto 100 /uL (0-100); Basophils Percent Auto 0.9 % (0-2); Eosinophils Absolute Auto 100 /uL (0-450); Eosinophils Percent Auto 0.8 % (2-4); Hematocrit 35.8 % (36-46); Lymphocytes Absolute Auto 1500 /uL (1100-4500); Lymphocytes Percent Auto 12.9 % (25-40); Mean Corpuscular HGB Conc 33.6 % (30-36); Mean Corpuscular Volume 86.1 fL (80-100); Monocytes Absolute Auto 600 /uL (0-900); Monocytes Percent Auto 5.2 % (3-14); Neutrophils Absolute Auto 9400 /uL (1500-7000); Neutrophils Percent Auto 80.2 % (50-75); Platelet Count 321 X10^3/uL (150-400); Red Blood Cell Count 4.16 X10^6/uL (4.0-5.2); Red Cell Distribution Width 13.6 % (11.6-14.8); White Blood Cell Count 11.8 X10^3/uL (4.5-11.0)
[2022-05-05 23:06] LABS: D Dimer 257 ng/ml (<500)
[2022-05-05 23:11] LABS: Alanine Aminotransferase 18 IU/L (<35); Albumin 4.1 g/dL (3.5-5.0); Albumin Globulin Ratio 1.3 (1.0-2.8); Alkaline Phosphatase 111 U/L (38-126); Aspartate Aminotransferase 20 IU/L (14-36); BUN Creatinine Ratio 36.5 (6-22); Bilirubin Total 0.2 mg/dL (0.2-1.3); Blood Urea Nitrogen 19 mg/dL (7-17); Calcium 8.5 mg/dL (8.4-10.2); Carbon Dioxide 27 mmol/L (22-32); Chloride 103 mmol/L (98-107); Estimated Glomerular Filt Rate > 60 mL/min (>60); Globulin 3.2 g/dL (1.7-4.1); Glucose 120 mg/dL (70-100); HEMOLYSIS < 15 (0-50); Potassium 3.7 mmol/L (3.4-5.1); Sodium 137 mmol/L (137-145); Total Protein 7.3 g/dL (6.3-8.2)
[2022-05-05 23:26] LABS: Procalcitonin < 0.03 ng/mL (<0.5)
[2022-05-06] MEDS: TRIMETH/SULFA 160/800 (DS) TABLET 1 TAB PO
== END 2022-05-06 00:17 | disposition home or self-care (01) ==
PROVIDERS: Emergency Provider Emergency Medicine; Family Provider Physician Assistant; PCP Physician Assistant
DX: L03.116 Cellulitis of left lower limb (principal)
CPT/HCPCS: 36415; 80053; 84145; 85025; 85379; 99283

== ENCOUNTER 2023-08-13 22:52 | Emergency (ER) | payer OTHER, MEDICAID, SELFPAY ==
[2018-10-08 16:22] VITALS: BMI 19.3
[2023-08-13 23:03] VITALS: BP 177/78; PULSE 99; RESP 20; TEMP 36.6; O2SAT 99; BMI 21.4
[2023-08-14] VITALS (8 sets, daily range): BP systolic 136–167; BP diastolic 60–90; PULSE 85–95; RESP 18; O2SAT 92–99
--- NOTE | 2023-08-14 02:49 | ED.GENADULT ---
HPI - General Adult General Chief complaint: Hypertension Stated complaint: very high BP, sent by md Time Seen by Provider: 08/14/23 01:17 Source: patient Mode of arrival: Wheelchair History of Present Illness HPI narrative: 43-year-old woman with history of polysubstance use disorder, currently on Suboxone for the opioid component of that but continues to use methamphetamine. Was [place] [facility] [place] and had not had her complete dose of Suboxone had use methamphetamine recently and was noted to have a blood pressure with systolics in the 200s and the nurse instructed her to come to the ER for further evaluation because she could ?have a stroke or heart attack and immediately?. Related Data Home Medications Medication Instructions Recorded Confirmed buprenorphine 8 mg-naloxone 2 mg 16 mg sublingual DAILY ##0 06/15/17 10/08/18 sublingual film (Suboxone) clonidine HCl 0.1 mg tablet 0.1 mg PO BID 10/08/18 10/08/18 hydroxyzine HCl 25 mg tablet 25 mg PO TID 10/08/18 10/08/18 Previous Rx's Medication Instructions Recorded aspirin 81 mg tablet,delayed 81 mg PO BID #60 tabs 10/13/18 release calcium carbonate 500 mg calcium 500 mg PO BID #60 tabs 10/13/18 (1,250 mg) tablet (Calcium 500) cholecalciferol (vitamin D3) 25 1,000 unit PO DAILY #30 tabs 10/13/18 mcg (1,000 unit) chewable tablet (Vitamin D3) norethindrone 1 mg-ethinyl 1 tab PO DAILY #84 tabs 01/26/23 estradiol 20 mcg (24)-iron 75 mg (4) tablet (Kesiha 24 Fe) Allergies Allergy/AdvReac Type Severity Reaction Status Date / Time No Known Drug Allergies Allergy Verified 05/05/22 19:48 Patient History Medical History (Updated 08/14/23 @ 03:44 by Michelle Kaba MD) Opiate addiction Family History Father Age: 67 Diabetes mellitus Hypertension High cholesterol Grandfather Heart disease Social History household members: significant other and children Smoking Status: Current every day smoker alcohol intake: never Smoking Status: Current every day smoker Substance Use Type: does not use and former substance user Exam Initial Vital Signs Initial Vital Signs: Vital Signs Temperature 97.9 F 08/13/23 23:03 Pulse Rate 99 H 08/13/23 23:03 Respiratory Rate 20 08/13/23 23:03 Blood Pressure 177/78 H 08/13/23 23:03 Pulse Oximetry 99 08/13/23 23:03 Oxygen Delivery Method Room Air 08/13/23 23:03 Course Vital Signs Vital signs: Vital Signs - 8 hr 08/13/23 23:03 08/14/23 01:26 08/14/23 01:27 Temperature 97.9 F Pulse Rate 99 H 95 H Respiratory Rate 20 Blood Pressure 177/78 H 167/76 H Pulse Oximetry 99 98 Oxygen Delivery Method Room Air 08/14/23 01:27 08/14/23 01:30 08/14/23 01:35 Temperature Pulse Rate 90 86 Respiratory Rate 18 Blood Pressure 152/66 H Pulse Oximetry 97 99 Oxygen Delivery Method 08/14/23 02:00 08/14/23 02:00 Temperature Pulse Rate 90 Respiratory Rate Blood Pressure 136/60 Pulse Oximetry 92 Oxygen Delivery Method Medical Decision Making MDM Narrative Medical decision making narrative: CC: Elevated blood pressure in the setting of mild opioid withdrawal and methamphetamine use Complicating co-morbidities: Polysubstance use Data collected from: patient Social determinants of health that may influence the patients condition: Housing instability Medical records reviewed: Hospitalization after hip fracture in September of 2018 reviewed Differential considered: Medication induced hypertension, essential hypertension Exam documented above, pertinent findings include: By 2:00 a.m. when patient is examined, she is sleeping comfortably, methamphetamine use earlier this morning has worn off, blood pressure is 140/78, heart and lungs are benign. Discussion: 43-year-old woman with polysubstance use disorder still using fairly regular methamphetamine while also doing relatively well on Suboxone. Her boyfriend is going to inpatient rehab within the next week and it sounds like he is her primary source of methamphetamine. She sounds fairly committed to stopping methamphetamine and continuing with Suboxone and her sober program. I recommended that she check her blood pressure prior to methamphetamine use and keep track of numbers. Housing situation is tenuous at this point so she definitely does not have the option of home blood pressure monitor. She does not have a primary care physician and I did encourage her to consider looking for 1. We talked about high blood pressure as chronic diagnosis that does need to be chronically treated also as an acute diagnosis secondary to her methamphetamine use that will eventually lead to severe heart issues. She seems to understand all of this. At this point I do not think medication intervention is required and she is safe for discharge home Discharge Plan Departure Patient Disposition: Home Clinical Impression: Elevated blood pressure reading, Methamphetamine use disorder, moderate, Opioid use disorder, severe, in early remission Instructions: DI for High Blood Pressure Activity Restrictions/Additional Instructions: Thank you for coming in today After number of hours, your blood pressure has come down to almost normal levels. I suspect that the elevated radiating earlier today was related more to methamphetamine use to than 2 baseline high blood pressure. While you are continuing to use methamphetamine it is very difficult to tell 1 from the other. It does sound like you have been considering completely stopping methamphetamine and are close to doing so. I encourage you to take that next step to stopping completely. To make a diagnosis of high blood pressure we do need to have a number of readings in different settings. If possible, try to keep track of your blood pressures when they are measured. Most grocery stores and pharmacies will have a blood pressure cuff near the pharmacy section in the back of the store. I highly recommend that you begin calling around to see if you can get into see a primary care physician. Primary care appointments are difficult to get so when the 1st appointment is in 4 months, please go ahead and take that appointment and continue calling other offices to see if earlier spots are available If you find that you are getting worse or develop any new symptoms, please feel free to return to the emergency department for further evaluation. Prescriptions: No Action buprenorphine-naloxone [Suboxone] 8 MG/2 MG film 16 mg Sublingual DAILY Qty: 0 Keisha 24 Fe 1 mg-20 mcg (24)/75 mg (4) tablet 1 tab PO DAILY Qty: 84 3RF clonidine HCl 0.1 MG tablet 0.1 mg PO BID hydroxyzine HCl 25 mg tablet 25 mg PO TID aspirin 81 mg Tablet,Delayed Release (Dr/Ec) 81 mg PO BID Qty: 60 0RF calcium carbonate [Calcium 500] 500 mg calcium (1,250 mg) tablet 500 mg PO BID Qty: 60 0RF cholecalciferol (vitamin D3) [Vitamin D3] 1,000 unit tablet,chewable 1,000 unit PO DAILY Qty: 30 0RF Referrals: Miscellaneous,Doctor, MD [Primary Care Provider] - Stand Alone Forms: Patient Portal/API
== END 2023-08-14 04:05 | disposition home or self-care (01) ==
PROVIDERS: Emergency Provider Emergency Medicine
DX: R03.0 Elevated blood-pressure reading, without diagnosis of hypertension (principal); F15.90 Other stimulant use, unspecified, uncomplicated; F11.91 Opioid use, unspecified, in remission
CPT/HCPCS: 99282; 99284